=== PATIENT | female | born 1975 | race Caucasian/White ===

== ENCOUNTER → 2020-06-24 15:28 | Outpatient (CLI) | payer OTHER, MEDICAID, SELFPAY | PROVIDERS: PCP Pediatrics; Visit Provider Nurse Practitioner Family | DX: Z03.818 Encounter for observation for suspected exposure to other biological agents ruled out (principal) | CPT/HCPCS: U0003 ==

== ENCOUNTER → 2020-08-21 12:51 | Outpatient (CLI) | payer BC, MEDICAID, SELFPAY ==
[2020-08-22 09:21] LABS: Covid-19 Nasal PCR Sendout Lex NOT DETECTED
== END ==
PROVIDERS: PCP Family Medicine; Visit Provider Family Medicine
DX: Z03.818 Encounter for observation for suspected exposure to other biological agents ruled out (principal)
CPT/HCPCS: U0004

== ENCOUNTER → 2020-08-27 12:22 | Outpatient (CLI) | payer OTHER, SELFPAY ==
[2020-08-27 15:35] LABS: Coronavirus 19 IgG Antibody Negative (Negative); Coronavirus 19 IgM Antibody Negative (Negative)
[2020-08-28 16:04] LABS: Covid-19 Nasal PCR Sendout Lex Not Detected
== END ==
PROVIDERS: PCP Family Medicine; Visit Provider Family Medicine
DX: Z03.818 Encounter for observation for suspected exposure to other biological agents ruled out (principal); Z01.84 Encounter for antibody response examination
CPT/HCPCS: 86328; U0004

== ENCOUNTER 2020-09-04 10:34 | Outpatient (CLI) | payer OTHER, SELFPAY ==
[2020-09-04 11:00] VITALS: BP 96/56; PULSE 78; RESP 18; TEMP 35.9
== END 2020-09-04 11:00 | disposition home or self-care (01) ==
PROVIDERS: PCP Family Medicine; Visit Provider Family Medicine
DX: M62.830 Muscle spasm of back (principal)
CPT/HCPCS: 96372

== ENCOUNTER 2020-09-04 13:06 | Emergency (ER) | payer OTHER, MEDICAID, SELFPAY ==
[2020-09-04 13:11] VITALS: BP 115/62; PULSE 82; RESP 17; TEMP 36.8; O2SAT 100; BMI 31.4
--- NOTE | 2020-09-04 13:24 | HMH.EDGENADL ---
ED Disposition Clinical Impression: Back spasm Disposition: Home, Self-Care Condition on Discharge: Good Instructions: DI for Chronic Pain -- Adult Prescriptions: Ketorolac Tromethamine [Toradol 10mg tablet] 10 mg PO Q6H 5 Days #20 tab Transmission Status: Pending to [facility][id number] Referrals: Jerry Malcolm MD [Primary Care Provider] - - Critical Care Critical Care Time: No Attestation: On 09/04/20, the high probability of a clinically significant, sudden or life threatening deterioration of the following system(s) required my full and direct attention, intervention and personal management. The time I documented below is in addition to time spent performing reported procedures but includes the following listed in this critical care notation. Medical Decision Making - Medical Records Medical records reviewed: Yes: I reviewed the patient's medical records. - Tim Inquiry Pt receiving controlled substance: No Tim was queried for this patient: No Vital Signs: 09/04/20 13:11 09/04/20 13:37 09/04/20 14:14 Temperature 98.2 F Temperature Source Oral Pulse Rate [Right Radial] 82 60 61 Respiratory Rate 17 20 18 Blood Pressure [Right Arm] 115/62 100/62 L 98/62 L Blood Pressure Mean [Right Arm] 79 74 74 Blood Pressure Source [Right Arm] Automatic Cuff Automatic Cuff Blood Pressure Position [Right Arm] Sitting Sitting 02 Sat by Pulse Oximetry 100 97 95 Oxygen Delivery Method Room Air Room Air Room Air Orders (Tests/Meds): ED MEDICATIONS Discontinued Medications Generic Name Dose Route Start Last Admin Trade Name Freq PRN Reason Stop Dose Admin Hydromorphone HCl 1 mg 09/04/20 13:25 09/04/20 13:33 Hydromorphone 2mg/Ml Syringe IM 09/04/20 13:26 1 mg ONCE ONE Administration Ketorolac Tromethamine 60 mg 09/04/20 13:24 09/04/20 13:33 Ketorolac 60mg/2ml Vial IM 09/04/20 13:25 60 mg ONCE ONE Administration Medical Decision Narrative: Patient presented with back spasm as above. She was in no acute distress nontoxic-appearing however did have spasm, no red flags for emergent pathology infection cancer or trauma. Given IM dose of Toradol and Dilaudid with marked improvement and she is requesting be discharged home with Toradol as needed. Plan to give p.o. dose. And discharged home General Adult HPI - General Chief complaint: PAIN Stated complaint: Muscle spasm in back Time Seen by Provider: 09/04/20 13:25 Mode of Arrival: Ambulatory Limitations: No Limitations Description of Symptoms (Recalled from ER Triage Doc. by RN): pt presents to ed with c/o muscle spasms in her back. pt states she has had this problem for 26 years. pt states that she hasnt had spasms this bad in approx 1 year. - History of Present Illness HPI narrative: Patient presents with back spasms that she has had for over 20 years. She says that she normally receives intramuscular pain medicine for this. She is in distress on initial evaluation and sitting up in the room. No new trauma or injuries. No fever or chills. No nausea vomiting chest pain abdominal pain. She has been evaluated by a pain management physician however has not been able to get into see them. Location: back Radiation: back Severity: moderate Severity scale (1-10): 5 Consistency: intermittent Relieving factors: none - Related Data Home Medications Medication Instructions Recorded Confirmed Aspirin 81 mg PO DAILY 09/04/20 09/04/20 Atorvastatin Calcium [Lipitor 20mg 20 mg PO HS 09/04/20 09/04/20 Tab] Ibuprofen [Ibuprofen 800mg 800 mg PO TIDP PRN 09/04/20 09/04/20 Tablet] Quetiapine Fumarate [Seroquel 25mg 25 mg PO HS 09/04/20 09/04/20 tablet] Tizanidine HCl 4 mg PO Q8 PRN 09/04/20 09/04/20 hydrOXYzine HCL [Hydroxyzine HCl] 50 mg PO DAILY 09/04/20 09/04/20 lisinopriL [Lisinopril 20mg Tab] 20 mg PO DAILY 09/04/20 09/04/20 Previous Rx's Medication Instructions Recorded Keto
--- NOTE | 2020-09-04 13:33 | PC.NURSE ---
listed toradol allergy. pt states she is not allergic to toradol and states she has had it recently. toradol given per md order. see mar.
[2020-09-04 13:37] VITALS: BP 100/62; PULSE 60; RESP 20; O2SAT 97
[2020-09-04 14:14] VITALS: BP 98/62; PULSE 61; RESP 18; O2SAT 95
[2020-09-04 14:37] VITALS: BP 117/72; PULSE 62; RESP 20; O2SAT 99
[2020-09-04 14:53] VITALS: BP 117/72; PULSE 62; RESP 17; TEMP 36.8; O2SAT 98
== END 2020-09-04 14:58 | disposition home or self-care (01) ==
PROVIDERS: Emergency Provider Emergency Medicine; PCP Family Medicine
DX: M62.830 Muscle spasm of back (principal); M54.5 Low back pain; I10 Essential (primary) hypertension; E78.5 Hyperlipidemia, unspecified; Z88.5 Allergy status to narcotic agent; Z79.899 Other long term (current) drug therapy
CPT/HCPCS: 96372; 99282

== ENCOUNTER → 2020-10-21 10:23 | Outpatient (CLI) | payer OTHER, SELFPAY ==
[2020-10-22 09:02] LABS: Covid-19 Nasal PCR Sendout P&C POSITIVE
== END ==
PROVIDERS: PCP Nurse Practitioner Family; Visit Provider Nurse Practitioner Family
DX: U07.1 COVID-19 (principal)
CPT/HCPCS: U0004

== ENCOUNTER 2020-10-29 20:01 | Emergency (ER) | payer OTHER, SELFPAY ==
[2020-10-29] VITALS (8 sets, daily range): BP systolic 132–191; BP diastolic 84–114; PULSE 77–124; RESP 22–24; TEMP 37.2; O2SAT 95–99; BMI 32.3
--- NOTE | 2020-10-29 20:36 | CT_ITS ---
PROCEDURE: CT ANGIO CHEST CLINCIAL INDICATION: SOA Shortness of breath, cough, Covid19 positive COMPARISON: No exams were available for comparison TECHNIQUE: IV Contrast: 70ML Isovue 370 Axial images obtained with sagittal and coronal reformats. All CT scans at the facility use one or more dose reduction, viz: automated exposure control, ma/kV adjustment per patient size (including targeted exams where dose is matched to indication, i.e. head), or iterative reconstruction technique. FINDINGS: HEART AND MEDIASTINAL STRUCTURES: No evidence of pulmonary embolus, aortic aneurysm, or aortic dissection. LUNGS AND PLEURAL SPACES: Patchy ground-glass infiltrates are present in the right lower lobe nonspecific but may be seen with early Covid19 pneumonia. No effusions. No dense consolidation or pneumothorax. BONY STRUCTURES: No acute bony abnormalities apparent. UPPER ABDOMEN: Unremarkable. ADDITIONAL FINDINGS: No other significant abnormalities. IMPRESSION: 1. No evidence of pulmonary embolus, aortic aneurysm, or aortic dissection.. 2. Suspect early Covid19 pneumonia right lower lobe Dictated by: Bradley Benjamin MD 10/30/2020 06:37 Bradley Benjamin MD in [facility] 10/30/2020 06:37
--- NOTE | 2020-10-29 20:36 | XR_ITS ---
PROCEDURE: XR CHEST PORTABLE CLINICAL HISTORY: SOA COMPARISON: CT CT ANGIO CHEST from 10/29/2020 FINDINGS: The cardiomediastinal silhouette and pulmonary vascularity are within normal limits. Faint opacity right lung base overlying the 5th rib anteriorly the. The remaining are clear. No acute bony abnormalities. IMPRESSION: Faint opacity right lung base and may be due to developing nodule or infiltrate. Chest CT may provide further evaluation. Dictated by: Bradley Benjamin MD 10/30/2020 05:24 Bradley Benjamin MD in [facility] 10/30/2020 05:24
[2020-10-29 20:44] LABS: Basophils # 0.1 K/mm3 (0-0.2); Basophils % 1.1 % (0.1-2.0); Eosinophils # 0.2 K/mm3 (0.0-0.4); Eosinophils % 1.7 % (0.1-12.0); Hematocrit 40.9 % (37.0-47.0); Hemoglobin 12.9 g/dL (12.2-16.2); Lymphocytes # 3.4 K/mm3 (0.7-4.5); Lymphocytes % 36.1 % (10-50); Mean Corpuscular HGB Conc 31.6 g/dL (31.8-35.4); Mean Corpuscular Hemoglobin 24.2 pg (27.0-31.2); Mean Corpuscular Volume 76.3 fl (81-99); Mean Platelet Volume 6.4 fl (7.4-10.4); Monocytes # 0.4 K/mm3 (0.1-1.0); Monocytes % 4.4 % (1.7-9.3); Neutrophils # 5.4 K/mm3 (1.8-7.8); Neutrophils % 56.8 % (37.0-80.0); Platelet Count 495 K/mm3 (142-424); Red Blood Count 5.36 M/mm3 (4.20-5.40); Red Cell Distribution Width 13.9 % (11.5-17.5); White Blood Count 9.5 K/mm3 (4.8-10.8)
[2020-10-29 20:49] LABS: Alanine Aminotransferase 44 U/L (12-78); Alkaline Phosphatase 105 U/L (38-126); Anion Gap 18.7 mEq/L (5-15); Aspartate Amino Transferase 33 U/L (14-36); Bilirubin,Direct 0.3 mg/dl (0.0-0.4); Bilirubin,Indirect 0.1 mg/dL (0.0-0.9); Bilirubin,Total 0.4 mg/dl (0.2-1.3); Bilirubin,Unconjugated 0.1 mg/dL (0.0-1.1); Blood Urea Nitrogen 8 mg/dl (7-17); Calcium 10.2 mg/dl (8.4-10.2); Carbon Dioxide 22 mmol/L (22.0-30.0); Chloride 102 mmol/L (98-107); Creatinine Clearance Estimated 115 mL/min (50-200); Estimated Glomerular Filt Rate 68 ml/min (>60); GFR (African American) 83 ML/MIN (>60); Glucose 121 mg/dl (74-100); Potassium 3.7 mmoL/L (3.5-5.1); Sodium 139 mmol/L (136-145); Total Protein,Serum 8.8 g/dl (6.3-8.2)
[2020-10-29 20:54] LABS: C-Reactive Protein 1.4 mg/L (0-4)
--- NOTE | 2020-10-29 20:56 | HMH.EDSOB ---
ED Disposition Clinical Impression: Pneumonia due to COVID-19 virus Disposition: Home, Self-Care Condition on Discharge: Good Instructions: DI for COVID-19 (Suspected or Confirmed ) Additional Instructions: call pcp in am Referrals: Patrizia Rice APRN [Primary Care Provider] - - Critical Care Critical Care Time: No Attestation: On 10/29/20, the high probability of a clinically significant, sudden or life threatening deterioration of the following system(s) required my full and direct attention, intervention and personal management. The time I documented below is in addition to time spent performing reported procedures but includes the following listed in this critical care notation. Medical Decision Making - Medical Records Medical records reviewed: Yes: I reviewed the patient's medical records. - Tim Inquiry Pt receiving controlled substance: No Vital Signs: 10/29/20 20:05 10/29/20 20:32 10/29/20 21:02 Temperature 99.0 F Temperature Source Oral Pulse Rate [Right Radial] 124 H 85 80 Respiratory Rate 24 22 Blood Pressure [Right Arm] 191/114 H 135/98 H 184/99 H Blood Pressure Mean [Right Arm] 139 110 127 Blood Pressure Source [Right Arm] Automatic Cuff Automatic Cuff Blood Pressure Position [Right Arm] Supine Sitting 02 Sat by Pulse Oximetry 99 98 98 Oxygen Delivery Method Room Air Room Air Room Air 10/29/20 21:30 10/29/20 22:00 10/29/20 22:30 Temperature Temperature Source Pulse Rate [Right Radial] 79 84 78 Respiratory Rate 24 Blood Pressure [Right Arm] 155/92 H 132/92 H 148/99 H Blood Pressure Mean [Right Arm] 113 105 115 Blood Pressure Source [Right Arm] Automatic Cuff Automatic Cuff Automatic Cuff Blood Pressure Position [Right Arm] Supine Supine Supine 02 Sat by Pulse Oximetry 95 95 96 Oxygen Delivery Method Room Air Room Air Room Air 10/29/20 23:00 10/29/20 23:30 Temperature Temperature Source Pulse Rate [Right Radial] 80 77 Respiratory Rate 22 Blood Pressure [Right Arm] 142/88 H 146/84 H Blood Pressure Mean [Right Arm] 106 104 Blood Pressure Source [Right Arm] Automatic Cuff Automatic Cuff Blood Pressure Position [Right Arm] Supine Supine 02 Sat by Pulse Oximetry 95 95 Oxygen Delivery Method Room Air Room Air - Lab Data Lab results reviewed: Yes: I reviewed the patient's lab results. Lab Results 10/29/20 20:20: WBC 9.5, RBC 5.36, Hgb 12.9, Hct 40.9, MCV 76.3 L, MCH 24.2 L, MCHC 31.6 L, RDW 13.9, Plt Count 495 H, MPV 6.4 L, Neut % (Auto) 56.8, Lymph % (Auto) 36.1, [place] % (Auto) 4.4, Eos % (Auto) 1.7, Baso % (Auto) 1.1, Neut # (Auto) 5.4, Lymph # (Auto) 3.4, [place] # (Auto) 0.4, Eos # (Auto) 0.2, Baso # (Auto) 0.1 10/29/20 20:20: Sodium 139, Potassium 3.7, Chloride 102, Carbon Dioxide 22, Anion Gap 18.7 H, BUN 8, Creatinine 0.90, Estimated Creat Clear 115, Estimated GFR 68, Est GFR ( Amer) 83, Glucose 121 H, Calcium 10.2, Total Bilirubin 0.4, Direct Bilirubin 0.3, Conjugated Bilirubin 0.0, Indirect Bilirubin 0.1, Unconjugated Bilirubin 0.1, AST 33, ALT 44, Alkaline Phosphatase 105, Troponin I < 0.01, C-Reactive Protein 1.4, Total Protein 8.8 H, Albumin 5.0 10/29/20 20:20: ESR 19 10/29/20 20:20: Lactate 3.9 H 10/29/20 20:20: Procalcitonin < 0.030 10/29/20 21:30: Urine Color Yellow, Urine Appearance Clear, Urine pH 7.0, Ur Specific [place] 1.010, Urine Protein Negative, Urine Glucose (UA) Negative, Urine Ketones Negative, Urine Blood Trace-l, Urine Nitrate Negative, Urine Bilirubin Negative, Urine Urobilinogen 0.2, Ur Leukocyte Esterase Negative, Urine WBC 3-5, Ur Squamous Epith Cells Tntc, Urine Bacteria 1+ Result diagrams: 10/29/20 20:20 10/29/20 20:20 Orders (Tests/Meds): ED MEDICATIONS Generic Name Dose Route Start Last Admin Trade Name Freq PRN Reason Stop Dose Admin Benzonatate 100 mg 10/29/20 21:00 10/29/20 23:50 Benzonatate 100mg Capsule PO 11/28/20 20:59 100 mg ONCE DINAH Administration Sodium Chloride 1,000 mls @ 999 mls/hr
[2020-10-29 20:57] LABS: Lactic Acid 3.9 mmol/L (0.7-2.1)
[2020-10-29 21:06] LABS: Troponin I < 0.01 ng/ml (0.00-0.034)
--- NOTE | 2020-10-29 21:06 | PC.NURSE ---
Pt gone to CT scan at 2103 via stretcher.
[2020-10-29 21:12] LABS: Erythrocyte Sedimentation Rate 19 mm/hr (0-20)
[2020-10-29 21:17] LABS: Procalcitonin < 0.030 ng/mL (0.0-2.0)
--- NOTE | 2020-10-29 21:33 | PC.NURSE ---
Pt back from CT @ 886
[2020-10-29 21:36] LABS: Microscopic, Urine URINE MICROSCOPIC (MICROSCOPIC)
[2020-10-29 21:42] LABS: Appearance,Urine CLEAR (Clear); Bilirubin,Urine Negative (Negative); Blood, Urine TRACE-L (Negative); Color,Urine YELLOW (Yellow); Glucose,Urine (UA) Negative (Negative); Ketones,Urine Negative (Negative); Leukocyte Esterase,Urine Negative (Negative); Nitrate,Urine Negative (Negative); Protein,Urine Negative (Negative); Urobilinogen,Urine 0.2 EU/dl (0.2)
--- NOTE | 2020-10-29 21:52 | PC.NURSE ---
was notified of lactic. Pt is covid positive. Pt has already received Rocephin and Azithromycin currently infusing.
[2020-10-29 21:53] LABS: Bacteria,Urine 1+ /lpf; Squamous Epithelial Cell,Urine TNTC #/hpf (0-5)
[2020-10-29 23:53] LABS: Reflex Lactic Add Lactic Reflex
[2020-10-30 00:19] LABS: Troponin I < 0.01 ng/ml (0.00-0.034)
[2020-10-30 00:35] VITALS: BP 142/82; PULSE 75; RESP 22; TEMP 37.2; O2SAT 97
== END 2020-10-30 00:35 | disposition home or self-care (01) ==
PROVIDERS: Emergency Provider Emergency Medicine; PCP Nurse Practitioner Family
DX: U07.1 COVID-19 (principal); J12.82 Pneumonia due to coronavirus disease 2019; E78.5 Hyperlipidemia, unspecified; I10 Essential (primary) hypertension; Z79.899 Other long term (current) drug therapy
CPT/HCPCS: 71045; 71275; 80048; 80076; 81001; 83605; 84145; 84484; 85025; 85651; 86140; 87040; 96365; 96366; 96367; 96375; 99284; J0456; J2405; Q9967

== ENCOUNTER → 2021-01-28 16:14 | Outpatient (CLI) | payer OTHER, SELFPAY ==
--- NOTE | 2021-01-28 16:19 | XR_ITS ---
PROCEDURE INFORMATION: Exam: XR Entire Spine, 6 or More Views, Scoliosis Exam date and time: 01/28/2021 4:19 PM Age: 45 years old Clinical indication: Low back pain; Additional info: Muscle spasm, low back pain, other chronic pain TECHNIQUE: Imaging protocol: XR of the entire spine. 6 or more views. Evaluation for scoliosis. COMPARISON: No relevant prior studies available. FINDINGS: Vertebrae: Mild degenerative changes of the cervical, thoracic and lumbar spine. No evidence of scoliosis. The facet joints demonstrate mild degenerative hypertrophy and sclerosis. There is no evidence of acute fracture. Intraperitoneal space: There has been a cholecystectomy. Gastrointestinal tract: A large amount of stool is noted throughout the colon. Soft tissues: Normal. IMPRESSION: 1. Mild degenerative changes of the cervical, thoracic and lumbar spine. 2. No evidence of scoliosis. 3. No evidence of acute fracture. 4. A large amount of stool is noted throughout the colon.
== END ==
PROVIDERS: PCP Family Medicine; Visit Provider Family Medicine
DX: M54.5 Low back pain (principal); G89.29 Other chronic pain; M62.838 Other muscle spasm; M54.2 Cervicalgia; M54.6 Pain in thoracic spine
CPT/HCPCS: 72084

== ENCOUNTER → 2021-02-03 13:14 | Outpatient (POV) | payer OTHER, SELFPAY ==
[2021-02-03 13:37] VITALS: BP 153/67; PULSE 87; RESP 18; O2SAT 98; BMI 33.3
--- NOTE | 2021-02-03 14:51 | HMH.PMCON ---
Assessment and Plan (1) Sacroiliitis Status: Chronic Category: Medical Code(s): M46.1 - Sacroiliitis, not elsewhere classified - Assessment and plan all Dx Assessment and Plan for all problems:: We will schedule the patient for left SI joint injection given her symptomology I do believe this would benefit her. She is failed epidurals, medication management and other conservative therapies for over 6 weeks. I will follow-up with her after her injection reassess her symptoms at that time she has been instructed to call the office if she has any issues prior to her next appointment. Dr. Brownlee has reviewed this note and agrees with this plan of care. This note was dictated using voice recognition software and may contain errors or omissions HPI - Data of Consult Consult date: 02/03/21 Requesting Physician: Rocio Neves APRN Primary Care Provider: Billie De MD - Consult Narrative Reason for consult: Back pain History of present illness: Ms. Isaac is a 45 year old female who presents today for consultation regards to her low back pain. She is had low back pain for many years specifically more on the left side. She has radiation into her groin and down her leg but it does not past her knee. Patient has had multiple epidural injections and facet joint injections with Dr. Bender in the past with no long-term relief. Patient does have a positive Raffaele test SI joint compression test Jer's test and distraction test on the left side. Patient rates her pain today as 8 out of 10. Patient's tried and failed over 6 weeks of medication management and other conservative therapies including physical therapy. Patient and I discussed SI joint injection. She is agreeable CC: Rocio Neves APRN [facility] History I have reviewed the patient's past medical history: Yes Medical History: Reports:: Diabetes Mellitus Type 2, Hyperlipidemia, Hypertension, Myocardial Infarction Denies:: Cancer, Diabetes Mellitus Type 1, Internal Pacemaker, MRSA *Have you ever received a pneumonia vaccine?: Yes *Have you received a flu vaccine this season?: Yes Other Medical History: Reports: Arthritis Laterality Cases: Right: Arthroscopy Shoulder Other Surgeries: Yes: Cholecystectomy, Tubal Ligation. No: Pacemaker Amputation: No Fractures: No - *Social History Smoking Status: Never smoker Alcohol Intake: never Alcohol Intake Frequency:: a few times a month *Occupational Status:: other Housing: homeless Household Members: other *Travel in the last 8 weeks: None Family Hx:: Unable to obtain Review of Systems - Review of Systems ROS General: no recent weight change, no fever, no sleep disturbances Respiratory: no cough, no shortness of air, no recurring pulmonary infections Cardiovascular/Peripheral Vascular: No chest pain, No palpitations, no edema, no shortness of breath. Gastrointestinal: no new onset incontinence, normal bowel movements reported Genitourinary: no new onset incontinence Musculoskeletal: SI joint pain Psychiatric: normal mood/ affect Neurological: [denies new onset weakness in extremities], [denies new onset balance issues] Meds Home Medications Medication Instructions Recorded Confirmed Type Ibuprofen [Ibuprofen 800mg 800 mg PO TIDP PRN 09/04/20 10/29/20 History Tablet] Allergies Allergy/AdvReac Type Severity Reaction Status Date / Time fentanyl Allergy Severe Anxiety Verified 10/29/20 20:20 From [facility] Allergy Intermediate Muscle Pain Uncoded 10/29/20 20:20 MORPHINE Allergy Mild NERVOUSNESS Uncoded 10/29/20 20:20 Opioid Allergy Unknown nervousness Uncoded 10/29/20 20:20 Objective Vital signs: Pulse Resp BP Pulse Ox 87 18 153/67 H 98 02/03/21 13:37 02/03/21 13:37 02/03/21 13:37 02/03/21 13:37 Narrative: Physical Exam General: Alert and oriented x3, no acute distress, pleasant and cooperative, [on room air] Lungs: Resps E/U, Symmetrical chest ex
== END ==
PROVIDERS: PCP Family Medicine; Visit Provider Clinical Nurse Specialist Family Health
DX: M46.1 Sacroiliitis, not elsewhere classified (principal)
CPT/HCPCS: 99202; G0463

== ENCOUNTER 2021-02-14 10:12 | Day surgery (SDC) | payer OTHER, SELFPAY ==
[2021-02-14 10:37] VITALS: BP 148/88; PULSE 84; RESP 18; TEMP 36.6; O2SAT 84; BMI 34.3
--- NOTE | 2021-02-14 11:19 | HMH.PMPROC ---
- Procedure Date: 02/14/21 Time: 11:19 Anesthesiologist:: Ramo Brownlee MD Complications:: None Pre-procedure Diagnosis:: Sacroiliitis Post-procedure Diagnosis:: Same Indications for Procedure:: This patient is a pleasant 45-year-old white female who we are treating for left-sided hip pain. She is tender over her left SI joint. She does have a positive Jer's test on the left side. She is positive Raffaele is on left side. She has positive SI joint compression test on the left side. We will plan a left SI joint junction under fluoroscopy today to help with pain symptoms. Procedure Details:: Left SI joint injection under fluoroscopy Informed consent was obtained and the risks and benefits of the procedure was explained to the patient. Patient was taken to the procedure room. Patient was placed prone on the procedure table. The left hip was prepped using ChloraPrep. The skin and subcutaneous tissues were anesthetized using lidocaine. I placed a 22-gauge spinal needle into the inferior aspect of the left SI joint. Needle placement was confirmed with dye. After this we injected 5 mL bupivacaine 0.25% and Depo-Medrol 40 mg into the left SI joint. The patient tolerated the procedure well with no complication. Plan and Disposition:: We will follow-up with her in 2 weeks. Will reevaluate her symptoms at that time.
[2021-02-14 11:23] VITALS: BP 149/96; PULSE 69; RESP 20; O2SAT 97
[2021-02-14 11:26] VITALS: BP 125/85; PULSE 74
[2021-02-14 11:27] VITALS: BP 128/89; PULSE 79; RESP 18; O2SAT 99
== END 2021-02-14 11:24 | disposition home or self-care (01) ==
LOC: SC.PAINP 10:15
PROVIDERS: PCP Family Medicine; Visit Provider Anesthesiology
DX: M46.1 Sacroiliitis, not elsewhere classified (principal); I25.2 Old myocardial infarction; E78.5 Hyperlipidemia, unspecified; I10 Essential (primary) hypertension; E11.9 Type 2 diabetes mellitus without complications; M19.90 Unspecified osteoarthritis, unspecified site; Z88.6 Allergy status to analgesic agent; Z88.8 Allergy status to other drugs, medicaments and biological substances; Z88.1 Allergy status to other antibiotic agents
CPT/HCPCS: 27096; G0260; J1040; Q9966

== ENCOUNTER → 2021-02-27 16:51 | Outpatient (CLI) | payer OTHER, SELFPAY | PROVIDERS: PCP Nurse Practitioner Family; Visit Provider Nurse Practitioner Family | DX: Z20.822 Contact with and (suspected) exposure to COVID-19 (principal) | CPT/HCPCS: U0003 ==

== ENCOUNTER → 2021-03-24 14:48 | Outpatient (POV) | payer OTHER, SELFPAY ==
[2021-03-24 14:54] VITALS: BP 125/80; PULSE 94; RESP 18; O2SAT 99; BMI 31.3
--- NOTE | 2021-03-24 15:32 | HMH.PAINSOAP ---
[facility] Pain Management SOAP Note Subjective:: Patient is a 45-year-old white female who presents today for follow-up. She has been treated for chronic low back pain as well as chronic neck pain. She is recently undergone SI joint injections. Patient did not get any relief with the injections. She does say that she has tried lumbar and cervical epidural steroid injections as well as medial branch blocks with no significant relief in the past. Patient's pain starts in the neck radiating into the shoulders, mid back, and low back. She is also having pain in her left buttock and left leg. Patient feels that most of her pain is stemming from her neck. She has tried muscle relaxers along with large doses of anti-inflammatories with no significant relief. She says with all injections, her pain returns within 72 hours. She is not gotten any significant relief. Her last MRI of her cervical spine was approximately 3 to 4 years ago. Patient says her pain is unbearable and limiting her ability to work. She has tried and failed conservative therapies of physical therapy for greater than 6 weeks along with continued home stretching. She is continuing with anti-inflammatories. She rates her pain a 7 out of 10 today. Patient is very tearful and is having a great deal of pain today. Review of Systems General: No recent weight changes, no fever, no sleep disturbances Respiratory: No cough, no shortness of air, no recurring pulmonary infections Cardiovascular/peripheral vascular: No chest pain, no palpitations, no edema, no shortness of breath Gastrointestinal: No new onset incontinence, normal bowel movements reported Genitourinary: No new onset incontinence Musculoskeletal: Neck pain radiating into bilateral shoulders, mid back pain, low back pain radiating into left buttock and left leg Psychiatric: Normal mood/affect Neurological: [Denies weakness in extremities], [denies balance issues] Objective:: Physical exam General: Alert and oriented x3, no acute distress, pleasant and cooperative, [on room air] Lungs: Respirations even and unlabored, symmetrical chest expansion Eyes: PERRL Musculoskeletal: Flexion and extension of [] cervical, thoracic, lumbar spine somewhat guarded secondary to pain, deep tendon reflexes normal, strength in upper and lower extremities [5/5], slightly antalgic gait noted Neurological: Speech clear, data processing auditor equal, no gross sensory deficit Assessment:: Chronic neck pain with cervical radiculopathy, low back pain with lumbar radiculopathy, mid back pain Plan:: We will schedule the patient for a MRI of her cervical spine. She has not had any imaging of her cervical spine in 3 or 4 years. Her pain, she feels, is coming from her neck. Patient has tried and failed conservative therapies of physical therapy for more than 6 weeks along with continued home stretching and anti-inflammatories. She is still taking anti-inflammatories and home stretching. At this point she has failed all conservative measures. She has tried multiple injections with no relief more than 72 hours. She has tried muscle relaxers as well. We will order her tramadol 50 mg 1 tablet p.o. twice daily for 1 month only until we can get an MRI of her cervical spine and likely refer her to neurosurgery or explore intrathecal therapy option. Her pain starts at her neck and does radiate into her lumbar spine and legs. We will schedule her for psychological evaluation as well. We will see her back in the clinic afterwards to discuss her MRI and psychological evaluation. She has been instructed to contact clinic if she has any concerns before next appointment. Risks and benefits of the medication have been explained in detail to the patient. The patient has been advised to consult with his/her primary care provider and pharmacist regarding drug-drug interaction of medications currently prescribed. Patient has been instructed to contact the clinic with
== END ==
PROVIDERS: Visit Provider Clinical Nurse Specialist Family Health
DX: M54.2 Cervicalgia (principal); M54.12 Radiculopathy, cervical region; M54.16 Radiculopathy, lumbar region; M54.5 Low back pain; M54.6 Pain in thoracic spine
CPT/HCPCS: 99212; G0463

== ENCOUNTER → 2021-04-24 15:32 | Outpatient (POV) | payer OTHER, SELFPAY ==
[2021-04-24 15:41] VITALS: BP 139/90; PULSE 92; RESP 18; O2SAT 97; BMI 31.3
--- NOTE | 2021-04-24 15:57 | HMH.PAINSOAP ---
[facility] Pain Management SOAP Note Subjective:: Patient is a 45-year-old white female who presents today for follow-up. She has been treated for chronic low back pain as well as chronic neck pain. She recently changed insurances approximately 6 months ago. Patient has had conservative treatments which was covered by her previous insurance. She has had injections to her lumbar spine as well as her SI injections. She did undergo physical therapy for more than 6 weeks and has taken large doses of muscle relaxers and anti-inflammatories with no relief. With all injections she has received in our clinic, her pain returns within 72 hours. The patient has had medial branch block/facet joint injections which have only given her up to 72 hours of relief for less than 40%. She has tried tramadol as well as hydrocodone for greater than 6 months intermittently. She has tried physical therapy for greater than 6 weeks. She has tried anti-inflammatories for greater than 6 weeks. She has tried injective therapy and is currently on corticosteroids. The patient is having severe headaches which is now affecting her quality of life. She is having to call off from work due to dizziness, migraine-like headaches, and inability to perform daily functions. Unfortunately, she was denied by her insurance and MRI of her cervical spine to determine pathology. She is very tearful today because she is concerned this will prevent her from being able to do her job. Medication is not helping her, physical therapy made her worse, home stretching is not beneficial, nor ice or heat therapies. At this point, she is limited with options. We did discuss ordering a CT scan since the MRI was denied. She would like to try this. Her pain is worse in her neck at this time than her low back. The pain is in the neck area radiating into her head. Review of Systems General: No recent weight changes, no fever, no sleep disturbances Respiratory: No cough, no shortness of air, no recurring pulmonary infections Cardiovascular/peripheral vascular: No chest pain, no palpitations, no edema, no shortness of breath Gastrointestinal: No new onset incontinence, normal bowel movements reported Genitourinary: No new onset incontinence Musculoskeletal: Neck pain with radiation into head causing migraine-like headaches along with dizziness Psychiatric: Normal mood/affect Neurological: [Denies weakness in extremities], [denies balance issues] Objective:: Physical exam General: Alert and oriented x3, no acute distress, pleasant and cooperative, [on room air] Lungs: Respirations even and unlabored, symmetrical chest expansion Eyes: PERRL Musculoskeletal: Flexion and extension of cervical spine somewhat guarded secondary to pain, deep tendon reflexes normal, strength in upper and lower extremities [5/5], normal gait noted Neurological: Speech clear, 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 Unfortunately, the insurance has denied her MRI. Her pain is now limiting her ability to perform her job. She is having to miss days of work due to the significant pain. Her pain is progressively worsening. Her pain is a 10 out of 10 today. She is very tearful because she does want to continue to work, however, she is now limited. Her pain is primarily in her neck and radiating into the hand. She has tried physical therapy for more than 6 weeks, no relief. She has tried large doses of anti-inflammatories, muscle relaxers, hydrocodone, and tramadol, no relief. She has tried home stretching program, no relief. She has tried ice and heat therapies, no relief. She is currently taking corticosteroids, but continues to have pain. Patient has had more than 6 months of treatment in our clinic. She has changed insurances within the last 6 months. We will schedule her fo
== END ==
PROVIDERS: PCP Family Medicine; Visit Provider Clinical Nurse Specialist Family Health
DX: M54.2 Cervicalgia (principal); M54.12 Radiculopathy, cervical region; R51.9 Headache, unspecified
CPT/HCPCS: 99212; G0463

== ENCOUNTER → 2021-04-29 15:04 | Outpatient (CLI) | payer OTHER, SELFPAY ==
--- NOTE | 2021-04-29 15:34 | MR_ITS ---
PROCEDURE: MR HEAD/BRAIN WO/W CON CLINICAL INDICATION: DAILY PERSISTENT HEADACHE, VERTIGO, NAUSEA, VISUAL DISTURBAN COMPARISON: No exams were available for comparison TECHNIQUE: Routine multiplanar multi echo sequences are performed without and with gadolinium enhancement. FINDINGS: No restricted diffusion. No evidence of acute infarction.. No midline shift or mass effect. No acute intracranial hemorrhage or hydrocephalus. The cerebellopontine angles, cerebellum, and brainstem have an unremarkable appearance. Unremarkable white matter signal intensity. No enhancing lesions are evident. The pituitary, optic chiasm, corpus callosum, and craniocervical junction have an unremarkable appearance. The hippocampal gyri are unremarkable in the temporal horns are symmetric. No mastoid effusion or sinus air-fluid level. IMPRESSION: Negative MRI of the brain without and with contrast. Dictated by: Bradley Benjamin MD 04/29/2021 17:44 Bradley Benjamin MD in [facility] 04/29/2021 17:44
== END ==
PROVIDERS: PCP Family Medicine; Visit Provider Family Medicine
DX: G44.52 New daily persistent headache (NDPH) (principal); R42 Dizziness and giddiness; H53.9 Unspecified visual disturbance; R11.0 Nausea
CPT/HCPCS: 70553; A9576

== ENCOUNTER → 2021-06-02 13:11 | Outpatient (CLI) | payer OTHER, SELFPAY ==
--- NOTE | 2021-06-02 13:17 | XR_ITS ---
PROCEDURE: XR CERVICAL SPINE W FLEX/EXT CLINICAL INDICATION: neck pain, sudden onset headache COMPARISON: No exams were available for comparison FINDINGS: Normal alignment. No acute fracture or dislocation. There is degenerative disc disease at C6-C7 with endplate osteophytes. In the neutral position there is 2 mm retrolisthesis of C3 on C4. There is mild foraminal narrowing at C6-C7 on the right. The left foramina are not well demonstrated. Flexion and extension views are obtained showing no abnormal subluxation in flexion or extension. The retrolisthesis at C3-C4 increases to 3 mm in extension unremarkable in flexion. IMPRESSION: Degenerative changes as described above. Minimal retrolisthesis of C3 on C4 of 2 mm in neutral position which increases to 3 mm in extension. Dictated by: Bradley Benjamin MD 06/02/2021 14:29 Bradley Benjamin MD in [facility] 06/02/2021 14:29
--- NOTE | 2021-06-02 13:17 | CT_ITS ---
PROCEDURE: CT CERVICAL SPINE WO CON CLINICAL INDICATION: NECK PAIN COMPARISON: CR XR CERVICAL SPINE W FLEX/EXT from 06/02/2021 TECHNIQUE: Axial images obtained with sagittal and coronal reformats. All CT scans at the facility use one or more dose reduction, viz: automated exposure control, ma/kV adjustment per patient size (including targeted exams where dose is matched to indication, i.e. head), or iterative reconstruction technique. Axial spiral CT scanning performed of the cervical spine beginning at the base of the skull and continuing to the upper T-spine. 3-D multiplanar reconstruction with 3-D manipulation of volumetric data set in image rendering was completed by the radiologist and/or technologist with the supervision of the radiologist on independent workstation. FINDINGS: There is normal alignment. No acute fracture or dislocation is evident. No lytic or blastic change. C2-C3: Unremarkable. C3-C4: Unremarkable. C4-C5: Unremarkable. C5-C6: Mild degenerative disc disease. C6-C7: Degenerative disc disease with endplate hypertrophic change. There is a small central disc osteophyte complex with resultant canal stenosis of 9 mm. Minimal right foraminal narrowing C7-T1: Unremarkable. IMPRESSION: Degenerative disc disease at C6-C7 with endplate hypertrophy and a small central disc osteophyte complex with canal stenosis of 9 mm with minimal right-sided foraminal narrowing Dictated by: Bradley Benjamin MD 06/03/2021 10:55 Bradley Benjamin MD in [facility] 06/03/2021 10:55
[2021-06-02 14:32] LABS: Basophils # 0.1 K/mm3 (0-0.2); Eosinophils # 0.3 K/mm3 (0.0-0.4); Eosinophils % 3.4 % (0.1-12.0); Hematocrit 38.9 % (37.0-47.0); Hemoglobin 12.3 g/dL (12.2-16.2); Lymphocytes # 2.7 K/mm3 (0.7-4.5); Lymphocytes % 33.4 % (10-50); Mean Corpuscular HGB Conc 31.5 g/dL (31.8-35.4); Mean Corpuscular Volume 82.6 fl (81-99); Mean Platelet Volume 7.3 fl (7.4-10.4); Monocytes # 0.5 K/mm3 (0.1-1.0); Neutrophils # 4.5 K/mm3 (1.8-7.8); Neutrophils % 56.2 % (37.0-80.0); Platelet Count 374 K/mm3 (142-424); Red Blood Count 4.71 M/mm3 (4.20-5.40); Red Cell Distribution Width 14.7 % (11.5-17.5)
[2021-06-02 14:37] LABS: Alanine Aminotransferase 71 U/L (12-78); Albumin Level 4.4 g/dl (3.5-5.0); Albumin/Globulin Ratio 1.5 (1.1-1.8); Alkaline Phosphatase 82 U/L (38-126); Anion Gap 13.9 mEq/L (5-15); Aspartate Amino Transferase 46 U/L (14-36); Bilirubin,Total 0.3 mg/dl (0.2-1.3); Blood Urea Nitrogen 12 mg/dl (7-17); Calcium 9.3 mg/dl (8.4-10.2); Carbon Dioxide 26 mmol/L (22.0-30.0); Chloride 103 mmol/L (98-107); Estimated Glomerular Filt Rate 78 ml/min (>60); GFR (African American) 95 ML/MIN (>60); Glucose 111 mg/dl (74-100); Potassium 3.9 mmoL/L (3.5-5.1); Sodium 139 mmol/L (136-145); Total Protein,Serum 7.4 g/dl (6.3-8.2)
[2021-06-02 14:44] LABS: C-Reactive Protein 3.4 mg/L (0-4)
[2021-06-02 15:12] LABS: Erythrocyte Sedimentation Rate 18 mm/hr (0-20)
[2021-06-02 15:44] LABS: Vitamin B12 356 pg/mL (239-931)
[2021-06-02 22:07] LABS: Thyroid Stimulating Hormone 3.01 uIU/mL (0.465-4.68)
== END ==
PROVIDERS: Nurse Practitioner Family; PCP Family Medicine; Visit Provider Clinical Nurse Specialist Family Health
DX: R42 Dizziness and giddiness (principal); R51.9 Headache, unspecified; M54.2 Cervicalgia; M62.89 Other specified disorders of muscle
CPT/HCPCS: 36415; 72052; 72125; 80053; 82607; 82746; 84443; 85025; 85651; 86140; 86618

== ENCOUNTER → 2021-06-04 07:44 | Outpatient (CLI) | payer OTHER, SELFPAY ==
--- NOTE | 2021-06-04 07:45 | MR_ITS ---
PROCEDURE: MR ANGIO HEAD WO CON CLINICAL INDICATION: eval of posterior circulation Migraine headache with dizziness and blurred vision COMPARISON: MR MR HEAD/BRAIN WO/W CON from 04/29/2021 TECHNIQUE: Thin-section 3D [id number] images obtained with multi slab reformats. FINDINGS: The vertebral arteries and basilar artery has an unremarkable appearance. Posterior cerebral some have an unremarkable appearance. There does appear to be a small aneurysm projecting medially from the clinoid portion of the right internal carotid artery measuring approximately 3 mm this is best demonstrated on series 3, image 83 and series 8, image 5. CT angiography suggested for confirmation. The anterior communicating arteries and posterior communicating arteries have an unremarkable appearance. Carotid bifurcations and middle cerebral arteries are unremarkable. Single-shot MRV shows unremarkable appearing sagittal sinus. 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 angiography suggested for confirmation. Dictated by: Bradley Benjamin MD 06/04/2021 18:05 Bradley Benjamin MD in [facility] 06/04/2021 18:05
== END ==
PROVIDERS: PCP Family Medicine; Visit Provider Nurse Practitioner Family
DX: R42 Dizziness and giddiness (principal); R51.9 Headache, unspecified; M54.2 Cervicalgia; M62.89 Other specified disorders of muscle
CPT/HCPCS: 70544

== ENCOUNTER → 2021-06-05 11:15 | Outpatient (CLI) | payer OTHER, SELFPAY ==
--- NOTE | 2021-06-05 11:33 | CT_ITS ---
Procedure: CT ANGIO HEAD CLINICAL HISTORY: abn MRA Head, eval for R internal carotid aneurysm Headache and dizziness COMPARISON: MR MR ANGIO HEAD WO CON from 06/04/[address] ANGIO HEAD from 06/05/2021 TECHNIQUE: IV Contrast: 100ml Isovue 370 Axial images obtained with sagittal and coronal reformats. All CT scans at the facility use one or more dose reduction, viz: automated exposure control, ma/kV adjustment per patient size (including targeted exams where dose is matched to indication, i.e. head), or iterative reconstruction technique. FINDINGS: There is a small 2 x 2 mm aneurysm projecting off the medial aspect of the clinoid portion of the right internal carotid artery corresponding to the MRI abnormality. This points medially. No major intracranial occlusive process or AVM apparent. No evidence of venous thrombosis. No enhancing lesions. IMPRESSION: 2 mm aneurysm projecting off the medial aspect of the clinoid portion of the right ICA corresponding to the MRI abnormality. Dictated by: Bradley Benjamin MD 06/05/2021 14:45 Bradley Benjamin MD in [facility] 06/05/2021 14:45
== END ==
PROVIDERS: PCP Family Medicine; Visit Provider Nurse Practitioner Family
DX: I67.1 Cerebral aneurysm, nonruptured (principal); R42 Dizziness and giddiness; R51.9 Headache, unspecified; M54.2 Cervicalgia; R93.0 Abnormal findings on diagnostic imaging of skull and head, not elsewhere classified
CPT/HCPCS: 70496; Q9967

== ENCOUNTER → 2021-06-27 07:56 | Day surgery (SDC) | payer OTHER, SELFPAY ==
[2021-06-27 08:02] VITALS: BP 114/75; PULSE 85; RESP 18; TEMP 36.1; O2SAT 99; BMI 31.4
[2021-06-27 08:27] VITALS: BP 137/92; PULSE 74; RESP 18; O2SAT 97
[2021-06-27 08:28] VITALS: BP 130/92; PULSE 75; RESP 18; O2SAT 98
--- NOTE | 2021-06-27 08:58 | P.PCN_ITS ---
- Procedure Date: 06/27/21 Time: 08:58 Anesthesiologist:: Ramo Brownlee MD Complications:: None Pre-procedure Diagnosis:: Headaches Post-procedure Diagnosis:: Same Indications for Procedure:: Patient is a pleasant 46-year-old white female who was referred to us for diagnostic lumbar puncture. She is having headaches. She does have a aneurysm. We are getting opening and closing pressures and CSF to rule out pseudotumor cerebri. Procedure Details:: Lumbar puncture Informed consent was obtained the risk and benefits of the procedure were explained to the patient. Patient was taken the procedure and placed in left lateral cubitus position. She was prepped and draped in sterile fashion. The skin and subcutaneous tissues were anesthetized using lidocaine. I placed a 20- gauge spinal needle into the L4-L5 interspace and advanced until clear CSF obtained. After this opening pressures were found to be 14 cm of water. We placed approximately 18 mL of clear CSF into a total of 4 tubes. There is approximately 4 mL in each tube. Closing pressures were found to be 8 cm of water. The needle was removed Band-Aid was placed the patient was taken roseann very in stable condition. She tolerated the procedure well with no complications. Plan and Disposition:: We have sent these numbers over to Dr. Mcintosh. We will follow-up with her on a as needed basis. I did give her conservative treatment recommendations to prevent post dural puncture headache. If she does get a post dural puncture headache we will plan on lumbar epidural blood patch.
[2021-06-27 09:06] VITALS: BP 123/79; PULSE 76; RESP 20; O2SAT 98
[2021-06-27 09:22] LABS: Glucose,CSF 70 mg/dl (40-70)
[2021-06-27 09:42] LABS: Appearance,CSF Clear (Clear)
[2021-06-27 09:43] LABS: Red Blood Cell,CSF 63 cells/uL (0)
[2021-06-27 09:44] LABS: White Blood Cell,CSF 25 cells/uL (0-5)
[2021-06-27 09:46] LABS: Appearance,CSF Clear (Clear)
[2021-06-27 09:47] LABS: Red Blood Cell,CSF 202 cells/uL (0); Volume,CSF 13 mL; White Blood Cell,CSF 106 cells/uL (0-5)
[2021-06-27 10:44] LABS: Volume,CSF 17.5 mL
[2021-06-27 10:48] LABS: Mononuclear WBCs,CSF 100 %; Polynuclear WBCs,CSF 0 %
[2021-06-27 10:50] LABS: Mononuclear WBCs,CSF 100 %; Polynuclear WBCs,CSF 0 %
== END ==
PROVIDERS: Specialist; PCP Family Medicine; Visit Provider Anesthesiology
DX: R51.9 Headache, unspecified (principal); I10 Essential (primary) hypertension; K21.9 Gastro-esophageal reflux disease without esophagitis; F41.9 Anxiety disorder, unspecified; F32.9 Major depressive disorder, single episode, unspecified; Z88.6 Allergy status to analgesic agent; Z88.8 Allergy status to other drugs, medicaments and biological substances
CPT/HCPCS: 62272; 82945; 84155; 87205; 89051

== ENCOUNTER → 2021-07-07 14:22 | Outpatient (CLI) | payer OTHER, SELFPAY ==
[2021-07-07 15:22] LABS: C-Reactive Protein 4.5 mg/L (0-4)
[2021-07-07 15:51] LABS: Erythrocyte Sedimentation Rate 15 mm/hr (0-20)
[2021-07-09 07:13] LABS: HIV Screen 4th Generation wRfx Non Reactive (Non Reactive)
[2021-07-09 11:13] LABS: Homocyst(e)ine 11.6 umol/L (0.0-14.5); Rapid Plasma Reagin Ab Titer Non Reactive (NonRea<1:1)
[2021-07-12 00:08] LABS: QuantiFERON-TB Gold Plus Negative (Negative)
[2021-07-16 16:12] LABS: Methylmalonic Acid 79 nmol/L (0-378)
== END ==
PROVIDERS: Visit Provider Nurse Practitioner Family
DX: G03.0 Nonpyogenic meningitis (principal); E53.8 Deficiency of other specified B group vitamins; Z11.4 Encounter for screening for human immunodeficiency virus [HIV]; Z11.1 Encounter for screening for respiratory tuberculosis
CPT/HCPCS: 36415; 82131; 83090; 85651; 86140; 86480; 86592; 86703; G0432

== ENCOUNTER → 2021-08-15 09:51 | Outpatient (CLI) | payer OTHER, SELFPAY ==
--- NOTE | 2021-08-15 09:51 | MR_ITS ---
PROCEDURE INFORMATION: Exam: MR Head Without and With Contrast Exam date and time: 08/15/2021 9:51 AM Age: 46 years old Clinical indication: Pain; Headache; Additional info: Headaches. Chronic aseptic meningitis. HX aneursym. Headache [id number]. Dizziness and blurred vision. Prior mr04-29-21 TECHNIQUE: Imaging protocol: MR of the head without and with intravenous contrast. Contrast material: PROHANCE; Contrast volume: 17 ml; Contrast route: IV; COMPARISON: MR HEAD/BRAIN WO/W CON 04/29/2021 4:13 PM FINDINGS: Brain: No bleed, mass, or shift of structures. Basilar cisterns are normal. No diffusion restricted segments. Pre-pontine region, suprasellar region, and cerebellar angles are normal. Cerebral ventricles: Normal. No ventriculomegaly. Pituitary gland and sella: Sella normal. Bones/joints: Clivus normal. Calvarium is normal marrow signal. Paranasal sinuses: Normal as visualized. No acute sinusitis. Mastoid air cells: Normal as visualized. No mastoid effusion. Orbital cavity: Unremarkable. Soft tissues: Soft tissues are unremarkable Other findings: Diploe is normal. Tectum normal. No abnormal enhancement. IMPRESSION: Unremarkable MRI of the brain.
== END ==
PROVIDERS: PCP Family Medicine; Visit Provider Specialist
DX: R51.9 Headache, unspecified (principal)
CPT/HCPCS: 70553; A9576

== ENCOUNTER 2021-09-12 14:58 | Day surgery (SDC) | payer OTHER, SELFPAY ==
[2021-09-12 15:14] VITALS: BP 110/73; PULSE 68; RESP 20; TEMP 36.2; O2SAT 98; BMI 30.7
[2021-09-12 15:26] VITALS: BP 123/56; PULSE 62; RESP 18; O2SAT 97
[2021-09-12 15:42] VITALS: BP 134/76; PULSE 63; RESP 18; O2SAT 100
--- NOTE | 2021-09-12 15:51 | P.PCN_ITS ---
- Procedure Date: 09/12/21 Time: 15:51 Anesthesiologist:: Ramo Brownlee MD Complications:: None Pre-procedure Diagnosis:: Aseptic meningitis with headaches Post-procedure Diagnosis:: Same Indications for Procedure:: Patient is a pleasant 46-year-old white female who was referred to us by Dr. Reece with aseptic meningitis and headaches. We have previously done lumbar punctures on her with opening and closing pressures. We will do a repeat lumbar puncture today to obtain opening and closing pressures and fluid for indicated studies. Procedure Details:: Lumbar puncture Informed consent was obtained risk and benefits of the procedure were explained to the patient. Patient was taken the procedure room placed in left lateral cubitus position. She was prepped and draped in sterile fashion. C-arm fluoroscopy was used to view the lumbar spine. The skin and subtenons tissues were anesthetized using lidocaine. A 20-gauge spinal needle was inserted and advanced into the L4-5 interspace until clear CSF was obtained. Opening pressures were taken and found to be 11 cm of water. We then obtained 2 to 3 mL of clear CSF placed into each of 4 tubes. We withdrew approximately a total of 10 mL of clear CSF placed into a total of 4 tubes. Closing pressures were 8 cm of water. The needle was withdrawn a Band-Aid was placed. Patient tolerated pr ocedure well with no complications. Plan and Disposition:: We will follow-up with this patient as needed. If she has any problems or questions she is to call us back in the pain clinic.
[2021-09-12 15:54] VITALS: BP 118/69; PULSE 61; RESP 20; O2SAT 98
[2021-09-12 17:37] LABS: Appearance,CSF Clear (Clear); Volume,CSF 11.5 mL
[2021-09-12 17:52] LABS: Glucose,CSF 70 mg/dl (40-70)
[2021-09-12 20:38] LABS: Mononuclear WBCs,CSF 100 %; Polynuclear WBCs,CSF 0 %; Red Blood Cell,CSF 1 cells/uL (0); White Blood Cell,CSF 2 cells/uL (0-5)
[2021-09-16 14:50] LABS: Albumin 4.7 g/dL (3.8-4.8); Albumin, CSF 36 mg/dL (8-37); CSF IgG Index 0.5 (0.0-0.7); CSF/Serum Alb. Index 8 (0-8); IgG, Syn Rate, CSF -2.3 mg/day (-9.9 TO +3.3); IgG/Albumin Ratio, CSF 0.11 (0.00-0.25); Immunoglobulin G, Qn, Serum 1079 mg/dL (586-1602)
[2021-11-20 13:01] LABS: Oligoclonal Banding 0
== END 2021-09-12 15:55 | disposition home or self-care (01) ==
LOC: SC.PAINP 15:00
PROVIDERS: PCP Family Medicine; Visit Provider Anesthesiology
DX: G03.0 Nonpyogenic meningitis (principal); I25.2 Old myocardial infarction; E78.5 Hyperlipidemia, unspecified; I10 Essential (primary) hypertension; M79.18 Myalgia, other site; E11.9 Type 2 diabetes mellitus without complications; J45.909 Unspecified asthma, uncomplicated; G43.909 Migraine, unspecified, not intractable, without status migrainosus
CPT/HCPCS: 62329; 82040; 82042; 82784; 82945; 83916; 84155; 87070; 87205; 89051

== ENCOUNTER 2021-09-26 21:41 | Emergency (ER) | payer OTHER, SELFPAY ==
[2021-09-26 21:41] VITALS: BP 105/60; PULSE 69; RESP 18; TEMP 36.8; O2SAT 98; BMI 29.9
[2021-09-26 22:00] VITALS: BP 97/59; PULSE 62; O2SAT 97
--- NOTE | 2021-09-26 22:05 | XR_ITS ---
PROCEDURE INFORMATION: Exam: XR Chest Exam date and time: 09/26/2021 10:05 PM Age: 46 years old Clinical indication: Other: Upper back pain and spasm TECHNIQUE: Imaging protocol: XR of the chest. Views: 2 views. COMPARISON: CR XR CHEST PORTABLE 10/29/2020 9:10 PM FINDINGS: Tubes, catheters and devices: Surgical clips overlie the gallbladder fossa. Lungs: Unremarkable. No consolidation. Pleural spaces: Unremarkable. No pleural effusion. No pneumothorax. Heart/Mediastinum: Unremarkable. No cardiomegaly. Bones/joints: Unremarkable. IMPRESSION: No acute findings.
--- NOTE | 2021-09-26 22:14 | XR_ITS ---
PROCEDURE INFORMATION: Exam: XR Thoracic Spine Exam date and time: 09/26/2021 10:14 PM Age: 46 years old Clinical indication: Pain in thoracic spine; With radiculopathy; Left; Additional info: Pain and spasm upper back TECHNIQUE: Imaging protocol: XR of the thoracic spine. Views: 3 views. COMPARISON: CR XR MULTIPLE SPINE 6+V 01/28/2021 4:24 PM FINDINGS: Bones/joints: Normal. No acute fracture. Normal alignment. Soft tissues: Surgical clips overlie the gallbladder fossa. IMPRESSION: No acute findings.
--- NOTE | 2021-09-26 22:14 | XR_ITS ---
PROCEDURE INFORMATION: Exam: XR Lumbosacral Spine Exam date and time: 09/26/2021 10:14 PM Age: 46 years old Clinical indication: Other: Mid and lower back pain and spasm TECHNIQUE: Imaging protocol: XR of the lumbosacral spine. Views: 4 or 5 views. COMPARISON: CR XR MULTIPLE SPINE 6+V 01/28/2021 4:24 PM FINDINGS: Bones/joints: Mild loss of intervertebral disc space with degenerative changes at L5-S1. Vertebral bodies are normal in height and alignment. Soft tissues: Surgical clips overlie the gallbladder fossa. IMPRESSION: No acute findings.
[2021-09-26 22:26] LABS: Basophils # 0.1 K/mm3 (0-0.2); Basophils % 1.5 % (0.1-2.0); Eosinophils # 0.3 K/mm3 (0.0-0.4); Hematocrit 36.3 % (37.0-47.0); Hemoglobin 11.8 g/dL (12.2-16.2); Lymphocytes # 2.6 K/mm3 (0.7-4.5); Lymphocytes % 34.3 % (10-50); Mean Corpuscular HGB Conc 32.5 g/dL (31.8-35.4); Mean Platelet Volume 7.8 fl (7.4-10.4); Monocytes # 0.6 K/mm3 (0.1-1.0); Monocytes % 7.2 % (1.7-9.3); Neutrophils # 4.1 K/mm3 (1.8-7.8); Platelet Count 340 K/mm3 (142-424); Red Blood Count 4.54 M/mm3 (4.20-5.40); Red Cell Distribution Width 15.7 % (11.5-17.5); White Blood Count 7.7 K/mm3 (4.8-10.8)
[2021-09-26 22:39] LABS: Alanine Aminotransferase 47 U/L (12-78); Albumin Level 4.3 g/dl (3.5-5.0); Albumin/Globulin Ratio 1.7 (1.1-1.8); Alkaline Phosphatase 64 U/L (38-126); Anion Gap 9.8 mEq/L (5-15); Aspartate Amino Transferase 67 U/L (14-36); Bilirubin,Total 0.4 mg/dl (0.2-1.3); Blood Urea Nitrogen 11 mg/dl (7-17); Calcium 9.1 mg/dl (8.4-10.2); Carbon Dioxide 25 mmol/L (22.0-30.0); Chloride 105 mmol/L (98-107); Creatinine Clearance Estimated 120 mL/min (50-200); Estimated Glomerular Filt Rate 78 ml/min (>60); GFR (African American) 94 ML/MIN (>60); Globulin 2.5 g/dL (1.3-3.2); Glucose 95 mg/dl (74-100); Potassium 3.8 mmoL/L (3.5-5.1); Sodium 136 mmol/L (136-145); Total Protein,Serum 6.8 g/dl (6.3-8.2)
[2021-09-26 22:45] VITALS: BP 105/60; PULSE 53; O2SAT 95
[2021-09-26 22:54] LABS: Erythrocyte Sedimentation Rate 15 mm/hr (0-20)
[2021-09-26 22:56] LABS: Procalcitonin 0.081 ng/mL (0.0-2.0)
[2021-09-26 23:00] VITALS: BP 108/63; PULSE 52; O2SAT 98
--- NOTE | 2021-09-26 23:12 | HMH.EDBACK ---
ED Disposition Clinical Impression: Acute thoracic myofascial strain Qualifiers: Encounter type: initial encounter Qualified Code(s): S29.019A - Strain of muscle and tendon of unspecified wall of thorax, initial encounter Disposition: Home, Self-Care Condition on Discharge: Good Instructions: DI for Thoracic Back Pain Additional Instructions: use meds and see pcp for follow up Prescriptions: predniSONE [Prednisone 20mg Tab] 20 mg PO BID #10 tab Transmission Status: Pending to [facility] Ketorolac Tromethamine [Toradol 10mg tablet] 10 mg PO Q6HP PRN #7 tab MDD 40mg/day PRN Reason: Moderate To Severe Pain Transmission Status: Pending to [facility] Referrals: Jerry Malcolm MD [Primary Care Provider] - - Critical Care Critical Care Time: No Attestation: On 09/26/21, the high probability of a clinically significant, sudden or life threatening deterioration of the following system(s) required my full and direct attention, intervention and personal management. The time I documented below is in addition to time spent performing reported procedures but includes the following listed in this critical care notation. Medical Decision Making - Medical Records Medical records reviewed: Yes: I reviewed the patient's medical records. - Tim Inquiry Pt receiving controlled substance: No Vital Signs: 09/26/21 21:41 09/26/21 22:00 09/26/21 22:45 Temperature 98.2 F Temperature Source Oral Pulse Rate 62 53 L Pulse Rate [Left] 69 Respiratory Rate 18 Blood Pressure 97/59 L 105/60 L Blood Pressure [Right Arm] 105/60 L Blood Pressure Mean [Right Arm] 75 02 Sat by Pulse Oximetry 98 97 95 Oxygen Delivery Method Room Air Room Air 09/26/21 23:00 Temperature Temperature Source Pulse Rate 52 L Pulse Rate [Left] Respiratory Rate Blood Pressure 108/63 L Blood Pressure [Right Arm] Blood Pressure Mean [Right Arm] 02 Sat by Pulse Oximetry 98 Oxygen Delivery Method Room Air - Lab Data Lab results reviewed: Yes: I reviewed the patient's lab results. Lab Results 09/26/21 21:47: Urine Color Yellow, Urine Appearance Cloudy, Urine pH 5.5, Ur Specific [place] >= 1.030, Urine Protein Negative, Urine Glucose (UA) Negative, Urine Ketones Negative, Urine Blood Negative, Urine Nitrate Negative, Urine Bilirubin Negative, Urine Urobilinogen 0.2, Ur Leukocyte Esterase Negative, Amorphous Sediment 4+ 09/26/21 22:15: WBC 7.7, RBC 4.54, Hgb 11.8 L, Hct 36.3 L, MCV 80.0 L, MCH 26.0 L, MCHC 32.5, RDW 15.7, Plt Count 340, MPV 7.8, Neut % (Auto) 53.0, Lymph % (Auto) 34.3, Kay % (Auto) 7.2, Eos % (Auto) 4.0, Baso % (Auto) 1.5, Neut # (Auto) 4.1, Lymph # (Auto) 2.6, Kay # (Auto) 0.6, Eos # (Auto) 0.3, Baso # (Auto) 0.1, ESR 15 09/26/21 22:15: Sodium 136, Potassium 3.8, Chloride 105, Carbon Dioxide 25, Anion Gap 9.8, BUN 11, Creatinine 0.80, Estimated Creat Clear 120, Estimated GFR 78, Est GFR ( Amer) 94, Glucose 95, Calcium 9.1, Total Bilirubin 0.4, AST 67 H, ALT 47, Alkaline Phosphatase 64, Total Protein 6.8, Albumin 4.3, Globulin 2.5, Albumin/Globulin Ratio 1.7, Procalcitonin 0.081 Result diagrams: 09/26/21 22:15 09/26/21 22:15 Orders (Tests/Meds): ED MEDICATIONS Discontinued Medications Generic Name Dose Route Start Last Admin Trade Name Freq PRN Reason Stop Dose Admin Sodium Chloride 1,000 mls @ 999 mls/hr 09/26/21 22:15 09/26/21 22:19 Sod Chlor 0.9% 1000ml Bag IV 09/26/21 23:15 999 mls/hr .Q1H1M DINAH Administration Orphenadrine Citrate 60 mg 09/26/21 23:28 09/26/21 23:31 Orphenadrine Citrate 60mg/2ml Vial IV 09/26/21 23:29 60 mg ONCE ONE Administration Medical Decision Narrative: pt has hx of mm pain and has chronic issues - will treat as inflammatory and call pcp for follow up Back Pain HPI - General Chief Complaint: Back Pain/Injury Stated Complaint: back muscle spams Time Seen by Provider: 09/26/21 23:12 Mode of Arrival: Family Vehic
[2021-09-26 23:26] LABS: Microscopic, Urine URINE MICROSCOPIC (MICROSCOPIC)
[2021-09-26 23:29] LABS: Appearance,Urine CLOUDY (Clear); Bilirubin,Urine Negative (Negative); Blood, Urine Negative (Negative); Color,Urine YELLOW (Yellow); Glucose,Urine (UA) Negative (Negative); Ketones,Urine Negative (Negative); Leukocyte Esterase,Urine Negative (Negative); Nitrate,Urine Negative (Negative); PH,Urine 5.5 (5.0-8.5); Protein,Urine Negative (Negative); Specific Gravity, Urine >= 1.030 (1.005-1.030); Urobilinogen,Urine 0.2 EU/dl (0.2)
--- NOTE | 2021-09-26 23:29 | PC.NURSE ---
spoke with Gladys @ [facility] for norflex dosage
[2021-09-26 23:31] LABS: Amorphous Sediment,Urine 4+ /lpf
[2021-09-27 00:05] VITALS: BP 108/63; PULSE 52; RESP 16; TEMP 36.7; O2SAT 98
== END 2021-09-27 00:10 | disposition home or self-care (01) ==
PROVIDERS: Emergency Provider Emergency Medicine; PCP Family Medicine
DX: S29.019A Strain of muscle and tendon of unspecified wall of thorax, initial encounter (principal); I10 Essential (primary) hypertension; I25.2 Old myocardial infarction; E78.5 Hyperlipidemia, unspecified
CPT/HCPCS: 71046; 72072; 72110; 80053; 81001; 84145; 85025; 85651; 99283

== ENCOUNTER → 2021-12-01 17:36 | Outpatient (CLI) | payer OTHER, SELFPAY ==
[2021-12-01 17:54] VITALS: BMI 25.8
== END ==
PROVIDERS: Visit Provider Nurse Practitioner
DX: Z20.822 Contact with and (suspected) exposure to COVID-19 (principal)
CPT/HCPCS: C9803; U0003; U0005

== ENCOUNTER → 2022-05-01 14:42 | Outpatient (CLI) | payer OTHER, SELFPAY ==
--- NOTE | 2022-05-01 14:43 | CA_ITS ---
APPROVED REPORT EXAM: Comprehensive 2D, Doppler, and color-flow Echocardiogram Reference Investigator: Leatha Schwartz RVT Ht: 5 ft 6 in Wt: 190lbs BSA: 1.96 BP: 134/86 mmHg Indications: CP,HTN,HLD,SOA,HX NE,DIZZINESS 2D Dimensions LVOT 2.07 cm (M/F) 1.5-2.5 LA Volume 30.60 mL LA Volume Index 15.69 mL/m2 (M/F) 16-34 M-Mode Dimensions RVDd 2.53 cm (0.9-2.6) LA Diam 3.75 cm (1.9-4.0) LVDd 5.46 cm (3.5-5.7) Ao Diam 2.56 cm (2.0-3.7) LVDs 4.01 cm (3.5-5.7) IVSd 0.60 cm (0.6-1.1) PWd 0.76 cm (0.6-1.1) EF (Teich) 51.40% FS 26.60% EDV (Teich) 145.00 mL TAPSE 2.29 (<1.7) ESV (Teich) 70.40 mL LV Diastology E Decel Time 163.00 (160-240 msec) E/A Ratio 1.3 MED E' 11.30 (< 7 cm/sec) E'/MED E' Ratio 8.56 (>14) LAT E' 10.50 (<10 cm/sec) E/LAT E' Ratio 9.21 (>14) Aortic Valve AO Peak GR. 4.80 mmHg Mitral Valve MV E Max Ugo. 97.00 (40-130 cm/s) MV A Velocity 73.00 (40-130 cm/s) E/A Ratio 1.33 MV Decel. Time 163.00 (160-240 ms) MV PHT 48.00 ms Pulmonary Valve PV Peak Velocity 63.00 (50-150 cm/s) Tricuspid Valve TR P. Velocity 227.00 cm/s RAP Estimate 10.00 mmHg RVSP 30.70 mmHg Left Ventricle Left atrium is normal size, left ventricle is normal size, there is no concentric left ventricular hypertrophy, estimated ejection fraction 55% with no regional wall motion abnormality, diastolic parameters are within normal range. Right Ventricle Right atrium and right ventricle are normal size and contractility. Aortic Valve Aortic valve is grossly normal, there is no aortic stenosis aortic insufficiency. Mitral Valve Mitral valve grossly normal, there is trace mitral regurgitation. Tricuspid Valve Tricuspid grossly normal, there is trace tricuspid regurgitation, tricuspid regurgitation jet velocity is inadequate for calculation of the right ventricular systolic pressure. Pulmonic Valve Pulmonic valve is poorly visualized. Great Vessels Aortic root is normal size. Inferior vena cava is poorly visualized. Pericardium No significant pericardial effusion noted. Conclusion 1. Normal left ventricular size, preserved left ventricular systolic function, estimated ejection fraction 55% with no regional wall motion abnormality, diastolic parameters are within normal range. 2. Trace mitral and tricuspid regurgitation. 3. No significant pericardial effusion or thickening . 4. Inferior vena cava is poorly visualized. Electronically signed by : Broderick Owen MD 05/01/2022 15:37:55
== END ==
PROVIDERS: PCP Family Medicine; Visit Provider Physician Assistant
DX: R06.09 Other forms of dyspnea (principal); R07.89 Other chest pain; R42 Dizziness and giddiness; I21.9 Acute myocardial infarction, unspecified
CPT/HCPCS: 93306

== ENCOUNTER 2022-07-07 07:19 | Day surgery (SDC) | payer OTHER, SELFPAY ==
[2022-07-07 07:58] VITALS: BP 140/76; PULSE 74; RESP 20; TEMP 36.6; O2SAT 100; BMI 30.7
[2022-07-07 08:29] VITALS: BP 125/67; PULSE 62; RESP 18; O2SAT 98
[2022-07-07 08:33] VITALS: BP 125/57; PULSE 68; RESP 18; O2SAT 98
--- NOTE | 2022-07-07 08:54 | P.PCN_ITS ---
Procedure Date: 07/07/22 Time: 08:15 Anesthesiologist:: Melchor Martinez CRNA Complications:: None Pre-procedure Diagnosis:: Cerebral aneurysm repair. Chronic headaches. Post-procedure Diagnosis:: Same. Indications for Procedure:: Very pleasant 47-year-old female that comes our clinic today for repeat spinal tap for CSF analysis and pressure check. Patient had the procedure 2 times before. Patient continue to have chronic headaches post surgery. Blurred vision. Procedure Details:: Details of the procedure were explained to the patient. The patient taken to procedure room placed in the left lateral position. The area over the lumbar spine was cleaned using chlorhexidine as a cleansing solution. Using fluoroscopy guidance a marker was placed over the L3-4 intervertebral space. The skin and subcutaneous tissue was anesthetized using 1% lidocaine and 25- gauge needle. At this time under fluoroscopy guidance in the AP position a 22- gauge 3-1/2 inch spinal needle was used to access the intrathecal space. Initial CSF pressure was 18. A total of 12 cc of spinal fluid was drained in 4 separate vials. Closing pressure was 11. Patient tolerated the procedure without difficulty. Needle was removed. Band-Aid applied. Plan and Disposition:: Patient was instructed to be supine for the next 4 to 6 hours if possible. This would help prevention of posterior puncture headache. She was discharged from the clinic without incident.
[2022-07-07 08:59] VITALS: BP 122/69; PULSE 68; RESP 20
[2022-07-07 11:09] LABS: Appearance,CSF Clear (Clear); Red Blood Cell,CSF 3 cells/uL (0); Volume,CSF 7.5 mL; White Blood Cell,CSF 2 cells/uL (0-5)
[2022-07-07 11:10] LABS: Appearance,CSF Clear (Clear); Red Blood Cell,CSF 23 cells/uL (0); Volume,CSF 7.5 mL; White Blood Cell,CSF 2 cells/uL (0-5)
[2022-07-07 12:08] LABS: Glucose,CSF 72 mg/dl (40-70)
[2022-07-09 17:27] LABS: CAP Mandated Reflex to Culture Not Indicated (.); Cryptococcus Antigen, CSF Negative (Negative); VDRL, Cerebrospinal Fluid Non Reactive (Non Rea:<1:1)
[2022-07-10 15:09] LABS: Albumin 4.5 g/dL (3.8-4.8); Albumin, CSF 36 mg/dL (8-37); CSF IgG Index 0.6 (0.0-0.7); CSF/Serum Alb. Index 8 (0-8); IgG, Quant, CSF 4.8 mg/dL (0.0-6.7); IgG, Syn Rate, CSF 3.4 mg/day (-9.9 TO +3.3); IgG/Albumin Ratio, CSF 0.13 (0.00-0.25); Immunoglobulin G, Qn, Serum 962 mg/dL (586-1602)
[2022-07-11 13:13] LABS: CSF Lyme (B. burgdorferi) PCR Negative (Negative)
[2022-07-13 16:11] LABS: CEA, Fluid <0.3 ng/mL (Not Estab.)
== END 2022-07-07 09:00 | disposition home or self-care (01) ==
PROVIDERS: Specialist; PCP Family Medicine; Visit Provider Nurse Anesthetist, Certified Registered
DX: R51.9 Headache, unspecified (principal); Z86.79 Personal history of other diseases of the circulatory system
CPT/HCPCS: 36415; 62328; 82040; 82042; 82378; 82784; 82945; 83916; 84155; 86592; 87070; 87102; 87116; 87205; 87206; 87210; 87252; 87476; 87899; 89051

== ENCOUNTER → 2022-07-08 11:28 | Outpatient (POV) | payer OTHER, SELFPAY ==
[2022-07-08 12:20] VITALS: BP 142/95; PULSE 82; RESP 18; TEMP 36.6; O2SAT 99; BMI 31.1
--- NOTE | 2022-07-08 12:24 | EXP.PAIN.SOA ---
[facility] Pain Management SOAP Note Subjective:: Patient is a pleasant 47-year-old who presents today for follow-up of lumbar puncture on 07/07/2022. We are currently treating the patient for chronic headaches, cerebral aneurysm repair. Patient rates her pain a 10 out of 10. She states yesterday following the lumbar puncture she did go home and lay flat on her back for several hours. She stated last night she had a very small headache and did fine. Patient states around 10:00 this morning she started having excruciating headaches. Patient has tried multiple caffeinated drinks including elevate with no relief of symptoms. She has also tried Excedrin Migraine and ibuprofen 800 mg with no change in her symptoms. Patient states this is a debilitating pressure all over her head that is constant. Patient has tried to lay down with no relief whatsoever. Review of Systems: General: No recent weight changes, no fever, no sleep disturbances Respiratory: No cough, no shortness of air, no recurring pulmonary infections Cardiovascular/peripheral vascular: No chest pain, no palpitations, no edema, no shortness of breath Gastrointestinal: No new onset incontinence, normal bowel movements reported Genitourinary: No new onset incontinence Musculoskeletal: Headache Psychiatric: [Normal mood/affect] Neurological: [Denies weakness in extremities], [denies balance issues] Objective:: Physical Exam: General: Alert and oriented x3,acute distress, pleasant and cooperative Lungs: Respirations even and unlabored, symmetrical chest expansion Eyes: PERRL Musculoskeletal: Flexion and extension of [cervical] [spine] somewhat guarded secondary to pain, [antalgic gait noted] Neurological: Speech clear, no gross sensory deficit Assessment:: Chronic headache, cerebral aneurysm repair history Plan:: Patient is experiencing debilitating headaches following a lumbar puncture yesterday. I have discussed with the patient regarding a blood patch. We will consult anesthesia to see how quickly that they are not able to do this procedure. We will plan on following up with the patient following a blood patch for reevaluation of symptoms. Anesthesia was unable to get to the patient at this time due to being in an operating room procedure. Patient has been sent to the ER for immediate evaluation of her symptoms. We will continue to follow-up following this episode. Patient has been instructed to contact the clinic with any concerns before the next appointment. Dr. Brownlee has reviewed this note and agrees with this plan of care. This note was dictated using voice recognition software and make contain errors or omissions. [facility] Medical History (Updated 07/07/22 @ 08:10 by Bianca Christiansen RN) Chest pain Depression Dizziness Dyspnea HLD (hyperlipidemia) HTN (hypertension) Myocardial infarct Surgical History (Updated 07/07/22 @ 08:10 by Bianca Christiansen RN) H/O cerebral aneurysm repair H/O tubal ligation History of arthroscopy of right shoulder Hx of cholecystectomy Family History (Updated 07/07/22 @ 08:10 by Bianca Christiansen RN) Other No significant family history Social History (Updated 07/07/22 @ 08:10 by Bianca Christiansen RN) Smoking Status: Never smoker alcohol intake: never substance use type: denies use current occupational status: employed Travel in the last 8 weeks: None household members: significant other and children housing: house lives independently: Yes marital status: education level: other current occupational exposures/hazards: No caffeine: Yes do you feel safe at home: Yes victim of physical abuse: No victim of emotional abuse: No victim of sexual abuse: No
== END ==
PROVIDERS: Visit Provider Nurse Practitioner Family
DX: R51.9 Headache, unspecified (principal); Z86.79 Personal history of other diseases of the circulatory system
CPT/HCPCS: 99212; G0463

== ENCOUNTER 2022-07-08 12:14 | Emergency (ER) | payer OTHER, SELFPAY ==
[2022-07-08] VITALS (9 sets, daily range): BP systolic 124–188; BP diastolic 72–97; PULSE 56–82; RESP 16–20; TEMP 36.7–36.8; O2SAT 94–100; BMI 30.7
--- NOTE | 2022-07-08 12:25 | PC.NURSE ---
ANESTHESIA NOTIFIED THAT PT IS HERE IN ED, SUSANA SWENSON CRNA STATES HE IS IN A CASE AND HE WILL SEE HER SOON POSSIBLE
--- NOTE | 2022-07-08 12:32 | PC.NURSE ---
ED MD AT BEDSIDE FOR EVALUATION
--- NOTE | 2022-07-08 12:34 | HMH.EDHA ---
Discharge Plan Disposition Patient Disposition: Home, Self-Care Condition: Fair Chief Complaint: Headache Prescriptions Prescriptions: No Action aspirin 81 mg tablet,delayed release (DR/EC) 81 mg PO DAILY atorvastatin 40 mg tablet 40 mg PO DAILY metoprolol succinate 25 mg tablet extended release 24 hr 25 mg PO DAILY albuterol sulfate [ProAir HFA] 90 mcg/actuation HFA aerosol inhaler 2 puff INHALATION BIDP PRN (Reason: SOB) Nurtec ODT 75 mg tablet,disintegrating 75 mg PO .qod Qty: 16 11RF lisinopril 10 mg tablet 20 mg PO DAILY methocarbamol 500 mg tablet 500 mg PO TID montelukast [Singulair] 10 mg tablet 10 mg PO DAILY amlodipine [Norvasc] 2.5 mg tablet 2.5 mg PO DAILY Referrals Follow up/Referrals: Billie De MD [Primary Care Provider] - See instructions Activity Restrictions/Add. Instructions Additional Instructions/Restrictions: Follow-up with your primary care doctor in about 2 to 3 days if not better. Return to the emergency department immediately if you develop a fever or get worse in any way. Continue taking all medications as prescribed. Keep all follow-up appointments as scheduled. Clinical Impressions Clinical Impression: Headache Discharge ED Provider: Sheri Trinh Headache HPI General Chief Complaint: Headache Stated Complaint: Spinal BRITO, Pain MGT referral Time Seen by Provider: 07/08/22 12:37 Mode of Arrival: Ambulatory Limitations: No Limitations Description of Symptoms (Recalled from ER Triage Doc. by RN): PT REPORTS HEADACHE AFTER LUMBAR PUNCTURE YESTERDAY. HEADACHE STARTED ABOUT 1 HOUR AGO History of Present Illness HPI Narrative: The patient presents to the emergency department complaining of a headache that began approximately 1 to 2 hours ago. The patient had a lumbar puncture performed yesterday to rule out a recurrence of aseptic meningitis. She denies any fevers. She does complain of nausea and vomiting. The headache is exacerbated by upright position. Related Data Home Medications Medication Instructions Recorded Confirmed aspirin 81 mg tablet,delayed 81 mg PO DAILY heart health 09/23/21 07/08/22 release albuterol sulfate 90 mcg/actuation 2 puff inhalation BIDP PRN SOB 01/05/22 07/08/22 aerosol inhaler (ProAir HFA) atorvastatin 40 mg tablet 40 mg PO DAILY Cholesterol 01/05/22 07/08/22 metoprolol succinate 25 mg 25 mg PO DAILY Heartburn 01/05/22 07/08/22 tablet,extended release 24 hr lisinopril 10 mg tablet 20 mg PO DAILY blood pressure 04/20/22 07/08/22 methocarbamol 500 mg tablet 500 mg PO TID muscle spasms 04/20/22 07/08/22 montelukast 10 mg tablet 10 mg PO DAILY allergies 04/20/22 07/08/22 (Singulair) amlodipine 2.5 mg tablet (Norvasc) 2.5 mg PO DAILY blood pressure 07/07/22 07/08/22 Previous Rx's Medication Instructions Recorded Nurtec ODT 75 mg disintegrating 75 mg PO .qod chronic intractable 01/05/22 tablet (rimegepant) headache #16 tabs Allergies Allergy/AdvReac Type Severity Reaction Status Date / Time fentanyl Allergy Severe Anxiety Verified 06/23/22 15:49 From [facility] Allergy Intermediate Muscle Pain Uncoded 08/18/21 14:56 MORPHINE Allergy Mild NERVOUSNESS Uncoded 08/18/21 14:56 [facility] History Hepatitis A Screen Attestation statement:: This patient has been screened for Hepatitis A risk factors. Medical History: Reports: Aneurysm, Hyperlipidemia, Hypertension, Migraine and Myocardial Infarction; Denies: Cancer, Diabetes Mellitus Type 1, Diabetes Mellitus Type 2, Internal Pacemaker, MRSA or Seizures Other Medical History: Reports Arthritis, Blood Transfusion Reaction and Fibromyalgia Laterality Cases: Right: Arthroscopy Shoulder Other Surgeries: No Pacemaker Amputation: No Fractures: No Comment: COILING BRAIN Social History Smoking Status: Never smoker Alcohol Intake: never Alcohol Intake Frequency:: a few times a month Substance Use Type: denies use Occupational Status:
--- NOTE | 2022-07-08 13:33 | PC.NURSE ---
1320 PT ASSISTED TO BR, UPDATED ON POC. PT DENIES NEEDS AT THIS TIME. CALL LIGHT WITHIN REACH
--- NOTE | 2022-07-08 14:03 | PC.NURSE ---
pt ambulated to restroom and gave pt a blanket, no other needs at this time
--- NOTE | 2022-07-08 15:08 | PC.NURSE ---
anesthesia here for blood patch Yaya assisting
--- NOTE | 2022-07-08 15:13 | P.PN_ITS ---
[facility] Medical History Chest pain Depression Dizziness Dyspnea HLD (hyperlipidemia) HTN (hypertension) Myocardial infarct Surgical History H/O cerebral aneurysm repair H/O tubal ligation History of arthroscopy of right shoulder Hx of cholecystectomy Family History (Updated 07/07/22 @ 08:10 by Bianca Christiansen RN) Other No significant family history Social History Smoking Status: Never smoker alcohol intake: never substance use type: denies use current occupational status: employed Travel in the last 8 weeks: None household members: significant other and children housing: house lives independently: Yes marital status: education level: other current occupational exposures/hazards: No caffeine: Yes do you feel safe at home: Yes victim of physical abuse: No victim of emotional abuse: No victim of sexual abuse: No [facility] Anesthesia Checklist Patient Identification Patient Identification: Arm Band Structural Data Admitted From: Emergency Dept Planned Operative Procedure/s: Epidural Blood Patch Consent for Planned Operative Procedure(s) Verified: Yes Verified Documents: Surgical Consent and History and Physical Additional verifications Anesthesia Reactions: No Hx Blood Transfusions: No Blood Transfusion Reaction: Yes Airway Assessment C-Spine Mobility Assessed: Yes TMJ Mobility Assessed: Yes Dentition: Good Dentition Neurological Assessment Level of Consciousness: Awake and Alert Anesthesia Plan Anesthesia Risk discussed: Yes Anesthesia Plan: Verified ASA Class: II Anesthesia Type: Epidural
--- NOTE | 2022-07-08 15:14 | HMH.PROCNOTE ---
[facility] Procedure Note Date: 07/08/22 Time: 15:15 Procedure Note:: Consulted for epidural blood patch for symptoms consistent with post dural puncture headache. Pt states that she gets frequent lumbar punctures and had one yesterday. Today she presents to the ER with severe headache, photophobia, nausea. Risks/benefits of epidural blood patch explained and pt verbalized understanding. Consent obtained. Pt to sitting postion, sterile prep/drape with betadine, 1% Lidocaine skin wheel at L 4/5, 18 G Tuohy needle midline x1, BAYRON with saline at 7 cm. 20 cc of autologous blood drawn from Left AC IV and then slowly injected into epidural space. Pt complains of pressure in hips after 15 cc, so injection stopped, touhy needle withdrawn, and bandaid applied. Pt describes headache as a little better , but does c/o of hip pain now.
--- NOTE | 2022-07-08 15:21 | PC.NURSE ---
1456 SUSANA AT BEDSIDE FROM ANESTHESIA 1501 TIME OUT PERFORMED 1503 PROCEDURE STARTED 1507 BLOOD GIVEN PER ANESTHESIA 1508 PROCEDURE COMPLETE
--- NOTE | 2022-07-08 15:24 | PC.NURSE ---
ANESTHESIA AT BEDSIDE TO REEVALUATE PT
--- NOTE | 2022-07-08 15:29 | PC.NURSE ---
BELÉN FROM PAIN MANAGEMENT NOTIFIED THAT PT CONTINUES TO HAVE PAIN. INSTRUCTED TO CONTACT DR. CANAS
--- NOTE | 2022-07-08 15:32 | PC.NURSE ---
LEFT MESSAGE WITH DR. CANAS'S OFFICE
== END 2022-07-08 16:00 | disposition home or self-care (01) ==
PROVIDERS: Emergency Provider Emergency Medicine; PCP Family Medicine
DX: G43.909 Migraine, unspecified, not intractable, without status migrainosus (principal); H53.149 Visual discomfort, unspecified; R07.9 Chest pain, unspecified; R42 Dizziness and giddiness; R11.2 Nausea with vomiting, unspecified; I10 Essential (primary) hypertension; I25.2 Old myocardial infarction; E78.5 Hyperlipidemia, unspecified; F32.A Depression, unspecified; Z79.82 Long term (current) use of aspirin; Z79.51 Long term (current) use of inhaled steroids; Z79.899 Other long term (current) drug therapy; Z88.5 Allergy status to narcotic agent; Z88.8 Allergy status to other drugs, medicaments and biological substances; Z82.49 Family history of ischemic heart disease and other diseases of the circulatory system
CPT/HCPCS: 62270; 96361; 96374; 96375; 96376; 99285; J2405

== ENCOUNTER → 2022-07-14 07:16 | Outpatient (CLI) | payer OTHER, SELFPAY ==
--- NOTE | 2022-07-14 07:36 | MR_ITS ---
FINAL REPORT CLINICAL HISTORY: worsening headaches. HX CHRONIC ASEPTIC MENINGITIS. HEADACHE, DIZZINESS, AND BLURRED VISION. PATIENT HAS ANEURYSM COIL IMPLANTED. COMPARISON: 08/15/2021 FINDINGS: Multiplanar MR imaging of the brain was performed without contrast. There is no evidence of intracranial hemorrhage or mass. The ventricular size is normal. There is no evidence of shift of the midline structures. No abnormal extra-axial fluid collection is identified. The posterior fossa and brainstem have an unremarkable appearance. No area of abnormal restricted diffusion is identified. Normal major vessel vascular flow voids are seen. IMPRESSION: Unremarkable brain with no acute intracranial abnormality. Reviewed, Interpreted and Dictated by Ritchie Avila III, MD Transcribed by Shady Chapman Authenticated and [facility]
== END ==
PROVIDERS: PCP Family Medicine; Visit Provider Nurse Practitioner Family
DX: R51.9 Headache, unspecified (principal); I67.1 Cerebral aneurysm, nonruptured
CPT/HCPCS: 70551

== ENCOUNTER 2022-08-28 18:16 | Emergency (ER) | payer OTHER, SELFPAY ==
[2022-08-28 18:23] VITALS: BP 124/80; PULSE 85; RESP 20; TEMP 37.2; O2SAT 100; BMI 30.7
--- NOTE | 2022-08-28 18:34 | HMH.EDGENADL ---
Discharge Plan Disposition Chief Complaint: Back Pain/Injury Prescriptions Prescriptions: No Action aspirin 81 mg tablet,delayed release (DR/EC) 81 mg PO DAILY atorvastatin 40 mg tablet 40 mg PO DAILY metoprolol succinate 25 mg tablet extended release 24 hr 25 mg PO DAILY albuterol sulfate [ProAir HFA] 90 mcg/actuation HFA aerosol inhaler 2 puff INHALATION BIDP PRN (Reason: SOB) Nurtec ODT 75 mg tablet,disintegrating 75 mg PO .qod Qty: 16 11RF lisinopril 10 mg tablet 20 mg PO DAILY methocarbamol 500 mg tablet 500 mg PO TID montelukast [Singulair] 10 mg tablet 10 mg PO DAILY venlafaxine 75 mg capsule,extended release 24hr 75 mg PO DAILY quetiapine 25 mg tablet 25 mg PO HS Qulipta 60 mg tablet 60 mg PO DAILY Qty: 30 5RF amlodipine [Norvasc] 2.5 mg tablet 2.5 mg PO DAILY Qty: 90 3RF Referrals Follow up/Referrals: Billie De MD [Primary Care Provider] - See instructions Instructions Patient Instructions: DI for Low Back Pain Discharge ED Provider: Higinio Taveras General Adult HPI General Chief complaint: Back Pain/Injury Stated complaint: poss back spasms Time Seen by Provider: 08/28/22 18:25 Mode of Arrival: Ambulatory Source of Information: Patient Limitations: Physical Limitations Description of Symptoms (Recalled from ER Triage Doc. by RN): pt. states she is having right-sided, mid-back muscle spasams that started approx. an hour ago. She states this is an ongoing problem for her. She did take flexiril and she states it is not helping. History of Present Illness HPI narrative: Patient presents complaint of sudden onset of mid right back pain that began approxi-1 hour prior to ED presentation. She describes the pain as severe and worse with positional changes. She states has had this many times over the last 30 years and is caused by muscle spasms. She states she has done some lifting of late including lifting a child. She denies chest pain or shortness of air. Related Data Home Medications Medication Instructions Recorded Confirmed aspirin 81 mg tablet,delayed 81 mg PO DAILY heart health 09/23/21 07/23/22 release albuterol sulfate 90 mcg/actuation 2 puff inhalation BIDP PRN SOB 01/05/22 07/23/22 aerosol inhaler (ProAir HFA) atorvastatin 40 mg tablet 40 mg PO DAILY Cholesterol 01/05/22 07/23/22 metoprolol succinate 25 mg 25 mg PO DAILY Heartburn 01/05/22 07/23/22 tablet,extended release 24 hr lisinopril 10 mg tablet 20 mg PO DAILY blood pressure 04/20/22 07/23/22 methocarbamol 500 mg tablet 500 mg PO TID muscle spasms 04/20/22 07/23/22 montelukast 10 mg tablet 10 mg PO DAILY allergies 04/20/22 07/23/22 (Singulair) quetiapine 25 mg tablet 25 mg PO HS 07/23/22 07/23/22 venlafaxine 75 mg capsule,extended 75 mg PO DAILY 07/23/22 07/23/22 release 24 hr Previous Rx's Medication Instructions Recorded Nurtec ODT 75 mg disintegrating 75 mg PO .qod chronic intractable 01/05/22 tablet (rimegepant) headache #16 tabs Qulipta 60 mg tablet (atogepant) 60 mg PO DAILY episodic migraine 07/23/22 #30 tabs amlodipine 2.5 mg tablet (Norvasc) 2.5 mg PO DAILY blood pressure #90 08/10/22 tabs Allergies Allergy/AdvReac Type Severity Reaction Status Date / Time fentanyl Allergy Severe Anxiety Verified 07/23/22 08:57 ciprofloxacin [From Cipro] Allergy Mild Verified 07/23/22 08:57 morphine Allergy Verified 07/23/22 08:57 PFSH PFSH Medical History Brain aneurysm Chest pain Depression Dizziness Dyspnea History of meningitis HLD (hyperlipidemia) HTN (hypertension) Myocardial infarct Surgical History H/O cerebral aneurysm repair H/O tubal ligation History of arthroscopy of right shoulder Hx of cholecystectomy Family History Other No significant family history
[2022-08-28 20:12] VITALS: BP 119/78; PULSE 80; RESP 20; TEMP 37.1; O2SAT 100
--- NOTE | 2022-08-29 09:33 | PC.NURSE ---
Iesha pharmacist at [facility] pharmacy called, stated they don't have norflex in stock, asked if could change prescription to another muscle relaxer. Asked Dr. Velazquez about this, states Flexeril 10 mg po TID x5 days,repeated and verified, verbal order given to Iesha, pharmacist.
== END 2022-08-28 20:19 | disposition home or self-care (01) ==
PROVIDERS: Emergency Provider Emergency Medicine; PCP Family Medicine
DX: M62.830 Muscle spasm of back (principal); Z79.82 Long term (current) use of aspirin; Z79.899 Other long term (current) drug therapy; Z88.5 Allergy status to narcotic agent; Z88.8 Allergy status to other drugs, medicaments and biological substances; F32.A Depression, unspecified; E78.5 Hyperlipidemia, unspecified; I10 Essential (primary) hypertension; I25.2 Old myocardial infarction
CPT/HCPCS: 96374; 96375; 96376; 99284

== ENCOUNTER → 2022-09-14 16:52 | Outpatient (CLI) | payer OTHER, SELFPAY ==
[2022-09-14 17:38] LABS: Basophils # 0.1 K/mm3 (0-0.2); Basophils % 1.3 % (0.1-2.0); Eosinophils # 0.3 K/mm3 (0.0-0.4); Hematocrit 36.2 % (37.0-47.0); Hemoglobin 11.5 g/dL (12.2-16.2); Lymphocytes # 2.7 K/mm3 (0.7-4.5); Lymphocytes % 38.1 % (10-50); Mean Corpuscular HGB Conc 31.8 g/dL (31.8-35.4); Mean Corpuscular Hemoglobin 23.3 pg (27.0-31.2); Mean Corpuscular Volume 73.4 fl (81-99); Mean Platelet Volume 6.9 fl (7.4-10.4); Monocytes # 0.3 K/mm3 (0.1-1.0); Monocytes % 4.7 % (1.7-9.3); Neutrophils # 3.7 K/mm3 (1.8-7.8); Neutrophils % 51.9 % (37.0-80.0); Platelet Count 545 K/mm3 (142-424); Red Blood Count 4.94 M/mm3 (4.20-5.40); Red Cell Distribution Width 15.5 % (11.5-17.5); White Blood Count 7.1 K/mm3 (4.8-10.8)
== END ==
PROVIDERS: PCP Nurse Practitioner Family; Visit Provider Specialist
DX: R55 Syncope and collapse (principal); D64.9 Anemia, unspecified
CPT/HCPCS: 36415; 85025; 93225

== ENCOUNTER 2022-09-29 03:41 | Emergency (ER) | payer OTHER, SELFPAY ==
[2022-09-29 03:42] VITALS: BP 158/109; PULSE 115; RESP 22; TEMP 37.4; O2SAT 98; BMI 27.4
[2022-09-29 03:54] VITALS: BMI 30.7
--- NOTE | 2022-09-29 03:54 | XR_ITS ---
PROCEDURE INFORMATION: Exam: XR Chest Exam date and time: 09/29/2022 3:50 AM Age: 47 years old Clinical indication: Cough and fever and shortness of breath; Patient HX: C/O fever, cough, body aches; Additional info: SOA TECHNIQUE: Imaging protocol: Radiologic exam of the chest. Views: 2 views. COMPARISON: CR XR CHEST 2V 09/26/2021 10:22 PM FINDINGS: Lungs: Unremarkable. No consolidation. Pleural spaces: Unremarkable. No pleural effusion. No pneumothorax. Heart/Mediastinum: Unremarkable. No cardiomegaly. Bones/joints: Unremarkable. IMPRESSION: No acute findings.
--- NOTE | 2022-09-29 03:59 | HMH.EDURI ---
Discharge Plan Disposition Patient Disposition: Home, Self-Care Prescriptions Prescriptions: New benzonatate 100 mg Capsule 100 mg PO Q8H Qty: 30 0RF No Action aspirin 81 mg tablet,delayed release (DR/EC) 81 mg PO DAILY atorvastatin 40 mg tablet 40 mg PO DAILY metoprolol succinate 25 mg tablet extended release 24 hr 25 mg PO DAILY albuterol sulfate [ProAir HFA] 90 mcg/actuation HFA aerosol inhaler 2 puff INHALATION BIDP PRN (Reason: SOB) lisinopril 10 mg tablet 20 mg PO DAILY methocarbamol 500 mg tablet 500 mg PO TID montelukast [Singulair] 10 mg tablet 10 mg PO DAILY venlafaxine 75 mg capsule,extended release 24hr 75 mg PO DAILY quetiapine 25 mg tablet 25 mg PO HS Qulipta 60 mg tablet 60 mg PO DAILY Qty: 30 5RF Brilinta 90 mg tablet 90 mg PO ONCE Linzess 72 mcg capsule 72 mcg PO PRN Nurtec ODT 75 mg tablet,disintegrating 75 mg PO .COMPLEX PRN (Reason: chronic intractable headache) Rx Instructions: 75 mg orally PRN; amlodipine [Norvasc] 2.5 mg tablet 2.5 mg PO DAILY Qty: 90 3RF orphenadrine citrate 100 mg tablet extended release 100 mg PO Q12H Qty: 20 0RF hydrocodone-acetaminophen 5-325 mg tablet 1 tab PO Q6H PRN (Reason: pain) Qty: 10 0RF diclofenac potassium 50 mg tablet 50 mg PO Q8H PRN (Reason: pain) Qty: 20 0RF Referrals Follow up/Referrals: Patrizia Rice APRN [Primary Care Provider] - See instructions Clinical Impressions Clinical Impression: Viral infection Stand Alone Forms Stand Alone Forms: Work/School Release Instructions Patient Instructions: DI for Acute Bronchitis Discharge ED Provider: Dustin Royal URI/Sore Throat HPI General Chief Complaint: Upper Respiratory Infection Stated Complaint: Fever, SOA Time Seen by Provider: 09/29/22 04:00 Mode of Arrival: Ambulatory Source of Information: Patient and Medical Record Limitations: No Limitations Description of Symptoms (Recalled from ER Triage Doc. 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 Complaint: cough and sore throat Onset (ago): day(s) Duration: intermittent Severity: moderate Able to tolerate fluids by mouth: Yes Associated symptoms: denies other symptoms Treatments prior to arrival: none Related Data Home Medications Medication Instructions Recorded Confirmed aspirin 81 mg tablet,delayed 81 mg PO DAILY heart health 09/23/21 09/21/22 release albuterol sulfate 90 mcg/actuation 2 puff inhalation BIDP PRN SOB 01/05/22 09/21/22 aerosol inhaler (ProAir HFA) atorvastatin 40 mg tablet 40 mg PO DAILY Cholesterol 01/05/22 09/21/22 metoprolol succinate 25 mg 25 mg PO DAILY Heartburn 01/05/22 09/21/22 tablet,extended release 24 hr lisinopril 10 mg tablet 20 mg PO DAILY blood pressure 04/20/22 09/21/22 methocarbamol 500 mg tablet 500 mg PO TID muscle spasms 04/20/22 09/21/22 montelukast 10 mg tablet 10 mg PO DAILY allergies 04/20/22 09/21/22 (Singulair) quetiapine 25 mg tablet 25 mg PO HS 07/23/22 09/21/22 venlafaxine 75 mg capsule,extended 75 mg PO DAILY 07/23/22 09/21/22 release 24 hr linaclotide 72 mcg capsule 72 mcg PO PRN 09/14/22 09/21/22 (Linzess) rimegepant 75 mg disintegrating 75 mg PO .COMPLEX PRN chronic 09/14/22 09/21/22 tablet (Nurtec ODT) intractable headache ticagrelor 90 mg tablet (Brilinta) 90 mg PO ONCE 09/14/22 09/21/22 Previous Rx's Medication Instructions Recorded Qulipta 60 mg tablet (atogepant) 60 mg PO DAILY episodic migraine 07/23/22 #30 tabs amlodipine 2.5 mg tablet (Norvasc) 2.5 mg PO DAILY blood pressure #90 08/10/22 tabs diclofenac potassium 50 mg tablet 50 mg PO Q8H PRN pain #20 tabs 08/28/22 hydrocodone 5 mg-acetaminophen 325 1 tab PO Q6H PRN pain #10 tabs 08/28/22 mg tablet orphenadrine citrate 100 mg 100 mg PO Q12
[2022-09-29 04:03] LABS: Coronavirus 19, PCR Not Detected (NotDetected); Influenza A, PCR Not Detected (NotDetected); Influenza B, PCR Not Detected (NotDetected)
[2022-09-29 04:12] VITALS: PULSE 105; PULSE 109
[2022-09-29 04:13] LABS: Basophils # 0.1 K/mm3 (0-0.2); Basophils % 1.3 % (0.1-2.0); Eosinophils # 0.3 K/mm3 (0.0-0.4); Eosinophils % 4.2 % (0.1-12.0); Hematocrit 33.2 % (37.0-47.0); Hemoglobin 10.8 g/dL (12.2-16.2); Lymphocytes # 1.6 K/mm3 (0.7-4.5); Mean Corpuscular HGB Conc 32.5 g/dL (31.8-35.4); Mean Corpuscular Hemoglobin 23.2 pg (27.0-31.2); Mean Corpuscular Volume 71.3 fl (81-99); Mean Platelet Volume 7.2 fl (7.4-10.4); Monocytes # 0.6 K/mm3 (0.1-1.0); Monocytes % 7.9 % (1.7-9.3); Neutrophils # 5.3 K/mm3 (1.8-7.8); Neutrophils % 66.4 % (37.0-80.0); Platelet Count 419 K/mm3 (142-424); Red Blood Count 4.66 M/mm3 (4.20-5.40); Red Cell Distribution Width 15.7 % (11.5-17.5)
[2022-09-29 04:16] LABS: Alanine Aminotransferase 22 U/L (12-78); Albumin Level 4.6 g/dl (3.5-5.0); Albumin/Globulin Ratio 1.4 (1.1-1.8); Alkaline Phosphatase 79 U/L (38-126); Anion Gap 15.6 mEq/L (5-15); Aspartate Amino Transferase 27 U/L (14-36); Bilirubin,Total 0.3 mg/dl (0.2-1.3); Blood Urea Nitrogen 9 mg/dl (7-17); Calcium 9.4 mg/dl (8.4-10.2); Carbon Dioxide 23 mmol/L (22.0-30.0); Chloride 104 mmol/L (98-107); Creatinine Clearance Estimated 107 mL/min (50-200); Estimated Glomerular Filt Rate 68 ml/min (>60); GFR (African American) 82 ML/MIN (>60); Globulin 3.2 g/dL (1.3-3.2); Glucose 129 mg/dl (74-100); Potassium 3.6 mmoL/L (3.5-5.1); Sodium 139 mmol/L (136-145); Total Protein,Serum 7.8 g/dl (6.3-8.2)
[2022-09-29 04:17] LABS: Lactic Acid 1.8 mmol/L (0.7-2.1)
[2022-09-29 04:22] LABS: C-Reactive Protein 4.8 mg/L (0-4)
[2022-09-29 04:27] LABS: Strep Scrn Group A (Rapid) Negative (Negative)
[2022-09-29 04:35] LABS: Procalcitonin 0.048 ng/mL (0.0-2.0)
[2022-09-29 04:41] LABS: Adenovirus,PCR Not Detected (NotDetected); Bordetella Pertussis Not Detected (NotDetected); Chlamydophila Pneumoniae, PCR Not Detected (NotDetected); Coronavirus 19, PCR Not Detected (NotDetected); Coronavirus 229E Not Detected (NotDetected); Coronavirus NL63 Not Detected (NotDetected); Coronavirus OC43 Not Detected (NotDetected); Coronovirus HKU1,PCR Not Detected (NotDetected); Influenza A, PCR Not Detected (NotDetected); Influenza AH1, 2009 Not Detected (NotDetected); Influenza AH1, PCR Not Detected (NotDetected); Influenza AH3,PCR Not Detected (NotDetected); Influenza B, PCR Not Detected (NotDetected); Mycoplasma Pneumoniae, PCR Not Detected (NotDetected); Parainfluenza 1, PCR Not Detected (NotDetected); Parainfluenza 2, PCR Not Detected (NotDetected); Parainfluenza 3, PCR Not Detected (NotDetected); Parainfluenza 4, PCR Not Detected (NotDetected); Respiratory Syncytial Virus Not Detected (NotDetected); Rhinovirus/Enterovirus Not Detected (NotDetected)
[2022-09-29 05:12] LABS: Erythrocyte Sedimentation Rate 16 mm/hr (0-20)
[2022-09-29 06:37] VITALS: BP 160/87; PULSE 101; O2SAT 97
--- NOTE | 2022-09-29 06:54 | PC.NURSE ---
Pt ambulatory to bathroom and back to bed. Pt voiced no complaints at this time. Pt updated on POC.
[2022-09-29 07:30] LABS: Human Metapneumovirus Detected (NotDetected)
[2022-09-29 07:55] VITALS: BP 134/92; PULSE 89; RESP 18; TEMP 36.8; O2SAT 98
== END 2022-09-29 07:55 | disposition home or self-care (01) ==
PROVIDERS: Emergency Provider Emergency Medicine; PCP Nurse Practitioner Family
DX: R06.02 Shortness of breath (principal); R50.9 Fever, unspecified; J02.9 Acute pharyngitis, unspecified; R42 Dizziness and giddiness; M79.10 Myalgia, unspecified site; Z20.822 Contact with and (suspected) exposure to COVID-19; I10 Essential (primary) hypertension; E78.5 Hyperlipidemia, unspecified; F32.A Depression, unspecified; F41.9 Anxiety disorder, unspecified; Z79.52 Long term (current) use of systemic steroids; Z79.82 Long term (current) use of aspirin; Z79.899 Other long term (current) drug therapy; Z88.0 Allergy status to penicillin; Z88.1 Allergy status to other antibiotic agents; Z88.3 Allergy status to other anti-infective agents; Z88.5 Allergy status to narcotic agent; Z88.8 Allergy status to other drugs, medicaments and biological substances; Z86.61 Personal history of infections of the central nervous system; Z87.898 Personal history of other specified conditions
CPT/HCPCS: 71046; 80053; 83605; 84145; 85025; 85651; 86140; 87040; 87430; 87581; 87632; 87798; 96361; 96374; 96375; 96376; 99284; C9803; J2405; U0003; U0005

== ENCOUNTER → 2022-10-06 12:16 | Outpatient (CLI) | payer OTHER, SELFPAY ==
--- NOTE | 2022-10-06 12:24 | XR_ITS ---
FINAL REPORT CLINICAL HISTORY: SOB,PNEUMONIA COMPARISON: September 29, 2022 FINDINGS: TWO-VIEW CHEST Two views of the chest were obtained. The heart size and pulmonary vascularity are within normal limits. The mediastinum is normal. No acute pulmonary abnormality is identified. There is no pneumothorax. The bony thorax is intact. IMPRESSION: No active cardiopulmonary disease. Reviewed, Interpreted and Dictated by Lucinda Bishop MD Transcribed by Charlene Alexandre Authenticated and [facility]
== END ==
PROVIDERS: PCP Nurse Practitioner Family; Visit Provider Nurse Practitioner Family
DX: R06.02 Shortness of breath (principal); J12.3 Human metapneumovirus pneumonia
CPT/HCPCS: 71046

== ENCOUNTER 2022-10-22 11:05 | Outpatient (CLI) | payer OTHER, SELFPAY ==
[2022-10-22 11:30] VITALS: BP 103/78; PULSE 72; RESP 18
[2022-10-22 12:05] VITALS: BP 120/80; PULSE 72; RESP 16
== END 2022-10-22 12:15 | disposition home or self-care (01) ==
LOC: INF 11:05
PROVIDERS: PCP Nurse Practitioner Family; Visit Provider Nurse Practitioner Family
DX: D50.9 Iron deficiency anemia, unspecified (principal)
CPT/HCPCS: 96365; J1439

== ENCOUNTER → 2022-10-23 15:16 | Outpatient (CLI) | payer OTHER, SELFPAY ==
--- NOTE | 2022-10-23 15:17 | MM_ITS ---
PROCEDURE INFORMATION: Exam: MG Bilateral Screening 3D Mammography Exam date and time: 10/23/2022 3:48 PM Age: 47 years old Clinical indication: Screening. No family history of breast cancer. TECHNIQUE: Imaging protocol: Bilateral Screening tomosynthesis and 2D mammography including computer-aided detection (CAD) when performed. COMPARISON: MG MY Digital Dx BILAT 04/21/2016 9:01 AM FINDINGS: MAMMOGRAPHY: Breast composition: There are scattered areas of fibroglandular density. Mass: None. Architectural distortion: None. Calcifications: No suspicious calcifications. Asymmetric density: None. Skin thickening: None. Axillary adenopathy: None. IMPRESSION: No mammographic evidence of malignancy. Annual screening is recommended unless otherwise clinically indicated. ASSESSMENT: BI-RADS Category 1: Negative
--- NOTE | 2022-10-23 15:17 | US_ITS ---
FINAL REPORT TECHNIQUE: Sonographic images of the pelvis were obtained transvaginally. CLINICAL HISTORY: abnormal uterine bleeding FINDINGS: The uterus is anteverted and anteflexed. It measures 9.0 x 5.1 x 6.7 cm. The endometrial stripe measures 19 mm which is even thickened in a premenopausal patient. The myometrium is heterogeneous which could be related to small fibroids or adenomyosis. There are nabothian cysts in the cervix which is otherwise normal. The right ovary measures 4.1 x 1.8 x 2.0 cm. It is normal in appearance. The left ovary measures 2.9 x 2.4 x 2.6 cm. There is a 2.4 cm simple cyst. Color imaging to the ovaries is within normal limits. There is no free fluid. IMPRESSION: 1. Thickened endometrium even in a premenopausal patient. Recommend 6 or 10 week follow-up. 2. Left ovarian cyst which is likely functional in a patient of this age. Given size of less than 3 cm, no follow-up is needed. 3. Heterogeneous myometrium could be related to small fibroids or adenomyosis. Reviewed, Interpreted and Dictated by Ni Santa MD Transcribed by Jannette Olivo Authenticated and [facility]
== END ==
PROVIDERS: PCP Nurse Practitioner Family; Visit Provider Obstetrics & Gynecology
DX: Z12.31 Encounter for screening mammogram for malignant neoplasm of breast (principal); N93.9 Abnormal uterine and vaginal bleeding, unspecified
CPT/HCPCS: 76830; 77063; 77067

== ENCOUNTER 2022-10-29 09:35 | Outpatient (CLI) | payer OTHER, SELFPAY ==
[2022-10-29 10:10] VITALS: BP 103/70; PULSE 67; RESP 16; O2SAT 100
[2022-10-29 10:45] VITALS: BP 121/72; PULSE 66; RESP 16
== END 2022-10-29 10:55 | disposition home or self-care (01) ==
PROVIDERS: PCP Nurse Practitioner Family; Visit Provider Nurse Practitioner Family
DX: D50.9 Iron deficiency anemia, unspecified (principal)
CPT/HCPCS: 96365; J1439

== ENCOUNTER → 2022-11-09 15:35 | Outpatient (CLI) | payer OTHER, SELFPAY ==
[2022-11-09 16:31] LABS: Basophils # 0.2 K/mm3 (0-0.2); Basophils % 2.2 % (0.1-2.0); Eosinophils # 0.3 K/mm3 (0.0-0.4); Eosinophils % 4.2 % (0.1-12.0); Hematocrit 40.7 % (37.0-47.0); Hemoglobin 13.2 g/dL (12.2-16.2); Lymphocytes # 3.2 K/mm3 (0.7-4.5); Lymphocytes % 39.3 % (10-50); Mean Corpuscular HGB Conc 32.3 g/dL (31.8-35.4); Mean Corpuscular Hemoglobin 24.8 pg (27.0-31.2); Mean Corpuscular Volume 76.8 fl (81-99); Mean Platelet Volume 7.1 fl (7.4-10.4); Monocytes # 0.4 K/mm3 (0.1-1.0); Monocytes % 4.8 % (1.7-9.3); Neutrophils % 49.4 % (37.0-80.0); Platelet Count 479 K/mm3 (142-424); Red Cell Distribution Width 21.4 % (11.5-17.5); White Blood Count 8.1 K/mm3 (4.8-10.8)
[2022-11-09 16:40] LABS: Alanine Aminotransferase 30 U/L (12-78); Albumin Level 4.9 g/dl (3.5-5.0); Albumin/Globulin Ratio 1.5 (1.1-1.8); Alkaline Phosphatase 85 U/L (38-126); Anion Gap 11.1 mEq/L (5-15); Aspartate Amino Transferase 41 U/L (14-36); Bilirubin,Total 0.4 mg/dl (0.2-1.3); Blood Urea Nitrogen 9 mg/dl (7-17); Calcium 8.9 mg/dl (8.4-10.2); Carbon Dioxide 29 mmol/L (22.0-30.0); Chloride 104 mmol/L (98-107); Estimated Glomerular Filt Rate 68 ml/min (>60); GFR (African American) 82 ML/MIN (>60); Globulin 3.2 g/dL (1.3-3.2); Glucose 100 mg/dl (74-100); Potassium 4.1 mmoL/L (3.5-5.1); Sodium 140 mmol/L (136-145); Total Protein,Serum 8.1 g/dl (6.3-8.2)
[2022-11-09 17:04] LABS: HCG,Quantitative < 2 mIU/ml (0-5.42)
== END ==
PROVIDERS: PCP Nurse Practitioner Family; Visit Provider Obstetrics & Gynecology
DX: Z01.812 Encounter for preprocedural laboratory examination (principal); N92.0 Excessive and frequent menstruation with regular cycle
CPT/HCPCS: 36415; 80053; 84702; 85025

== ENCOUNTER 2022-11-11 07:18 | Day surgery (SDC) | payer OTHER, SELFPAY ==
[2022-11-06 11:10] VITALS: BMI 30.7
[2022-11-11] VITALS (13 sets, daily range): BP systolic 131–172; BP diastolic 78–107; PULSE 64–86; RESP 12–18; TEMP -17.7–36.9; O2SAT 94–98
--- NOTE | 2022-11-11 09:42 | P.PN_ITS ---
[facility] Disclaimer: The information contained in this section may have been updated after the patient was seen, as this information can be updated by other users. Medical History Anxiety Asthma Brain aneurysm Status post coiling, asymptomatic. Chest pain Depression Depression Dizziness Dyspnea Endometriosis History of anemia History of COVID-19 History of heart attack History of meningitis HLD (hyperlipidemia) HTN (hypertension) Irritable bowel syndrome (IBS) Kidney stone Menorrhagia Migraine Myocardial infarct Urinary tract infection Surgical History H/O cerebral aneurysm repair H/O tubal ligation History of arthroscopy of right shoulder History of cholecystectomy Hx of cholecystectomy Family History Mother Ovarian cancer Family history of stroke Grandmother Lung cancer Other Family history of diabetes mellitus type II Family history of myocardial infarction No significant family history Social History Smoking Status: Never smoker alcohol intake: current substance use type: denies use current occupational status: employed Travel in the last 8 weeks: None household members: significant other and children housing: house lives independently: Yes marital status: education level: other current occupational exposures/hazards: No caffeine: Yes do you feel safe at home: Yes victim of physical abuse: No victim of emotional abuse: No victim of sexual abuse: No [facility] Anesthesia Checklist Patient Identification Patient Identification: Verbal (Name & ) Structural Data Admitted From: Home Planned Operative Procedure/s: d/c natasha escalona Consent for Planned Operative Procedure(s) Verified: Yes NPO Status Verified Time NPO: 00:00 Additional verifications Anesthesia Reactions: No Hx Blood Transfusions: No Blood Transfusion Reaction: Yes Airway Assessment C-Spine Mobility Assessed: Yes TMJ Mobility Assessed: Yes Dentition: Good Dentition Neurological Assessment Level of Consciousness: Awake, Alert and Appropriate Anesthesia Plan Anesthesia Risk discussed: Yes Anesthesia Plan: Verified ASA Class: II Anesthesia Type: General
--- NOTE | 2022-11-11 10:08 | P.PNANES_ITS ---
[facility] Anesthesia Record Part I Anesthesia Record I Intake, IV Amount: 1,000 Estimated blood loss (mL): 5 Urine output (mL): 25 Blood Pressure: 151/85 SaO2: 95 Pulse Rate: 79 Respiratory Rate: 12 Temperature: 98.2 F Patient is:: Awake and Stable Stable to PACU at:: 10:05
--- NOTE | 2022-11-11 10:24 | EXP.OP.NOTE ---
Date of procedure: 11/11/22 Pre-op Diagnosis:: 1. Menorrhagia Post-op Diagnosis:: 1. Menorrhagia Procedure performed:: 1. Hysteroscopy, Dilation and Curettage with Myosure 2. Novasure endometrial ablation Surgeon:: Guerita Braden DO Party Planner(s):: N/a SCOREBOARD OPERATOR:: Adolfo Hazel Anesthesia: GETA Estimated blood loss (mL): 0 Clinical Note:: Ms Tatyana Isaac is a 47 yo P2002 who presents to [facility] for scheduled procedure. She complains of regular, monthly periods. Flow lasts 4 days but 2 days are extremely heavy. She reports fatigue during this heavy bleeding with bleeding through a super tampon and pad. She reports history of anemia. Pelvic ultrasound demonstrated thickened endometrium 19 mm, possible small fibroids in the myometrium or adenomyosis, Small left functional cyst, 2.4 cm. History of x 2 and tubal ligation. Operative findings:: 1. On bimanual exam, uterus normal size and shape, midposition. 2. On hysteroscopice exam, tubal ostia easily visualized. Large amount of fluffy tissue noted around cavity with greatest amount on anterior uterine wall Operative note:: Risks, benefits and alternatives were discussed with the patient. Risks include but are not limited to bleeding, infection, uterine perforation and VTE. Patient voiced understanding and agreed to proceed. She was wheeled back to the operating room and placed under general anesthesia without difficulty. She was placed in dorsal lithotomy position and prepped and draped in the normal sterile fashion. A bimanual exam was performed. A weighted Auvard was placed in the vaginal vault. Single tooth tenaculum was placed on anterior lip of the cervix. Uterus sounded to 8. Sequential Zaid dilators were used to dilate the cervical os. Hysteroscope was tested inserted through the cervix without difficulty. Endometrial cavity was evaluated. See findings above. Pictures were taken. Myosure was inserted through the hysteroscope and curettage was performed per protocol under direct visualization. Hysteroscope and Myosure was removed. In addition, a medium size sharp curette was inserted through the cervix into the uterine cavity. The endometrial cavity was curetted with a systemic [id number] movement of the curette in a 360 degree fashion. Endometrial curettings will be sent to pathology for review. Novasure sure sound was used to obtain uterine length. Uterus measured 5.0 cm in length and 3.7 cm in cavity width. Novasure deviced was inserted and ablation was performed per protocol at a power of 102 w for 88 seconds. Novasure device was removed. Hysteroscope was reinserted and cavity revealed adequate burn and no uterine perforation. Hysteroscope was removed. Instruments were removed from the vagina. Tenaculum site was noted to be hemostatic. Patient was awaken from anesthesia without difficulty. She was transported to recovery room in stable condition. Patient will be discharged home when awake and ambulating. She was given postop instructions as well as instructions to follow-up in the office in 2 weeks at which time pathology will be reviewed. Condition: stable Disposition: same day Specimens:: 1. Endometrial curettings Complications:: None
--- NOTE | 2022-11-11 12:45 | P.PN_ITS ---
[facility] Disclaimer: The information contained in this section may have been updated after the patient was seen, as this information can be updated by other users. Medical History Anxiety Asthma Brain aneurysm Status post coiling, asymptomatic. Chest pain Depression Depression Dizziness Dyspnea Endometriosis History of anemia History of COVID-19 History of heart attack History of meningitis HLD (hyperlipidemia) HTN (hypertension) Irritable bowel syndrome (IBS) Kidney stone Menorrhagia Migraine Myocardial infarct Urinary tract infection Surgical History H/O cerebral aneurysm repair H/O tubal ligation History of arthroscopy of right shoulder History of cholecystectomy Hx of cholecystectomy Family History Mother Ovarian cancer Family history of stroke Grandmother Lung cancer Other Family history of diabetes mellitus type II Family history of myocardial infarction No significant family history Social History Smoking Status: Never smoker alcohol intake: current substance use type: denies use current occupational status: employed Travel in the last 8 weeks: None household members: significant other and children housing: house lives independently: Yes marital status: education level: other current occupational exposures/hazards: No caffeine: Yes do you feel safe at home: Yes victim of physical abuse: No victim of emotional abuse: No victim of sexual abuse: No [facility] Anesthesia Checklist Patient Identification Patient Identification: Verbal (Name & ) Structural Data Admitted From: Inpatient Planned Operative Procedure/s: orif r hip Consent for Planned Operative Procedure(s) Verified: Yes NPO Status Verified Time NPO: 00:00 Additional verifications Anesthesia Reactions: No Hx Blood Transfusions: No Blood Transfusion Reaction: Yes Airway Assessment C-Spine Mobility Assessed: Yes TMJ Mobility Assessed: Yes Dentition: Poor Dentition Neurological Assessment Level of Consciousness: Awake, Alert and Appropriate Anesthesia Plan Anesthesia Risk discussed: Yes Anesthesia Plan: Verified ASA Class: IV Anesthesia Type: Spinal Preoperative Comments Pre-Operative Comments: pt is very high risk do to CHF and existing poor pulmonary perfusion sats 80s, risks discussed w pt and family.
[2022-11-16 09:11] VITALS: BP 162/87; PULSE 69; TEMP 36.6
--- NOTE | 2022-11-16 09:11 | EXP.ANES.II ---
[facility] Anesthesia Record Part II Anesthesia Record Part II Discharge Time: 10:35 Destination: Surgical Day Care (OP Surgery) PACU nurse assessment reviewed?: Yes Patient Condition:: Good Anesthesia Complications:: None Swallowing reflex intact?: Yes Cyanosis?: No Blood Pressure: 162/87 Pulse Rate: 69 Temperature: 97.9 F Mental Status: Alert & Oriented Pain level:: 0 Nausea and/or vomitting:: None Intake, IV Amount: 0
== END 2022-11-11 11:45 | disposition home or self-care (01) ==
PROVIDERS: PCP Nurse Practitioner Family; Visit Provider Obstetrics & Gynecology
PROC: (CPT 58563; principal; 2022-11-11 09:15)
DX: N92.0 Excessive and frequent menstruation with regular cycle (principal); N84.0 Polyp of corpus uteri; Z79.899 Other long term (current) drug therapy
CPT/HCPCS: 58563; J2405

== ENCOUNTER → 2023-01-22 07:25 | Outpatient (CLI) | payer OTHER, SELFPAY ==
[2023-01-22 08:52] LABS: Basophils # 0.1 K/mm3 (0-0.2); Eosinophils # 0.3 K/mm3 (0.0-0.4); Eosinophils % 4.3 % (0.1-12.0); Hematocrit 42.5 % (37.0-47.0); Hemoglobin 14.3 g/dL (12.2-16.2); Lymphocytes # 2.8 K/mm3 (0.7-4.5); Lymphocytes % 38.2 % (10-50); Mean Corpuscular HGB Conc 33.5 g/dL (31.8-35.4); Mean Corpuscular Hemoglobin 28.8 pg (27.0-31.2); Mean Corpuscular Volume 85.9 fl (81-99); Mean Platelet Volume 7.6 fl (7.4-10.4); Monocytes # 0.4 K/mm3 (0.1-1.0); Monocytes % 5.3 % (1.7-9.3); Neutrophils # 3.7 K/mm3 (1.8-7.8); Neutrophils % 51.2 % (37.0-80.0); Platelet Count 392 K/mm3 (142-424); Red Blood Count 4.95 M/mm3 (4.20-5.40); Red Cell Distribution Width 15.3 % (11.5-17.5); White Blood Count 7.2 K/mm3 (4.8-10.8)
[2023-01-22 09:14] LABS: Alanine Aminotransferase 26 U/L (12-78); Albumin Level 4.2 g/dl (3.5-5.0); Albumin/Globulin Ratio 1.6 (1.1-1.8); Alkaline Phosphatase 72 U/L (38-126); Aspartate Amino Transferase 27 U/L (14-36); Bilirubin,Total 0.3 mg/dl (0.2-1.3); Blood Urea Nitrogen 9 mg/dl (7-17); Calcium 8.7 mg/dl (8.4-10.2); Carbon Dioxide 28 mmol/L (22.0-30.0); Chloride 104 mmol/L (98-107); Estimated Glomerular Filt Rate 68 ml/min (>60); GFR (African American) 82 ML/MIN (>60); Globulin 2.6 g/dL (1.3-3.2); Glucose 90 mg/dl (74-100); Sodium 139 mmol/L (136-145); Total Protein,Serum 6.8 g/dl (6.3-8.2)
[2023-01-22 09:29] LABS: HCG,Quantitative < 2 mIU/ml (0-5.42)
== END ==
PROVIDERS: PCP Family Medicine; Visit Provider Obstetrics & Gynecology
DX: Z01.812 Encounter for preprocedural laboratory examination (principal); N93.9 Abnormal uterine and vaginal bleeding, unspecified
CPT/HCPCS: 36415; 80053; 84702; 85025

== ENCOUNTER 2023-01-25 06:22 | Observation (INO) | payer OTHER, SELFPAY ==
[2023-01-21 11:04] VITALS: BMI 30.7
[2023-01-25] VITALS (23 sets, daily range): BP systolic 101–141; BP diastolic 57–92; PULSE 64–106; RESP 15–20; TEMP 36.1–43; O2SAT 93–99
[2023-01-25 06:23] LABS: Coronavirus 19, PCR Not Detected (NotDetected); Influenza A, PCR Not Detected (NotDetected); Influenza B, PCR Not Detected (NotDetected)
--- NOTE | 2023-01-25 06:59 | EXP.HP ---
History of Present Illness *Admission Date: 01/25/23 *Reason for visit:: Scheduled surgery *History of present illness: Ms Tatyana Isaac is a 47 yo P2002 who presents to [facility] for scheduled procedure. She complains of lower pelvic pressure/pain and brown/escobedo discharge since hysteroscopy D&C, endometrial ablation 11/11/22. Prior to endometrial ablation she was having heavy, regular periods with associated fatigue and history of anemia. History of x 2 and tubal ligation. She requests definitive surgical intervention with hysterectomy. [facility] Disclaimer: The information contained in this section may have been updated after the patient was seen, as this information can be updated by other users. Medical History Abnormal uterine bleeding Anxiety Asthma Brain aneurysm Depression Dizziness Dyspnea Endometriosis H/O chronic meningitis History of anemia History of heart attack History of meningitis HLD (hyperlipidemia) HTN (hypertension) Irritable bowel syndrome (IBS) Menorrhagia Migraine Myocardial infarct Pelvic pain Surgical History H/O cerebral aneurysm repair H/O tubal ligation History of arthroscopy of right shoulder History of cholecystectomy History of endometrial ablation Hx of cholecystectomy Family History Mother Ovarian cancer Family history of stroke Grandmother Lung cancer Other Family history of diabetes mellitus type II Family history of myocardial infarction No significant family history Social History Smoking Status: Never smoker alcohol intake: never substance use type: denies use current occupational status: employed Travel in the last 8 weeks: None household members: significant other and children housing: house lives independently: Yes marital status: education level: other current occupational exposures/hazards: No caffeine: Yes do you feel safe at home: Yes victim of physical abuse: No victim of emotional abuse: No victim of sexual abuse: No Review of Systems Review of Systems Review of systems:: pertinent systems reviewed and negative unless documented below *Gastrointestinal Gastrointestinal: Reports abdominal pain *Genitourinary Genitourinary: Reports abnormal vaginal bleeding and Reports vaginal discharge Meds Home Medications and Allergies Home Medications Medication Instructions Recorded Confirmed Type albuterol sulfate 90 mcg/actuation 2 puff inhalation BIDP PRN SOB 01/05/22 01/20/23 History aerosol inhaler (ProAir HFA) linaclotide 72 mcg capsule 72 mcg PO NEEDED PRN BOWELS 09/14/22 01/20/23 History (Linzess) hydrocodone 5 mg-acetaminophen 325 1 tab PO Q6H PRN pain #10 tabs 11/11/22 01/20/23 Rx mg tablet ibuprofen 800 mg tablet 800 mg PO Q8H PRN pain #20 tabs 11/11/22 01/20/23 Rx Qulipta 60 mg tablet (atogepant) 60 mg PO DAILY episodic migraine 11/16/22 01/19/23 Rx #30 tabs rimegepant 75 mg disintegrating 75 mg PO Q OTHER DAY PRN Episodic 11/16/22 01/20/23 Rx tablet (Nurtec ODT) migraine #10 tabs New Prescriptions to Start Prescriptions: Allergies Allergy/AdvReac Type Severity Reaction Status Date / Time fentanyl Allergy Severe Anxiety Verified 01/20/23 16:06 ciprofloxacin [From Cipro] Allergy Mild Verified 01/20/23 16:06 morphine Allergy Verified 01/20/23 16:06 Exam Data for Last 24 hours Vital signs and Labs for Last 24 Hours: Temp Pulse Resp BP Pulse Ox 97.0 F L 72 18 131/92 H 97 01/25/23 06:19 01/25/23 06:19 01/25/23 06:19 01/25/23 06:19 01/25/23 06:19 Laboratory Results - last 24 hr 01/25/23 06:16: SARS-CoV-2 (PCR) Not detected, Influenza A Untype (PCR) Not detected, Influenza Type B (PCR) Not detected Constitutional Constitutional: no acute d
--- NOTE | 2023-01-25 07:12 | P.CONPHA_ITS ---
Pharmacy Intervention Comments: MEDICATION RECONCILIATION COMPLETED ON PATIENT USING EXTERNAL FILL HISTORY FROM PHARMACY AND LIST FROM GUEST HOUSE MANAGER OFFICE. -BERRY VIZCAINOD
--- NOTE | 2023-01-25 07:12 | HMH.PHAINT1 ---
Pharmacy Intervention Comments: MEDICATION RECONCILIATION COMPLETED ON PATIENT USING EXTERNAL FILL HISTORY FROM PHARMACY AND LIST FROM LINING MACHINE TENDER OFFICE. -BERRY VIZCAINOD
--- NOTE | 2023-01-25 10:27 | P.PNANES_ITS ---
[facility] Anesthesia Record Part I Anesthesia Record I Intake, IV Amount: 1,500 Estimated blood loss (mL): 200 Urine output (mL): 400 Blood Products used (#): none Blood Pressure: 132/72 SaO2: 94 Pulse Rate: 65 Respiratory Rate: 16 Temperature: 98.2 F Patient is:: Drowsy and Stable Stable to PACU at:: 10:20
--- NOTE | 2023-01-25 10:30 | EXP.OP.NOTE ---
Date of procedure: 01/25/23 Pre-op Diagnosis:: 1. Pelvic pain 2. Abnormal uterine bleeding 3. Failed endometrial ablation Post-op Diagnosis:: 1. Pelvic pain 2. Abnormal uterine bleeding 3. Failed endometrial ablation 4. Left hematosalpinx Procedure performed:: Total Laparoscopic hysterectomy, bilateral salpingo oophorectomy Surgeon:: Guerita Braden DO Civil Drafting Technician(s):: Prakash Aranda MD CAR RENTAL SERVICE ATTENDANT:: Rex Emery Anesthesia: GETA Estimated blood loss (mL): 200 Clinical Note:: Ms Tatyana Isaac is a 47 yo P2002 who presents to [facility] for scheduled procedure. She complains of lower pelvic pressure/pain and brown/escobedo discharge since hysteroscopy D&C, endometrial ablation 11/11/22. Prior to endometrial ablation she was having heavy, regular periods with associated fatigue and history of anemia. History of x 2 and tubal ligation. She requests definitive surgical intervention with hysterectomy. Pelvic ultrasound prior to endometrial ablation, 10/23/22, demonstrated thickened endometrium (19 mm) even in a premenopausal patient. Recommend 6 or 10 week follow-up.? 2.? Left ovarian cyst which is likely functional in a patient of this age.? Given size of less than 3 cm, no follow-up is needed.? 3.? Heterogeneous myometrium could be related to small fibroids or adenomyosis. Operative findings:: 1. Uterus slightly enlarged, midline and midposition. Normal shape. No adnexal masses palpated 2. Upon laparoscopic exam, grossly normal appearing liver, stomach and bowels. Left hematosalpinx noted. Grossly normal appearing uterus, right fallopian tube and bilateral ovaries. No evidence of endometriosis or adhesions. Operative note:: Discussed risks, benefits, alternatives, expectations and possible complications of surgery. All questions addressed and answered. Patient wished to proceed with surgery. Patient was wheeled back to the operating room and placed under general anesthesia without difficulty. She was placed in the dorsal lithotomy position. She was prepped and draped in normal sterile fashion. Beginning at the vagina, a botello catheter was inserted into the bladder and draining clear urine prior to the start of the procedure. Weighted Auvuard was placed in the vaginal vault. Anterior lip of the cervix was grasped with single tooth tenaculum. Uterus sounded to 8. Zaid dilators were used to dilate the cervix. Advincula uterine manipulator was inserted into the cervix with the colpotomy cup covering the cervix. Single tooth tenaculum was removed prior to complete placement of colpotomy cup over cervix. Uterine balloon was filled with 10cc of air. Vaginal balloon was filled with 60 cc of air. Weighted Auvard was removed. Attention was then turned to the abdomen. Skin just below the umbilicus was injected with 0.5% marcaine. A 2cm infraumbilical incision was made. Veress needle was tested and inserted intrabdominally. Opening pressure was 7 mm Hg. The peritoneal cavity was insulflated to 15 mm Hg. Laparoscope within 11 mm blunt trocar was inserted intrabdominally under direct visualization. Obturator and scope were removed. Laparoscope was inserted into the trocar sleeve. Abdomen and pelvis was viewed in its entirety. Examination of the peritoneal cavity revealed no signs of injury from entry and normal anatomic structures. See findings above. Pictures were taken. Bowel was swept cephalad with blunt probe. LLQ port site was transilluminated and injected with 0.5% marcaine. A 2 cm incision was made and 11m trocar was inserted intraabdominally under direct laparoscopic visualization. Obturator was removed and sleeve was left in place. RLQ port site was transilluminated and injected with 0.5% marcaine. A 5 mm incision was made and 5 mm trocar was inserted intraabdominally under direct laparoscopic visualization. Obturator was removed and sleeve was left in place. Right fallopian tube was grasped at fimbriated end. Ligasure Hook was used to transect the right IP ligament and suspensory
--- NOTE | 2023-01-25 11:35 | PC.NURSE ---
SPOKE WITH CANAN R/T PTS PAIN AND ABDOMINAL TENDERNESS. ORDERS FOR K PAD AND A PILLOW TO ABD AND TO MONITOR VITALS. R/V ALSO REPORTS TO GIVE OXY 5MG AROUND 1230-1 IF PATIENT TOLERATES FOOD WELL.
--- NOTE | 2023-01-25 12:10 | PC.NURSE ---
SPOKE WITH DR CAUSEY ABOUT PATIENTS ANXIETY/PANIC ATTACK. ORDERS FOR A ONE TIME DOSE OF ATIVAN 1MG PO NOW. R/V
--- NOTE | 2023-01-25 15:05 | PC.NURSE ---
PT GOT UP AT THIS TIME WIHT ASSISTANCE X2. ABLE TO VOID AGAIN- GOT PALE, AND FELT LIKE SHE WAS GOING TO PASS OUT PER PATIENT. PT ABLE TO BE SAT BACK DOWN IN BED. OXYGEN IN PLACE AT THIS TIME. VITALS WNL. LUNGS CTA, AND BOWEL ACTIVE X4 NOW. INCISION C/D/I WITH DERMABOND. PT HAS BEEN USING HEATING PAD. SCUDS IN PLACE. VOIDING APPROP. IV INFUSING. PAIN 03/13. ENCOURAGING MOVEMENT AND COUGHING/DEEP BREATHING.
--- NOTE | 2023-01-25 17:27 | PC.NURSE ---
TELEPHONE ORDERS FOR OXYCODONE 5-10MG EVERY 6 HOURS FOR PRN ALL ORDERS R/V
--- NOTE | 2023-01-25 19:07 | PC.NURSE ---
REPORT TO Lorena MCKEON RN
--- NOTE | 2023-01-25 19:10 | PC.NURSE ---
REPORT RECIEVED FROM CATRACHITARN
--- NOTE | 2023-01-25 21:21 | PC.NURSE ---
AT 2014 THE CALL LIGHT FROM THE BATHROOM WAS GOING OFF,HAD JUST BEEN IN ROOM AT 2000 AND PT WAS ASLEEP.PT REPORTED SHE TRIED TO CALL OUT AND THE CALL LIGHT WAS NOT WORKING AND SHE NEEDED TO GO BAD.PT HAD VOIDED 900ML OF YELLOW URINE.ASSISTED PT BACK TO BED ASSISTED WITH IV POLE ONLY,AMBULATION WAS STEADY.PT SHOWED STAFF THAT SHE WAS PUSHING THE CALL BUTTON ON THE BED,THE CORD ONE WAS UP NEXT TO HER PILLOW,IT WAS PUSHED TO SEE IF IT WORKED AND IT DID,CALL LIGHT PLACED ON PT ABD.PT REPORTED THAT NOW HER PAIN IS 6,SHE WAS MEDICATED WITH OXYCODONE 5MG PO AND NOW SHE IS ASLEEP
--- NOTE | 2023-01-25 22:19 | PC.NURSE ---
DINAH.TORADOL 30MG IVP GIVEN AT 2156,PT REPORTS SHE HAS TO GO TO BATHROOM AGAIN,ASSISTED PT WITH IV POLE ,SHE VOIDED 600ML OF CLEAR URINE,DECREASED LR TO 75ML.GRAMHAM CRACKERS AND PEANUT BUTTER PROVIDED,PT DRINKING PLENTY OF WATER,NO OTHER NEEDS OR CONCERNS VOICED
--- NOTE | 2023-01-25 23:25 | PC.NURSE ---
UPON ENTERING ROOM PT WAS ASLEEP,EASILY AROUSED,B/P WAS 101/57,P-84,R-19,98.2,SAT LEVEL ON 2 LITER OXYGEN-93%.DINAH.TYLENOL 1000MG PO AND ANCEF 1 GRAM HUNG ANOTHER BAG LR HUNG.WHEN ASKED IF SHE WAS HAVING PAIN SHE SAID YES RATED IT A 7,PT DENIES PASSING ANY GAS,ENCOURGED PT TO SIT IN ROCKING CHAIR AND ROCK TO HELP PASS GAS AND SHE SAID SHE WAS AFRAID SHE WOULD GO TO SLEEP,HAVING PT CHEW SOME GUM.PT REPORTS SHE HAS IBS AND SOME TIMES SHE CAN GO 14 DAYS WITHOUT HAVING A BOWEL MOVEMENT.TOLD HER LETS TRY THE CHEWING GUM FIRST TO SEE IF THIS WOULD HELP THE GAS AND PAIN ALONG WITH THE TYLENO,SINCE THE OXYCODONE CAN CAUSE CONSTIPATION,PT V/U
--- NOTE | 2023-01-26 00:40 | PC.NURSE ---
PT TRIED TURNING ON HER LEFT SIDE TO SEE IF THAT WOULD HELP HER TO PASS SOME GAS AND PT REPORTS THAT WAS NOT GOING TO WORK.AFTER GETTING UP TO SIT IN CHAIR,THE PRESSURE SHE FELT SHE NEEDED TO GO TO BATHROOM,PT VOIDED 800ML.PT WENT BACK TO [facility] CHAIR TO ROCK TO SEE IF THIS WOULD HELP BECAUSE SHE REFUSED TO WALK IN [place],SHE REPORTS BEING DIZZY,CALL LIGHT IN REACH WILL CHECK ON HER IN 30 MINS,PT V/U
[2023-01-26 04:06] VITALS: BP 111/63; PULSE 85; RESP 17; TEMP 36.7; O2SAT 94
--- NOTE | 2023-01-26 04:24 | PC.NURSE ---
PT LUNGS CLEAR ALL FRONT,NORMAL BOWEL SOUNDS X4 QUADS,PT REPORTS SHE DID PASS SOME GAS,3 LAP SITES C.D.I WITH DERMABOND.PT HAS VOIDED WITHOUT DIFF.TOTAL OF 2300ML OF YELLOW URINE,PT RATES HER PAIN THIS MORNING AT A 6 OUT OF 10,DINAH.TORADOL 30MG IVP GIVEN.PT REPORTS THE PAIN MEDICINE DOES NOT TAKE THE PAIN AWAY JUST MAKES HER SLEEPY,TOLD HER THAT GETTING UP AND MOVING WOULD GET HER TO PASSING MORE GAS AND MAKE HER FEEL BETTER,PT DECLINED AT THIS TIME.IV PATENT AND INFUSING AT 75ML SINCE PT HAS HAD GOOD OUTPUT AND DRINKING PLENTY OF FLUIDS.V/S STABLE
[2023-01-26 05:57] LABS: Basophils % 0.3 % (0.1-2.0); Eosinophils % 0.4 % (0.1-12.0); Hematocrit 31.4 % (37.0-47.0); Hemoglobin 10.8 g/dL (12.2-16.2); Lymphocytes # 1.8 K/mm3 (0.7-4.5); Lymphocytes % 18.6 % (10-50); Mean Corpuscular HGB Conc 34.4 g/dL (31.8-35.4); Mean Corpuscular Hemoglobin 29.9 pg (27.0-31.2); Mean Corpuscular Volume 86.9 fl (81-99); Mean Platelet Volume 7.2 fl (7.4-10.4); Monocytes # 0.5 K/mm3 (0.1-1.0); Monocytes % 5.2 % (1.7-9.3); Neutrophils # 7.5 K/mm3 (1.8-7.8); Neutrophils % 75.6 % (37.0-80.0); Platelet Count 290 K/mm3 (142-424); Red Blood Count 3.61 M/mm3 (4.20-5.40); Red Cell Distribution Width 15.1 % (11.5-17.5); White Blood Count 9.9 K/mm3 (4.8-10.8)
[2023-01-26 06:07] LABS: Chloride 107 mmol/L (98-107); Potassium 3.6 mmoL/L (3.5-5.1); Sodium 138 mmol/L (136-145)
[2023-01-26 06:10] LABS: Alanine Aminotransferase 119 U/L (12-78); Albumin/Globulin Ratio 1.2 (1.1-1.8); Alkaline Phosphatase 75 U/L (38-126); Anion Gap 7.6 mEq/L (5-15); Aspartate Amino Transferase 78 U/L (14-36); Bilirubin,Total 0.3 mg/dl (0.2-1.3); Blood Urea Nitrogen 6 mg/dl (7-17); Calcium 7.9 mg/dl (8.4-10.2); Carbon Dioxide 27 mmol/L (22.0-30.0); Creatinine Clearance Estimated 138 mL/min (50-200); Estimated Glomerular Filt Rate 90 ml/min (>60); GFR (African American) 109 ML/MIN (>60); Globulin 2.5 g/dL (1.3-3.2); Glucose 120 mg/dl (74-100); Total Protein,Serum 5.5 g/dl (6.3-8.2)
--- NOTE | 2023-01-26 06:25 | PC.NURSE ---
pt ambulated around unit 2 times.standby assist per staff.pt returned to room and sat in rocking chair.
--- NOTE | 2023-01-26 07:10 | PC.NURSE ---
report from jose rutherford RN
--- NOTE | 2023-01-26 07:15 | PC.NURSE ---
REPORT GIVEN TO CATRACHITARN
--- NOTE | 2023-01-26 07:33 | P.PNANES_ITS ---
[facility] Anesthesia Record Part II Anesthesia Record Part II Discharge Time: 10:50 Destination: Surgical Day Care (OP Surgery) PACU nurse assessment reviewed?: Yes Patient Condition:: Good Anesthesia Complications:: None Swallowing reflex intact?: Yes Cyanosis?: No Blood Pressure: 119/74 Pulse Rate: 65 Temperature: 97.4 F Mental Status: Alert & Oriented Pain level:: 0 Nausea and/or vomitting:: None Intake, IV Amount: 0
[2023-01-26 07:34] VITALS: BP 119/74; PULSE 65; TEMP 36.3
[2023-01-26 07:45] VITALS: BP 117/67; PULSE 89; RESP 18; TEMP 36.7; O2SAT 95
--- NOTE | 2023-01-26 07:51 | PC.NURSE ---
DR CAUSEY AT BEDSIDE. REPORT GIVEN.
--- NOTE | 2023-01-26 08:16 | EXP.DC.SUM ---
General Admission date:: 01/25/23 Discharge date: 01/26/23 HPI HPI HPI: POD # 1 s/p TLH, BSO Resting comfortably in bed. Pain is controlled. No vaginal bleeding. Voiding without difficulty and passing flatus. Tolerating regular diet. Denies fever/chills, chest pain and shortness of breath. No dizziness/lightheadedness or lower extremity swelling. Hospital Course Hospital Course Hospital Course: Ms Tatyana Isaac is a 47 yo P2002 who presented to [facility] for scheduled surgery.. She complains of lower pelvic pressure/pain and brown/escobedo discharge since hysteroscopy D&C, endometrial ablation 11/11/22. Prior to endometrial ablation she was having heavy, regular periods with associated fatigue and history of anemia. History of x 2 and tubal ligation. She requests definitive surgical intervention with hysterectomy. She underwent total laparoscopic hysterectomy, bilateral salpingo oophorectomy on 01/25/23. She did well postoperatively. She received Delestrogen 20 mg IM x 1 dose. Pain controlled with medication. Voiding without difficulty and passing flatus. Tolerating regular diet. Vital signs stable, afebrile. Heart regular rate and rhythm. Lungs clear to auscultation. Abdomen soft, normal BS, appropriate mild tenderness to palpation. Incisions clean/dry/intact. No lower extremity swelling or calf tenderness. Ambulating well ad maureen. Normal hospital course. She was discharged to home on POD # 1 with instructions to follow-up in the office in 2 weeks. Exam Data for Last 24 hours Vital signs and Labs for Last 24 Hours: Temp Pulse Resp BP Pulse Ox 98.1 F 89 18 117/67 95 01/26/23 07:45 01/26/23 07:45 01/26/23 07:45 01/26/23 07:45 01/26/23 07:45 Laboratory Results - last 24 hr 01/26/23 05:45: WBC 9.9, RBC 3.61 L, Hgb 10.8 L, Hct 31.4 L, MCV 86.9, MCH 29.9, MCHC 34.4, RDW 15.1, Plt Count 290 D, MPV 7.2 L, Neut % (Auto) 75.6, Lymph % (Auto) 18.6, Storey % (Auto) 5.2, Eos % (Auto) 0.4, Baso % (Auto) 0.3, Neut # (Auto) 7.5, Lymph # (Auto) 1.8, Storey # (Auto) 0.5, Eos # (Auto) 0.0, Baso # (Auto) 0.0 01/26/23 05:45: Sodium 138, Potassium 3.6, Chloride 107, Carbon Dioxide 27, Anion Gap 7.6, BUN 6 L, Creatinine 0.70, Estimated Creat Clear 138, Estimated GFR 90, Est GFR ( Amer) 109, Glucose 120 H, Calcium 7.9 L, Total Bilirubin 0.3, AST 78 H, ALT 119 H, Alkaline Phosphatase 75, Total Protein 5.5 L, Albumin 3.0 L, Globulin 2.5, Albumin/Globulin Ratio 1.2 I & O for Last 24 hours: Intake & Output 01/23/23 01/24/23 01/25/23 01/26/23 23:59 23:59 23:59 23:59 Intake Total 1500 / 1500 0 / 0 Output Total 2200 / 2200 800 / 800 Balance -700 / -700 -800 / -800 Constitutional Constitutional: no acute distress *Routine HEENT Exam Head: Present normocephalic and atraumatic Eye: Absent conjunctivae pink ENT: Present mucous membranes moist *Routine Neck Exam Neck: Present full ROM *Routine Respiratory Exam Respiratory: Present CTA bilaterally and normal respiratory effort *Routine Cardiovascular Exam Cardiovascular: Present RRR *Routine Abdominal Exam Abdominal: Present soft, normoactive bowel sounds and tenderness (mild appropriate tenderness to palpation postoperatively); Absent distended *Routine Rectal Exam Patient deferred: visual exam *Routine Exam Patient deferred: external exam *Routine Extremities Exam Extremities: Present full ROM; Absent edema or calf tenderness *Routine Neurological Exam Neurological: Present alert, oriented X3 and moving all extremities Routine Psychiatric Exam Psychiatric: Present normal affect and cooperative Results Data Completed and Pending Labs on day of discharge: Labs from last 24 hours 01/26/23 01/26/23 05:45 05:45 WBC 9.9 RBC 3.61 L Hgb 10.8 L Hct 31.4 L MCV 86.9 MCH 29.9 MCHC 34.4 RDW 15.1 Plt Count 290 D MPV 7.2 L Neut % (Auto) 75.6 Lymph % (Auto) 18.6 Storey % (Auto) 5.2 Eos % (Auto) 0.4 Baso % (Auto) 0.3 Neut # (Auto) 7.5 Lymp
== END 2023-01-26 09:55 | disposition home or self-care (01) ==
LOC: OB 11:52
PROVIDERS: Admitting Provider Obstetrics & Gynecology; PCP Family Medicine; Visit Provider Obstetrics & Gynecology
PROC: (CPT 58571; principal; 2023-01-25 07:30)
DX: R10.2 Pelvic and perineal pain (principal); N93.8 Other specified abnormal uterine and vaginal bleeding
CPT/HCPCS: 58571; 36415; 80053; 85025; 96374; C9803; G0378; J2405; U0003; U0005

== ENCOUNTER 2023-01-29 23:51 | Inpatient (IN) | payer OTHER, SELFPAY ==
--- NOTE | 2023-01-29 23:48 | ECG_ITS ---
APPROVED REPORT Exam: Resting ECG HR:108 bpm ECG Measurements Heart Rate 108 AXES WY 134 P 58 QRSd 81 QRS 66 QT 318 T 93 QTc 382 Conclusion SINUS TACHYCARDIA NONSPECIFIC ST & T-WAVE ABNORMALITY ABNORMAL RHYTHM ECG UNCONFIRMED REPORT Electronically signed by : Jerry Brand MD 01/30/2023 15:30:04
[2023-01-29 23:51] VITALS: BP 133/98; PULSE 110; RESP 23; TEMP 36.5; O2SAT 98; BMI 30.7
[2023-01-29 23:54] VITALS: PULSE 110
--- NOTE | 2023-01-29 23:57 | PC.NURSE ---
Dr. Millard at BS
[2023-01-30] VITALS (35 sets, daily range): BP systolic 95–142; BP diastolic 57–97; PULSE 77–120; RESP 14–25; TEMP 36.5–36.9; O2SAT 85–99; BMI 29.5
--- NOTE | 2023-01-30 | PC.NURSE ---
Addendum entered by Suly Yañez, EMT 01/30/23 00:02: CXR order changed to portable Original Note: Pt gone to RAD via wheelchair
--- NOTE | 2023-01-30 00:01 | XR_ITS ---
PROCEDURE INFORMATION: Exam: XR Chest Exam date and time: 01/30/2023 12:17 AM Age: 47 years old Clinical indication: Pain; Chest pressure; Additional info: Cp TECHNIQUE: Imaging protocol: Radiologic exam of the chest. Views: 1 view. COMPARISON: CR XR CHEST 2V 10/06/2022 12:35 PM FINDINGS: Lungs: Unremarkable. No consolidation. Pleural spaces: Unremarkable. No pleural effusion. No pneumothorax. Heart/Mediastinum: Unremarkable. No cardiomegaly. Bones/joints: Unremarkable. IMPRESSION: No acute findings.
--- NOTE | 2023-01-30 00:03 | PC.NURSE ---
RAD at for portable CXR
[2023-01-30 00:05] LABS: Chloride 99 mmol/L (98-107); Potassium 3.4 mmoL/L (3.5-5.1); Sodium 137 mmol/L (136-145)
--- NOTE | 2023-01-30 00:06 | HMH.EDGENADL ---
Discharge Plan Disposition Patient Disposition: Admitted As Inpatient Condition: Fair Chief Complaint: Chest Pain Prescriptions Prescriptions: No Action albuterol sulfate [ProAir HFA] 90 mcg/actuation HFA aerosol inhaler 2 puff INHALATION BIDP PRN (Reason: Shortness Of Breath) Qulipta 60 mg tablet 60 mg PO DAILY Qty: 30 5RF Linzess 72 mcg capsule 72 mcg PO DAILY Nurtec ODT 75 mg tablet,disintegrating 75 mg PO Q48H ibuprofen 400 mg Tablet 800 mg PO Q8H Qty: 40 0RF oxycodone 5 mg Tablet 5 - 10 mg PO Q6HP PRN (Reason: Moderate To Severe Pain) Qty: 20 0RF Referrals Follow up/Referrals: Billie De MD [Primary Care Provider] - See instructions Clinical Impressions Clinical Impression: Acute non-ST elevation myocardial infarction (NSTEMI) Discharge ED Provider: Vic Millard General Adult HPI General Chief complaint: Chest Pain Stated complaint: Chest Pain Time Seen by Provider: 01/29/23 23:54 Mode of Arrival: Wheelchair Source of Information: Patient Limitations: No Limitations Description of Symptoms (Recalled from ER Triage Doc. by RN): 47 F presents with severe chest pressure and pain that started at 1800 after a severe vomiting episode. Patient reports she had a hysterectomy at [facility] on Wednesday. Intermittent nausea and pain since; however this evening is when it became worse. Patient adds that she had an AL last year. History of Present Illness HPI narrative: 47yo F presents to the ER secondary to chest pain. Patient reports she underwent hysterectomy on Wednesday at this facility. She had severe pain with nausea and decreased activity since that time. Today at 6 PM she developed vomiting. Then at 7 PM she developed substernal and left-sided chest pain. No radiation. No shortness of breath. No diaphoresis. Reports she had an AL following brain aneurysm surgery last year. Underwent heart catheterization but no significant obstruction found, no stents placed. Reports she was on multiple medication but felt no better taking them and therefore took herself off all of them in November. Related Data Home Medications Medication Instructions Recorded Confirmed albuterol sulfate 90 mcg/actuation 2 puff inhalation BIDP PRN 01/05/22 01/25/23 aerosol inhaler (ProAir HFA) Shortness Of Breath linaclotide 72 mcg capsule 72 mcg PO DAILY CONSTIPATION 09/14/22 01/25/23 (Linzesjessica) rimegepant 75 mg disintegrating 75 mg PO Q48H MIGRAINE 01/25/23 01/25/23 tablet (Nurtec ODT) Previous Rx's Medication Instructions Recorded Qulipta 60 mg tablet (atogepant) 60 mg PO DAILY episodic migraine 11/16/22 #30 tabs ibuprofen 400 mg tablet 800 mg PO Q8H #40 tabs 01/26/23 oxycodone 5 mg tablet 5 - 10 mg PO Q6HP PRN Moderate To 01/26/23 Severe Pain #20 tabs Allergies Allergy/AdvReac Type Severity Reaction Status Date / Time fentanyl Allergy Severe Anxiety Verified 01/20/23 16:06 ciprofloxacin [From Cipro] Allergy Mild Verified 01/20/23 16:06 morphine Allergy Verified 01/20/23 16:06 PFSH PFSH Disclaimer: The information contained in this section may have been updated after the patient was seen, as this information can be updated by other users. Medical History Abnormal uterine bleeding Angina pectoris syndrome Anxiety Asthma Brain aneurysm Depression Dizziness Dyspnea Endometriosis H/O chronic meningitis Headache History of anemia History of heart attack History of meningitis HLD (hyperlipidemia) HTN (hypertension) Irritable bowel syndrome (IBS) Menorrhagia Migraine Myocardial infarct Pelvic pain Sacroiliitis Surgical History H/O cerebral aneurysm repair H/O tubal ligation History of arthroscopy of right shoulder History of cholecystectomy History of endometrial ablation Hx of cholecystectomy S/P laparoscopic hysterectomy Family History (Reviewed
[2023-01-30 00:08] LABS: Blood Urea Nitrogen 8 mg/dl (7-17); Calcium 9.3 mg/dl (8.4-10.2); Creatinine Clearance Estimated 121 mL/min (50-200); Estimated Glomerular Filt Rate 78 ml/min (>60); GFR (African American) 94 ML/MIN (>60); Glucose 170 mg/dl (74-100)
[2023-01-30 00:09] LABS: Basophils # 0.1 K/mm3 (0-0.2); Basophils % 0.8 % (0.1-2.0); Eosinophils # 0.4 K/mm3 (0.0-0.4); Eosinophils % 3.5 % (0.1-12.0); Hemoglobin 14.5 g/dL (12.2-16.2); Monocytes # 0.7 K/mm3 (0.1-1.0); Red Cell Distribution Width 14.5 % (11.5-17.5)
[2023-01-30 00:14] LABS: Hematocrit 43.4 % (37.0-47.0); Lymphocytes # 3.1 K/mm3 (0.7-4.5); Lymphocytes % 25.7 % (10-50); Mean Corpuscular HGB Conc 33.3 g/dL (31.8-35.4); Mean Corpuscular Volume 86.9 fl (81-99); Mean Platelet Volume 7.5 fl (7.4-10.4); Monocytes % 5.6 % (1.7-9.3); Neutrophils # 7.7 K/mm3 (1.8-7.8); Neutrophils % 64.5 % (37.0-80.0); Platelet Count 497 K/mm3 (142-424)
[2023-01-30 00:24] LABS: Troponin I 0.61 ng/ml (0.00-0.034)
[2023-01-30 00:26] LABS: Alanine Aminotransferase 74 U/L (12-78); Albumin Level 3.9 g/dl (3.5-5.0); Alkaline Phosphatase 220 U/L (38-126); Aspartate Amino Transferase 39 U/L (14-36); Bilirubin,Direct 0.2 mg/dl (0.0-0.4); Bilirubin,Indirect 0.6 mg/dL (0.0-0.9); Bilirubin,Total 0.8 mg/dl (0.2-1.3); Bilirubin,Unconjugated 0.5 mg/dL (0.0-1.1); Total Protein,Serum 7.1 g/dl (6.3-8.2)
--- NOTE | 2023-01-30 00:27 | PC.NURSE ---
notified Md of critical trop 0.61
--- NOTE | 2023-01-30 00:29 | PC.NURSE ---
Rounded on pt. She advised pain 05/13. RN notified.
[2023-01-30 00:39] LABS: Coronavirus 19, PCR Not Detected (NotDetected); Influenza A, PCR Not Detected (NotDetected); Influenza B, PCR Not Detected (NotDetected)
[2023-01-30 00:43] LABS: Anion Gap 18.4 mEq/L (5-15); Carbon Dioxide 23 mmol/L (22.0-30.0)
[2023-01-30 00:45] LABS: INR 0.95 (0.9-1.1); Prothrombin Time 10.3 seconds (10.1-12.5)
--- NOTE | 2023-01-30 00:48 | PC.NURSE ---
Paged on-call cardiology at this time
--- NOTE | 2023-01-30 00:49 | PC.NURSE ---
s/w Dr. Mauricio (on-call cardiology) for consult. He would like to use Nitro gtt
--- NOTE | 2023-01-30 00:53 | PC.NURSE ---
Dr. Millard at BS to update pt/visitor
--- NOTE | 2023-01-30 00:58 | PC.NURSE ---
Dr. Millard s/w Guerita Naylor, hospitalist for admission.
--- NOTE | 2023-01-30 01:03 | PC.NURSE ---
Hospitalist, Guerita at BS
--- NOTE | 2023-01-30 01:08 | PC.NURSE ---
Patient admitted to 219 stepdown, with admitting dx of chest pain with elevated trop, to service of Dr. Hernández.
--- NOTE | 2023-01-30 01:17 | PC.NURSE ---
nitro drip increased to 10mcg/min
--- NOTE | 2023-01-30 01:22 | EXP.HP ---
History of Present Illness *Admission Date: 01/30/23 *Reason for visit:: Chest pain *History of present illness: This is a 47-year-old female with a past medical history of prior brain aneurysm with surgical fixation, chronic pain who presents emergency department today with complaints of chest pain. She reports approximately 1 year ago during her brain surgery, experiencing a heart attack while in recovery. At that time they did an arteriogram but she did not require PCI. She reports hysterectomy this past Wednesday and developed chest pain this evening that was similar to the pain that she had during her prior surgery. She reports a squeezing type pain under her left armpit with pressure-like pain in her midsternal region. She denies any palpitations but states that her heart rate is elevated. She is tearful on my exam stating that she is in extreme pain. She denies any fever, cough, congestion. She denies any smoking history but does admit to THC liquid ingestion for stress management. Emergency department work-up significant for elevated troponin at 0.61. EKG without ischemia. Mild leukocytosis with a white count of 12. No obvious source of infection. Given patient's elevated troponin, cardiology was consulted and recommends heparin drip, nitro titrated for pain and admission to the hospital. She is admitted to the hospital service for further evaluation management. [facility] Disclaimer: The information contained in this section may have been updated after the patient was seen, as this information can be updated by other users. Medical History Abnormal uterine bleeding Angina pectoris syndrome Anxiety Asthma Brain aneurysm Depression Dizziness Dyspnea Endometriosis H/O chronic meningitis Headache History of anemia History of heart attack History of meningitis HLD (hyperlipidemia) HTN (hypertension) Irritable bowel syndrome (IBS) Menorrhagia Migraine Myocardial infarct Pelvic pain Sacroiliitis Surgical History H/O cerebral aneurysm repair H/O tubal ligation History of arthroscopy of right shoulder History of cholecystectomy History of endometrial ablation Hx of cholecystectomy S/P laparoscopic hysterectomy Family History Mother Ovarian cancer Family history of stroke Grandmother Lung cancer Other Family history of diabetes mellitus type II Family history of myocardial infarction No significant family history Social History Smoking Status: Current every day smoker alcohol intake: never substance use type: denies use current occupational status: employed Travel in the last 8 weeks: None household members: significant other and children housing: house lives independently: Yes marital status: education level: other current occupational exposures/hazards: No caffeine: Yes do you feel safe at home: Yes victim of physical abuse: No victim of emotional abuse: No victim of sexual abuse: No Review of Systems Review of Systems Review of systems:: pertinent systems reviewed and negative unless documented below *Cardiovascular Cardiovascular: Reports as per HPI *Respiratory Respiratory: Reports as per HPI Meds Home Medications and Allergies Home Medications Medication Instructions Recorded Confirmed Type albuterol sulfate 90 mcg/actuation 2 puff inhalation BIDP PRN 01/05/22 01/25/23 History aerosol inhaler (ProAir HFA) Shortness Of Breath linaclotide 72 mcg capsule 72 mcg PO DAILY CONSTIPATION 09/14/22 01/25/23 History (Micaelazess) Qulipta 60 mg tablet (atogepant) 60 mg PO DAILY episodic migraine 11/16/22 01/25/23 Rx #30 tabs rimegepant 75 mg disintegrating 75 mg PO Q48H MIGRAINE 01/25/23 01/25/23 History tablet (Nurtec ODT) ibuprofen 4
--- NOTE | 2023-01-30 01:57 | PC.NURSE ---
pt admitted to 219 from ER via stretcher, nitro drip going at 10mcg/min and heparin drip at 1000units/hr
[2023-01-30 02:06] LABS: D-Dimer 1.55 ug/mL (0.0-0.5)
[2023-01-30 03:30] LABS: Troponin I 1.49 ng/ml (0.00-0.034)
--- NOTE | 2023-01-30 04:18 | PC.NURSE ---
pt's oxygen saturations 85-86% on room air, placed pt on 2LNC and sats 89%, waited a few minutes and sats remained 89% on 2LNC so increased to 4LNC and pt's sats 93%
--- NOTE | 2023-01-30 05:16 | PC.NURSE ---
0330-notified soniya briggs of pt's critical troponin of 1.49, no new orders at this time
--- NOTE | 2023-01-30 06:46 | PC.NURSE ---
pt's heparin drip at 1000units/hr aPTT to be drawn at 0700, nitro drip at 5mcg/min due to lower bp's since arrival to 219
[2023-01-30 07:55] LABS: PTT Heparin (inpatient only) 29.9 Seconds (23.6-34.0)
--- NOTE | 2023-01-30 07:59 | PC.NURSE ---
SPOKE WITH [facility] REGARDING PTT RESULTS. HEPARIN 4000 UNIT BOLUS ORDERED AND GTT TO BE INCREASED TO 1300 UNIT/HR.
[2023-01-30 08:38] LABS: Basophils # 0.1 K/mm3 (0-0.2); Basophils % 0.6 % (0.1-2.0); Eosinophils # 0.3 K/mm3 (0.0-0.4); Eosinophils % 2.8 % (0.1-12.0); Lymphocytes % 26.8 % (10-50); Mean Corpuscular Hemoglobin 28.8 pg (27.0-31.2); Mean Corpuscular Volume 87.3 fl (81-99); Mean Platelet Volume 8.3 fl (7.4-10.4); Monocytes # 0.6 K/mm3 (0.1-1.0); Monocytes % 5.5 % (1.7-9.3); Neutrophils # 7.3 K/mm3 (1.8-7.8); Neutrophils % 64.4 % (37.0-80.0); Platelet Count 476 K/mm3 (142-424); Red Blood Count 4.24 M/mm3 (4.20-5.40); Red Cell Distribution Width 14.8 % (11.5-17.5); White Blood Count 11.4 K/mm3 (4.8-10.8)
[2023-01-30 08:39] LABS: Chloride 97 mmol/L (98-107); Potassium 3.7 mmoL/L (3.5-5.1); Sodium 135 mmol/L (136-145)
[2023-01-30 08:41] LABS: Blood Urea Nitrogen 6 mg/dl (7-17); Creatinine Clearance Estimated 156 mL/min (50-200); Estimated Glomerular Filt Rate 108 ml/min (>60); GFR (African American) 131 ML/MIN (>60)
[2023-01-30 08:42] LABS: Anion Gap 16.7 mEq/L (5-15); Calcium 7.8 mg/dl (8.4-10.2); Carbon Dioxide 25 mmol/L (22.0-30.0); Chol/HDL Ratio 5.7 (1-3.5); Cholesterol 171 mg/dl (140-200); Glucose 127 mg/dl (74-100); HDL Cholesterol 30 mg/dl (40-60); Triglycerides 309 mg/dl (30-150); VLDL Cholesterol 62 mg/dL (0-40)
[2023-01-30 08:47] LABS: Hemoglobin 12.2 g/dL (12.2-16.2)
[2023-01-30 08:53] LABS: Direct LDL Cholesterol 92.26 mg/dL (100-129)
--- NOTE | 2023-01-30 09:15 | PC.NURSE ---
0915-NITRO GTT INCREASED TO 7.5MCG PER VIVIANE
--- NOTE | 2023-01-30 09:24 | PC.NURSE ---
0915 Dr Germain called and requested the cath team for heart cath at 1030. 0917 Dayday Estevez returned call 09 Billie Viera returned call 09 A Fei returned call
[2023-01-30 09:38] LABS: Troponin I 1.27 ng/ml (0.00-0.034)
--- NOTE | 2023-01-30 09:38 | PC.NURSE ---
Lab called with critical lab value troponin 1.27. Dr Hernández notified.
--- NOTE | 2023-01-30 10:00 | IR_ITS ---
APPROVED REPORT Patient Location: Inpatient [facility] Operator: GIORGIO Krishnan RT (R) PROCEDURES Left heart catheterization with left ventriculogram Conscious sedation Right radial artery access INDICATION Admitted with chest pain, Abnormal EKG suggestive of lateral ischemia, Elevated troponin suggestive of acute coronary syndrome, Informed consent was obtained prior to the procedure. COMPLICATIONS None Estimated Blood Loss: Less than 10 ML TECHNIQUE One percent lidocaine used to anesthetize the right anterior aspect of the wrist. The right radial artery was accessed via the Seldinger technique. A 6 Khmer sheath was placed in the right radial artery. 300 mcg of nitroglycerin and 3000 U Heparin were given through the arterial sheath. The papa catheter was also used to perform left heart catheterization and selective coronary angiogram. Left ventriculogram was performed with pigtail catheter. At the end of the procedure the sheath was removed good hemostasis was achieved using Traclet band, patient was transferred to the postop holding area in stable condition. ANGIOGRAPHIC RESULTS The left main artery Patent The left anterior descending artery Patent The circumflex artery Patent The right coronary artery Patent The JARAMILLO ventriculogram reveals 35 to 40% EF. 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 Nunda is moving well but mid ventricular levin are hypokinetic. Normal coronary arteries Very high left ventricular end-diastolic pressure PLAN 1. Routine postop care 2. GDMT for CHF -Toprol-XL, Cozaar, Aldactone and Farxiga 3. IV diuretic for now Electronically signed by : Heather Sales, 01/30/2023 12:53:29
--- NOTE | 2023-01-30 11:11 | HMH.PHAHEP ---
[facility] Heparin Dosing Demographic Data Admission date:: 01/30/23 Date: 01/30/23 Time: 11:12 Allergies Allergy/AdvReac Type Severity Reaction Status Date / Time fentanyl Allergy Severe Anxiety Verified 01/20/23 16:06 ciprofloxacin [From Cipro] Allergy Mild Verified 01/20/23 16:06 morphine Allergy Verified 01/20/23 16:06 Height: 1.68 m Weight: 83.325 kg Indication Medication therapy:: Heparin Current Indications:: ACS (LOW DOSE PROTOCOL) Current Active Problems (Updated 01/30/23 @ 13:00 by Heather Sales MD) Chest pain (Acute) Tachycardia (Acute) Abnormal EKG (Acute) Elevated troponin (Acute) Acute non-ST elevation myocardial infarction (NSTEMI) (Acute) CAD (coronary artery disease) (Chronic) CVA?: No Bleeding problem?: No Kidney disease?: No LA?: Yes Additional History:: CAD Desired PTT range:: 50-75 seconds Labs Anticoagulation Lab Results:: 01/29/23 01/30/23 23:52 08:10 Hgb 14.5 12.2 D Hct 43.4 37.0 Plt Count 497 H D 476 H Monitoring Dose Monitor 1: Date: 01/30/23 Time: 01:00 PTT Result:: NO BASELINE PTT ORDERED, INCIDENT REPORT SUBMITTED. Infusion Rate:: START HEPARIN DRIP AT 1000 UNITS/HOUR = 20 ML/HOUR AND BOLUS HEPARIN 4000 UNITS IV ONCE. Dose Monitor 2: Date: 01/30/23 Time: 06:40 PTT Result:: 29.9 SECONDS Infusion Rate:: HEPARIN DRIP RATE INCREASED TO 1300 UNITS/HOUR = 26 ML/HOUR AND BOLUS HEPARIN 4000 UNITS IV ONCE. Core Measures Is INR > or = 2 at discharge?: No Most Recent Labs:: Laboratory Results - last 24 hr 01/29/23 23:52: Troponin I 0.61 H 01/29/23 23:52: WBC 12.0 H, RBC 5.00, Hgb 14.5, Hct 43.4, MCV 86.9, MCH 29.0, MCHC 33.3, RDW 14.5, Plt Count 497 H D, MPV 7.5, Neut % (Auto) 64.5, Lymph % (Auto) 25.7, Dolores % (Auto) 5.6, Eos % (Auto) 3.5, Baso % (Auto) 0.8, Neut # (Auto) 7.7, Lymph # (Auto) 3.1, Dolores # (Auto) 0.7, Eos # (Auto) 0.4, Baso # (Auto) 0.1 01/29/23 23:52: Sodium 137, Potassium 3.4 L, Chloride 99, Carbon Dioxide 23, Anion Gap 18.4 H, BUN 8, Creatinine 0.80, Estimated Creat Clear 121, Estimated GFR 78, Est GFR ( Amer) 94, Glucose 170 H, Calcium 9.3 01/29/23 23:52: PT 10.3, INR 0.95 01/29/23 23:52: D-Dimer 1.55 H 01/30/23 00:00: Total Bilirubin 0.8, Direct Bilirubin 0.2, Conjugated Bilirubin 0.0, Indirect Bilirubin 0.6, Unconjugated Bilirubin 0.5, AST 39 H, ALT 74, Alkaline Phosphatase 220 H, Total Protein 7.1 D, Albumin 3.9 01/30/23 00:29: SARS-CoV-2 (PCR) Not detected, Influenza A Untype (PCR) Not detected, Influenza Type B (PCR) Not detected 01/30/23 02:55: Troponin I 1.49 H 01/30/23 06:40: Troponin I 1.27 H 01/30/23 06:40: APTT 29.9 01/30/23 08:10: WBC 11.4 H, RBC 4.24, Hgb 12.2 D, Hct 37.0, MCV 87.3, MCH 28.8, MCHC 33.0, RDW 14.8, Plt Count 476 H, MPV 8.3, Neut % (Auto) 64.4, Lymph % (Auto) 26.8, Dolores % (Auto) 5.5, Eos % (Auto) 2.8, Baso % (Auto) 0.6, Neut # (Auto) 7.3, Lymph # (Auto) 3.0, Dolores # (Auto) 0.6, Eos # (Auto) 0.3, Baso # (Auto) 0.1 01/30/23 08:10: Sodium 135 L, Potassium 3.7, Chloride 97 L, Carbon Dioxide 25, Anion Gap 16.7 H, BUN 6 L, Creatinine 0.60 D, Estimated Creat Clear 156, Estimated GFR 108, Est GFR ( Amer) 131 D, Glucose 127 H D, Calcium 7.8 L, Triglycerides 309 H, Cholesterol 171, LDL Cholesterol Direct 92.26 L, VLDL Cholesterol 62 H, HDL Cholesterol 30 L, Cholesterol/HDL Ratio 5.7 H If INR was < than 2.0 why was therapy stopped?: CHANGED TO THERAPEUTIC LOVENOX PER DR PAN VERBAL ORDER. Were Heparin and Warfarin started on the same day?: No If not, why?: CHANGED TO THERAPEUTIC LOVENOX PER DR PAN VERBAL ORDER.
--- NOTE | 2023-01-30 12:55 | EXP.CARD.CON ---
History of Present Illness History of Present Illness Consult date: 01/30/23 Consult reason: chest pain Chief complaint: Chest pain History of present illness: 47-year-old female with a past medical history of brain aneurysm, status post coiling and chronic pain who presents emergency department chest pain. Patient had brain aneurysm coiling a year ago and had chest pain postoperatively. She was taken to [facility] and was found to have normal coronaries.? Stress-induced cardiomyopathy Patient had hysterectomy this past Wednesday and developed chest pain this evening that was similar to the pain that she had during her prior brain aneurysm coiling procedure. She reports a squeezing type pain under her left armpit with pressure-like pain in her midsternal region.? Troponin 0.61 in emergency room. EKG showed sinus tachycardia with nonspecific changes in lateral leads. Being treated heparin drip and nitro drip for non-STEMI. I was consulted for further management. [facility] Disclaimer: The information contained in this section may have been updated after the patient was seen, as this information can be updated by other users. Medical History (Updated 01/30/23 @ 13:00 by Heather Sales MD) Abnormal uterine bleeding Angina pectoris syndrome Anxiety Asthma Brain aneurysm Brain aneurysm Depression Dizziness Dyspnea Endometriosis H/O chronic meningitis Headache History of anemia History of heart attack History of meningitis HLD (hyperlipidemia) HTN (hypertension) Irritable bowel syndrome (IBS) Menorrhagia Migraine Myocardial infarct Pelvic pain Sacroiliitis Surgical History H/O cerebral aneurysm repair H/O tubal ligation History of arthroscopy of right shoulder History of cholecystectomy History of endometrial ablation Hx of cholecystectomy S/P laparoscopic hysterectomy Family History Mother Ovarian cancer Family history of stroke Grandmother Lung cancer Other Family history of diabetes mellitus type II Family history of myocardial infarction No significant family history Social History Smoking Status: Current every day smoker alcohol intake: never substance use type: denies use current occupational status: employed Travel in the last 8 weeks: None household members: significant other and children housing: house lives independently: Yes marital status: education level: other current occupational exposures/hazards: No caffeine: Yes do you feel safe at home: Yes victim of physical abuse: No victim of emotional abuse: No victim of sexual abuse: No Review of Systems Review of Systems Review of systems:: pertinent systems reviewed and negative unless documented below *Cardiovascular Cardiovascular: Reports as per HPI *Respiratory Respiratory: Reports as per HPI Exam Data for Last 24 hours Vital signs and Labs for Last 24 Hours: Temp Pulse Resp BP Pulse Ox 98.4 F 112 H 20 136/97 H 89 L 01/30/23 11:19 01/30/23 12:51 01/30/23 12:51 01/30/23 12:51 01/30/23 12:51 Laboratory Results - last 24 hr 01/29/23 23:52: Troponin I 0.61 H 01/29/23 23:52: WBC 12.0 H, RBC 5.00, Hgb 14.5, Hct 43.4, MCV 86.9, MCH 29.0, MCHC 33.3, RDW 14.5, Plt Count 497 H D, MPV 7.5, Neut % (Auto) 64.5, Lymph % (Auto) 25.7, Hubbard % (Auto) 5.6, Eos % (Auto) 3.5, Baso % (Auto) 0.8, Neut # (Auto) 7.7, Lymph # (Auto) 3.1, Hubbard # (Auto) 0.7, Eos # (Auto) 0.4, Baso # (Auto) 0.1 01/29/23 23:52: Sodium 137, Potassium 3.4 L, Chloride 99, Carbon Dioxide 23, Anion Gap 18.4 H, BUN 8, Creatinine 0.80, Estimated Creat Clear 121, Estimated GFR 78, Est GFR ( Amer) 94, Glucose 170 H, Calcium 9.3 01/29/23 23:52: PT 10.3, INR 0.95 01/29/23 23:52: D-Dimer 1.55 H 01/30/23 00:00: Total Bilirubin 0.8, Direct Bilirubin 0.2, Conjugated Biliru
--- NOTE | 2023-01-30 13:00 | PC.NURSE ---
Called ER to pass along message to Dr Hernández about pt. Informed him pt is currently 88-89% on 6L simple mask after heart cath and cath was negative. Reprts pain and increased shortness of breath. Spoke with Cami EMERY. Asked her to ask him if pt needs a CTA ordered. She stated she would ask and get back with me.
[2023-01-30 13:01] LABS: CATHL Activated Clotting Time 143 SEC (74-125)
--- NOTE | 2023-01-30 13:15 | PC.NURSE ---
Called ER to check and see about update on what Dr Hernández said regarding CTA. Per Elda Hernández doesn't want one at this time and he will be up to see her shortly.
--- NOTE | 2023-01-30 13:17 | HMH.PHAINT1 ---
Pharmacy Intervention Comments: MEDICATION RECONCILIATION COMPLETE USING LIST FROM [facility] DISCHARGE (01/26/23) AND EXTERNAL PHARMACY FILL HISTORY.
--- NOTE | 2023-01-30 13:31 | PC.NURSE ---
SPOKE WITH HOOD IN PHARMACY REGARDING MISSED PTT DRAW THIS MORNING. PT WAS DOWN IN PRODUCE WEIGHER FOR PROCEDURE. PTT WILL BE RESCHEDULED FOR 1600 THIS AFTERNOON AND INFUSION RATE WILL REMAIN AT 1600 UNITS/HR. LAB MADE AWARE OF CHANGES.
--- NOTE | 2023-01-30 15:55 | PC.NURSE ---
assisted pt to restroom with standby assistance. tolerated well. steady gait noted. pt voided. assisted back to bed. hooked back up to ekg monitor tech. vitals cycling. call light within reach.
--- NOTE | 2023-01-30 16:19 | PC.NURSE ---
pt currently on 4L NC tolerating well.
--- NOTE | 2023-01-30 16:27 | PC.NURSE ---
started removing air out of radial band at 14:45. radial band removed at this time. telfa and tegaderm in place. cdi at this time. will continue to monitor.
[2023-01-30 16:50] LABS: PTT Heparin (inpatient only) 27.1 Seconds (23.6-34.0)
--- NOTE | 2023-01-30 17:22 | PC.NURSE ---
courtesy tech venancio: pt is lying in bed with no requests voiced at this time. call light is within reach.
[2023-01-31] VITALS (9 sets, daily range): BP systolic 93–110; BP diastolic 61–69; PULSE 82–100; RESP 14–26; TEMP 36.2–37.2; O2SAT 92–100; BMI 29.9
--- NOTE | 2023-01-31 06:59 | PC.NURSE ---
Pt titrated down to 1 L nc this am, tolerating well with sats in mid 90s. Left lower lobe diminished. Pt has remained in NSR on tele. No c/o voiced to staff t/o night. Family at bedside. Call light within reach.
[2023-01-31 07:37] LABS: Basophils % 0.4 % (0.1-2.0); Eosinophils # 0.3 K/mm3 (0.0-0.4); Eosinophils % 3.5 % (0.1-12.0); Hematocrit 35.9 % (37.0-47.0); Hemoglobin 12.3 g/dL (12.2-16.2); Lymphocytes # 2.3 K/mm3 (0.7-4.5); Lymphocytes % 23.3 % (10-50); Mean Corpuscular HGB Conc 34.3 g/dL (31.8-35.4); Mean Corpuscular Hemoglobin 29.1 pg (27.0-31.2); Mean Corpuscular Volume 84.9 fl (81-99); Mean Platelet Volume 7.4 fl (7.4-10.4); Monocytes # 0.7 K/mm3 (0.1-1.0); Monocytes % 7.5 % (1.7-9.3); Neutrophils # 6.5 K/mm3 (1.8-7.8); Neutrophils % 65.4 % (37.0-80.0); Platelet Count 458 K/mm3 (142-424); Red Blood Count 4.23 M/mm3 (4.20-5.40); Red Cell Distribution Width 14.6 % (11.5-17.5); White Blood Count 9.9 K/mm3 (4.8-10.8)
[2023-01-31 07:42] LABS: Chloride 97 mmol/L (98-107); Sodium 132 mmol/L (136-145)
[2023-01-31 07:43] LABS: Potassium 3.2 mmoL/L (3.5-5.1)
[2023-01-31 07:45] LABS: Alanine Aminotransferase 43 U/L (12-78); Albumin Level 3.5 g/dl (3.5-5.0); Alkaline Phosphatase 180 U/L (38-126); Anion Gap 8.2 mEq/L (5-15); Aspartate Amino Transferase 36 U/L (14-36); Bilirubin,Total 0.7 mg/dl (0.2-1.3); Blood Urea Nitrogen 4 mg/dl (7-17); Carbon Dioxide 30 mmol/L (22.0-30.0); Creatinine Clearance Estimated 135 mL/min (50-200); Estimated Glomerular Filt Rate 90 ml/min (>60); GFR (African American) 109 ML/MIN (>60)
[2023-01-31 07:46] LABS: Calcium 8.3 mg/dl (8.4-10.2); Globulin 3.5 g/dL (1.3-3.2); Glucose 140 mg/dl (74-100); Magnesium 1.8 mg/dl (1.6-2.3)
--- NOTE | 2023-01-31 12:34 | EXP.ACUTE.PN ---
Subjective *Date: 01/31/23 *Time: 12:37 Interval history: No events overnight. Monitored on telemetry. Patient's blood pressure well controlled. Diuresed well with -1.5 L in the past 24 hours. Tolerating p.o. intake. Still is not had a bowel movement. Weaned to 1 L oxygen by morning rounds, saturations greater 90%. Patient states she is overall feeling better. Improvement in chest pain. No pain meds in over 12 hours. Denies nausea or vomiting. Medical Exam Vital signs and Labs for Last 24 Hours: Vital Signs Temp Pulse Pulse Resp BP Pulse Ox 01/31/23 12:00 100 H 01/31/23 12:00 98.6 F 91 H 17 101/69 L 96 01/31/23 08:00 93 H 01/31/23 08:00 92 L 01/31/23 08:00 99.0 F 01/31/23 04:00 97 01/31/23 06:00 86 22 108/68 L 97 01/31/23 04:00 98.1 F 91 H 18 97/65 L 98 01/31/23 04:00 90 01/31/23 00:00 90 01/31/23 02:00 92 H 14 93/61 L 97 01/31/23 00:00 98.6 F 94 H 26 H 97/65 L 96 01/30/23 20:00 100 H 01/30/23 22:00 98 H 22 104/78 L 97 01/30/23 20:00 92 L 01/30/23 20:00 95 H 17 98/70 L 92 L 01/30/23 19:50 98.3 F 95 H 18 100/68 L 91 L 01/30/23 18:54 109 H 16 109/87 L 94 L 01/30/23 17:50 91 H 16 113/69 93 L 01/30/23 16:50 77 18 115/57 L 95 01/30/23 17:00 95 01/30/23 16:26 102 H 01/30/23 15:50 105 H 18 104/76 L 94 L 01/30/23 15:20 99 H 18 95/72 L 93 L 01/30/23 15:34 98.1 F 01/30/23 14:50 100 H 19 98/71 L 93 L 01/30/23 14:20 104 H 19 104/76 L 97 01/30/23 13:50 109 H 19 106/79 L 97 01/30/23 13:35 116 H 18 110/85 95 01/30/23 13:20 115 H 18 122/86 90 L 01/30/23 13:05 120 H 16 117/84 85 L 01/30/23 12:51 112 H 20 136/97 H 89 L 01/30/23 12:45 112 H 20 135/95 H 88 L 01/30/23 12:37 115 H 110 H 20 142/90 H 90 L Intake and Output 01/30/23 01/31/23 01/31/23 23:59 07:59 15:59 Intake Total 240 / 240 Output Total 1300 / 1949 0 / 0 Balance -1300 / 1950 0 / 240 240 / 240 Intake: Intake, Oral Amount 240 / 240 Output: Output, Urine Amount 1299 / 1949 0 / 0 Other: Number of Unmeasured Voids 1 1 Weight 84.504 kg Patient Weight 01/31/23 23:59 Weight 84.504 kg Laboratory Results - last 24 hr 01/30/23 12:01: Activated Clotting Time 143 H 01/30/23 15:55: APTT 27.1 01/31/23 07:04: WBC 9.9, RBC 4.23, Hgb 12.3, Hct 35.9 L, MCV 84.9, MCH 29.1, MCHC 34.3, RDW 14.6, Plt Count 458 H, MPV 7.4, Neut % (Auto) 65.4, Lymph % (Auto) 23.3, [place] % (Auto) 7.5, Eos % (Auto) 3.5, Baso % (Auto) 0.4, Neut # (Auto) 6.5, Lymph # (Auto) 2.3, [place] # (Auto) 0.7, Eos # (Auto) 0.3, Baso # (Auto) 0.0 01/31/23 07:04: Sodium 132 L, Potassium 3.2 L, Chloride 97 L, Carbon Dioxide 30, Anion Gap 8.2, BUN 4 L D, Creatinine 0.70, Estimated Creat Clear 135, Estimated GFR 90, Est GFR ( Amer) 109, Glucose 140 H, Calcium 8.3 L, Magnesium 1.8, Total Bilirubin 0.7, AST 36, ALT 43 D, Alkaline Phosphatase 180 H, Total Protein 7.0, Albumin 3.5 D, Globulin 3.5 H, Albumin/Globulin Ratio 1.0 L I & O for Labs for Last 24 Hours: Intake & Output 01/28/23 01/29/23 01/30/23 01/31/23 23:59 23:59 23:59 23:59 Intake Total 240 / 240 Output Total 1949 / 1949 0 / 0 Balance -1949 / -1949 240 / 240 Weight 86.183 kg 83.325 kg 84.504 kg Constitutional: Present no acute distress Head: Present atraumatic and normocephalic Neck: Present normal inspection Respiratory: Present normal respiratory effort; Absent rhonchi, wheezes or crackles Cardiac: Present Reg Rate and Rhythm GI: Present soft, tenderness and diminished bowel sounds; Absent distention Extremities: Present normal inspection and full ROM Skin: Present intact; Absent erythema Neuro: Present Grossly Intact, alert, awake, oriented x 3 and moves all extremities Assessment and Plan *Assessment and plan (1) Stress-induced cardiomyopathy: Status: Acute
[2023-02-01] VITALS: BP 112/68; PULSE 86; PULSE 90; RESP 16; TEMP 36.6; O2SAT 98
--- NOTE | 2023-02-01 03:23 | PC.NURSE ---
Pt. has been in the 's on RA, up ad lip, asked me to remove her right AC iv that was hurting her arm some.
[2023-02-01 03:38] VITALS: BP 101/61; PULSE 94; RESP 16; TEMP 36.6; O2SAT 95; BMI 29.3
[2023-02-01 04:00] VITALS: PULSE 100
[2023-02-01 06:58] LABS: Basophils # 0.1 K/mm3 (0-0.2); Basophils % 0.6 % (0.1-2.0); Eosinophils # 0.5 K/mm3 (0.0-0.4); Hematocrit 36.1 % (37.0-47.0); Hemoglobin 12.2 g/dL (12.2-16.2); Lymphocytes # 2.8 K/mm3 (0.7-4.5); Lymphocytes % 27.6 % (10-50); Mean Corpuscular HGB Conc 33.8 g/dL (31.8-35.4); Mean Corpuscular Hemoglobin 28.8 pg (27.0-31.2); Mean Corpuscular Volume 85.2 fl (81-99); Mean Platelet Volume 7.1 fl (7.4-10.4); Monocytes # 0.7 K/mm3 (0.1-1.0); Monocytes % 7.2 % (1.7-9.3); Neutrophils # 6.2 K/mm3 (1.8-7.8); Neutrophils % 59.7 % (37.0-80.0); Platelet Count 469 K/mm3 (142-424); Red Blood Count 4.24 M/mm3 (4.20-5.40); Red Cell Distribution Width 14.4 % (11.5-17.5); White Blood Count 10.3 K/mm3 (4.8-10.8)
[2023-02-01 07:07] LABS: Alanine Aminotransferase 36 U/L (12-78); Albumin Level 3.6 g/dl (3.5-5.0); Albumin/Globulin Ratio 1.1 (1.1-1.8); Alkaline Phosphatase 164 U/L (38-126); Anion Gap 13.9 mEq/L (5-15); Aspartate Amino Transferase 31 U/L (14-36); Bilirubin,Total 0.5 mg/dl (0.2-1.3); Blood Urea Nitrogen 7 mg/dl (7-17); Calcium 8.5 mg/dl (8.4-10.2); Carbon Dioxide 29 mmol/L (22.0-30.0); Chloride 95 mmol/L (98-107); Creatinine Clearance Estimated 116 mL/min (50-200); Estimated Glomerular Filt Rate 78 ml/min (>60); GFR (African American) 94 ML/MIN (>60); Globulin 3.4 g/dL (1.3-3.2); Glucose 117 mg/dl (74-100); Sodium 135 mmol/L (136-145)
[2023-02-01 07:08] LABS: Magnesium 1.9 mg/dl (1.6-2.3)
[2023-02-01 07:10] LABS: Potassium 2.9 mmoL/L (3.5-5.1)
--- NOTE | 2023-02-01 07:16 | PC.NURSE ---
Dr. Nathan notified of critical K+ of 2.9.
[2023-02-01 08:00] VITALS: BP 116/67; PULSE 78; PULSE 81; RESP 16; RESP 18; TEMP 36.4; O2SAT 96; O2SAT 98
--- NOTE | 2023-02-01 08:41 | EXP.DC.SUM ---
General Admission date:: 01/30/23 Discharge date: 02/01/23 HPI HPI HPI: This is a 47-year-old female with a past medical history of prior brain aneurysm with surgical fixation, chronic pain who presents emergency department today with complaints of chest pain. She reports approximately 1 year ago during her brain surgery, experiencing a heart attack while in recovery. At that time they did an arteriogram but she did not require PCI. She reports hysterectomy this past Wednesday and developed chest pain this evening that was similar to the pain that she had during her prior surgery. She reports a squeezing type pain under her left armpit with pressure-like pain in her midsternal region. She denies any palpitations but states that her heart rate is elevated. She is tearful on my exam stating that she is in extreme pain. She denies any fever, cough, congestion. She denies any smoking history but does admit to THC liquid ingestion for stress management. Emergency department work-up significant for elevated troponin at 0.61. EKG without ischemia. Mild leukocytosis with a white count of 12. No obvious source of infection. Given patient's elevated troponin, cardiology was consulted and recommends heparin drip, nitro titrated for pain and admission to the hospital. She is admitted to the hospital service for further evaluation management. Hospital Course Hospital Course Hospital Course: The patient was admitted to the telemetry unit with cardiology consultation. She was maintained on IV heparin with nitroglycerin therapy. She underwent left heart catheterization on January 30 with no obstructing disease or intervention required. Her ejection fraction was noted to be 40%. She was started on ACC guided therapy for reduced ejection fraction heart failure. Her laboratory studies and inflammatory markers were trended and identified stability. Her potassium was replaced. Her creatinine remained normal. Her CBC remained stable. She tolerated her loop diuretic therapy with effective diuresing and improved symptomatology. She saturated appropriately on room air. She inquired about discharge home. We have recommended follow-up with her PCP and lift truck operator as scheduled. She will continue ongoing conversations concerning ARNI therapy with her lift truck operator. She has been started on ARB therapy to initiate the process. Her echocardiogram is pending on day of discharge. I spent 35 minutes in [id number] time with the patient and nursing staff concerning the discharge process. We discussed the admitting diagnoses and hospital course. We discussed identified improvement and the patient's desire to be discharged. We reviewed inpatient studies and imaging. The patient voiced understanding on the importance of follow-up with her primary care provider and lift truck operator. The patient plans to be compliant with the medication regimen prescribed and follow-up appointments. She understands that she can return to the emergency department with any sudden changes or concerns. Exam Data for Last 24 hours Vital signs and Labs for Last 24 Hours: Temp Pulse Resp BP Pulse Ox 97.6 F 81 18 116/67 96 02/01/23 08:00 02/01/23 08:00 02/01/23 08:00 02/01/23 08:00 02/01/23 08:00 Laboratory Results - last 24 hr 02/01/23 06:30: Sodium 135 L, Potassium 2.9 L*, Chloride 95 L, Carbon Dioxide 29, Anion Gap 13.9, BUN 7 D, Creatinine 0.80, Estimated Creat Clear 116, Estimated GFR 78, Est GFR ( Amer) 94, Glucose 117 H, Calcium 8.5, Total Bilirubin 0.5, AST 31, ALT 36, Alkaline Phosphatase 164 H, Total Protein 7.0, Albumin 3.6, Globulin 3.4 H, Albumin/Globulin Ratio 1.1 02/01/23 06:30: WBC 10.3, RBC 4.24, Hgb 12.2, Hct 36.1 L, MCV 85.2, MCH 28.8, MCHC 33.8, RDW 14.4, Plt Count 469 H, MPV 7.1 L, Neut % (Auto) 59.7, Lymph % (Auto) 27.6, [place] % (Auto) 7.2, Eos % (Auto) 5.0, Baso % (Auto) 0.6, Neut # (Auto) 6.2, Lymph # (Auto) 2.8, [place] # (Auto) 0.7, Eos # (Auto) 0.5 H, B
--- NOTE | 2023-02-01 09:12 | EXP.CARD.PN ---
Subjective Subjective Date: 02/01/23 Time: 08:00 Principal diagnosis: non-stemi Interval history: This is a 47-year-old female who presented to the emergency department with chest pain. She was found to have an elevated troponin consistent with a non-STEMI. The patient underwent left cardiac catheterization and was found to have normal coronary arteries and LV dysfunction with an ejection fraction of 35 to 40%. The patient was diagnosed with Takotsubo's cardiomyopathy. This morning she states that she is just feeling very fatigued and has no energy. She denies any chest pain or pressure. She denies any shortness of breath or edema. She denies any fever, chills, nausea, vomiting, diarrhea, PND or orthopnea. Exam Data for Last 24 hours Vital signs and Labs for Last 24 Hours: Temp Pulse Resp BP Pulse Ox 97.6 F 81 16 116/67 98 02/01/23 08:00 02/01/23 08:00 02/01/23 08:00 02/01/23 08:00 02/01/23 08:00 Laboratory Results - last 24 hr 02/01/23 06:30: Sodium 135 L, Potassium 2.9 L*, Chloride 95 L, Carbon Dioxide 29, Anion Gap 13.9, BUN 7 D, Creatinine 0.80, Estimated Creat Clear 116, Estimated GFR 78, Est GFR ( Amer) 94, Glucose 117 H, Calcium 8.5, Total Bilirubin 0.5, AST 31, ALT 36, Alkaline Phosphatase 164 H, Total Protein 7.0, Albumin 3.6, Globulin 3.4 H, Albumin/Globulin Ratio 1.1 02/01/23 06:30: WBC 10.3, RBC 4.24, Hgb 12.2, Hct 36.1 L, MCV 85.2, MCH 28.8, MCHC 33.8, RDW 14.4, Plt Count 469 H, MPV 7.1 L, Neut % (Auto) 59.7, Lymph % (Auto) 27.6, [place] % (Auto) 7.2, Eos % (Auto) 5.0, Baso % (Auto) 0.6, Neut # (Auto) 6.2, Lymph # (Auto) 2.8, [place] # (Auto) 0.7, Eos # (Auto) 0.5 H, Baso # (Auto) 0.1 02/01/23 06:30: Magnesium 1.9 I & O for Last 24 hours: Intake & Output 01/29/23 01/30/23 01/31/23 02/01/23 23:59 23:59 23:59 23:59 Intake Total 600 / 600 Output Total 1949 500 / 500 0 / 0 Balance -1949 100 / 100 0 / 0 Weight 190 lb 183 lb 11.203 oz 186 lb 4.8 oz 182 lb 12.8 oz Constitutional Constitutional: no acute distress and average body habitus *Routine HEENT Exam Head: Present normocephalic and atraumatic ENT: Present mucous membranes moist *Routine Neck Exam Neck: Present supple, full ROM and normal carotid upstroke; Absent JVD, carotid bruit or lymphadenopathy *Routine Respiratory Exam Respiratory: Present CTA bilaterally, normal respiratory effort, able to speak in complete sentences and symmetric chest movement *Routine Cardiovascular Exam Cardiovascular: Present RRR, Normal S1 and Normal S2; Absent murmur or gallop *Routine Abdominal Exam Abdominal: Present soft and normoactive bowel sounds; Absent tenderness, distended or organomegaly *Routine Extremities Exam Extremities: Present full ROM, pulses intact and normal capillary refill; Absent cyanosis, clubbing or edema *Routine Skin Exam Skin: Present intact and warm; Absent erythema *Routine Neurological Exam Neurological: Present alert, oriented X3 and CN II-XII intact; Absent sensory deficit or motor deficit Routine Psychiatric Exam Psychiatric: Present normal affect Progress Note: A&P Assessment and plan (1) Stress-induced cardiomyopathy: Status: Acute (2) Acute HFrEF (heart failure with reduced ejection fraction): Status: Acute (3) Acute non-ST elevation myocardial infarction (NSTEMI): Status: Acute (4) Elevated troponin: Status: Acute (5) Abnormal EKG: Status: Acute (6) Tachycardia: Status: Acute (7) Takotsubo cardiomyopathy: Status: Acute Assessment and Plan Assessment and Plan for All Diagnoses:: Plan: 1. Patient was admitted to the hospital and found to have an elevated troponin consistent with a non-STEMI. She underwent left cardiac catheterization was found to have normal coronary arteries. The patient did have LV dysfunction with an ejection fraction of 35 to 40% consistent with probable Takotsubo's cardiomyopathy. 2. The preliminary echocardiogram also shows an e
[2023-02-01 11:33] LABS: Potassium 3.6 mmoL/L (3.5-5.1)
--- NOTE | 2023-02-02 13:34 | CARE MANAGER ---
Spoke with patient for post-discharge phone interview, no issues noted.
== END 2023-02-01 12:18 | disposition home or self-care (01) | DRG 280 ==
LOC: ER 01-30 00:58 → 2ND 01-30 01:53
PROVIDERS: Family Medicine; Internal Medicine Interventional Cardiology; Nurse Practitioner Acute Care; Admitting Provider Internal Medicine Adolescent Medicine; Emergency Provider Family Medicine; PCP Family Medicine; Visit Provider Internal Medicine Adolescent Medicine
PROC: 4A023N7 Measurement of Cardiac Sampling and Pressure, Left Heart, Percutaneous Approach (ICD-10-PCS; principal; 2023-01-30 09:50)
DX: I21.4 Non-ST elevation (NSTEMI) myocardial infarction (principal); I50.21 Acute systolic (congestive) heart failure; I51.81 Takotsubo syndrome; K59.00 Constipation, unspecified; E78.5 Hyperlipidemia, unspecified; F41.9 Anxiety disorder, unspecified; F32.A Depression, unspecified; G89.29 Other chronic pain; I25.2 Old myocardial infarction; I11.0 Hypertensive heart disease with heart failure; R07.89 Other chest pain
CPT/HCPCS: 36415; 71045; 80048; 80053; 80061; 80076; 83735; 84132; 84484; 85025; 85347; 85378; 85610; 85730; 93005; 93306; 93458; 99152; 99153; 99291; C1725; C1769; C9803; J1644; J2405; Q9967; U0003; U0005

== ENCOUNTER → 2023-06-11 13:51 | Outpatient (CLI) | payer OTHER, SELFPAY ==
[2023-06-11 14:38] LABS: Troponin I < 0.01 ng/ml (0.00-0.034)
== END ==
PROVIDERS: PCP Family Medicine; Visit Provider Nurse Practitioner
DX: R07.9 Chest pain, unspecified (principal)
CPT/HCPCS: 36415; 84484

== ENCOUNTER → 2023-08-10 12:17 | Outpatient (CLI) | payer OTHER, SELFPAY | PROVIDERS: PCP Family Medicine; Visit Provider Specialist | DX: R55 Syncope and collapse (principal); I51.81 Takotsubo syndrome | CPT/HCPCS: 93270 ==

== ENCOUNTER → 2023-09-23 15:57 | Outpatient (CLI) | payer OTHER, SELFPAY ==
[2023-09-23 16:26] LABS: Basophils # 0.1 K/mm3 (0-0.2); Basophils % 1.7 % (0.1-2.0); Eosinophils # 0.4 K/mm3 (0.0-0.4); Eosinophils % 4.5 % (0.1-12.0); Hematocrit 40.6 % (37.0-47.0); Hemoglobin 14.3 g/dL (12.2-16.2); Lymphocytes # 3.3 K/mm3 (0.7-4.5); Lymphocytes % 42.4 % (10-50); Mean Corpuscular HGB Conc 35.3 g/dL (31.8-35.4); Mean Corpuscular Hemoglobin 30.1 pg (27.0-31.2); Mean Corpuscular Volume 85.4 fl (81-99); Mean Platelet Volume 7.3 fl (7.4-10.4); Monocytes # 0.5 K/mm3 (0.1-1.0); Monocytes % 5.9 % (1.7-9.3); Neutrophils # 3.5 K/mm3 (1.8-7.8); Neutrophils % 45.5 % (37.0-80.0); Platelet Count 379 K/mm3 (142-424); Red Blood Count 4.75 M/mm3 (4.20-5.40); Red Cell Distribution Width 13.5 % (11.5-17.5); White Blood Count 7.8 K/mm3 (4.8-10.8)
[2023-09-23 19:31] LABS: Alanine Aminotransferase 29 U/L (12-78); Alkaline Phosphatase 89 U/L (38-126); Aspartate Amino Transferase 31 U/L (14-36); Bilirubin,Direct 0.2 mg/dl (0.0-0.4); Bilirubin,Indirect 0.1 mg/dL (0.0-0.9); Bilirubin,Total 0.3 mg/dl (0.2-1.3); Bilirubin,Unconjugated 0.1 mg/dL (0.0-1.1); Blood Urea Nitrogen 17 mg/dl (7-17); Calcium 9.3 mg/dl (8.4-10.2); Carbon Dioxide 29 mmol/L (22.0-30.0); Chol/HDL Ratio 4.2 (1-3.5); Cholesterol 263 mg/dl (140-200); Estimated Glomerular Filt Rate 60 ml/min (>60); GFR (African American) 72 ML/MIN (>60); Glucose 102 mg/dl (74-100); HDL Cholesterol 63 mg/dl (40-60); Magnesium 1.7 mg/dl (1.6-2.3); Triglycerides 390 mg/dl (30-150); VLDL Cholesterol 78 mg/dL (0-40)
[2023-09-23 19:42] LABS: Direct LDL Cholesterol 132.26 mg/dL (100-129)
[2023-09-23 19:47] LABS: Free T4 (Free Thyroxine) 1.13 ng/dl (0.78-2.19)
[2023-09-23 20:01] LABS: Thyroid Stimulating Hormone 3.05 uIU/mL (0.465-4.68)
[2023-09-23 20:12] LABS: Albumin Level 4.7 g/dl (3.5-5.0); Chloride 104 mmol/L (98-107); Potassium 4.2 mmoL/L (3.5-5.1); Total Protein,Serum 7.7 g/dl (6.3-8.2)
[2023-09-23 20:20] LABS: Anion Gap 10.2 mEq/L (5-15); Sodium 139 mmol/L (136-145)
[2023-09-25 16:01] LABS: Lyme Ab CIA Negative (Negative)
[2023-09-29 08:17] LABS: Antinuclear Antibodies, IFA Negative (.)
[2023-09-29 16:16] LABS: Lyme B. burgdorferi PCR Blood Negative (Negative)
== END ==
PROVIDERS: PCP Nurse Practitioner; Visit Provider Internal Medicine
DX: R55 Syncope and collapse; I11.0 Hypertensive heart disease with heart failure; I50.21 Acute systolic (congestive) heart failure
CPT/HCPCS: 36415; 80048; 80061; 80076; 83735; 84439; 84443; 85025; 86038; 86618; 87476

== ENCOUNTER → 2023-10-01 10:54 | Outpatient (CLI) | payer OTHER, SELFPAY ==
--- NOTE | 2023-10-01 10:57 | MR_ITS ---
FINAL REPORT CLINICAL HISTORY: neck pain, arm numb/tingling. HEADACHE FINDINGS: Multi planar MR imaging was obtained of the cervical spine. There is abnormal decreased signal throughout the cervical discs. The vertebrae are of normal height. There is no malalignment. The cervical cord demonstrates normal signal and configuration. C2-C3: There is no evidence of significant disc bulge or protrusion. There is no significant facet hypertrophy. C3-C4: There is no evidence of significant disc bulge or protrusion. There is no significant facet hypertrophy. C4-C5: There is mild endplate hypertrophy, eccentric to the left with mild left neural foraminal narrowing. C5-C6: There is moderate midline and right paracentral disc protrusion with moderate to high-grade right neural foraminal narrowing. C6-C7: There is no evidence of significant disc bulge or protrusion. There is no significant facet hypertrophy. C7-T1: There is no evidence of significant disc bulge or protrusion. There is no significant facet hypertrophy. IMPRESSION: Right paracentral disc protrusion at C5-6 with moderate to high-grade right neural foraminal narrowing. Reviewed, Interpreted and Dictated by Chuck Crenshaw MD Transcribed by Mary Fang Authenticated and [facility]
== END ==
LOC: RAD 10:57
PROVIDERS: PCP Nurse Practitioner; Visit Provider Specialist
DX: M54.2 Cervicalgia (principal); R20.0 Anesthesia of skin; R20.2 Paresthesia of skin
CPT/HCPCS: 72141; 76376

== ENCOUNTER 2023-10-13 10:49 | Outpatient (CLI) | payer OTHER, SELFPAY ==
--- NOTE | 2023-10-13 10:50 | CA_ITS ---
APPROVED REPORT EXAM: Comprehensive 2D, Doppler, and color-flow Echocardiogram Sap Business Analyst: Leatha Schwartz RVT Ht: 5 ft 6 in Wt: 191lbs BSA: 1.96 BP: 144/92 mmHg Indications: ABN HOLTER,CHF,2ND DEGREE AV BLOCK,HTN,HLD,HX TAKOTSUBO-RESOLVED 2D Dimensions LA Volume 49.90 mL LA Volume Index 25.46 mL/m2 (M/F) 16-34 M-Mode Dimensions RVDd 2.16 cm (0.9-2.6) LA Diam 3.68 cm (1.9-4.0) LVDd 4.28 cm (3.5-5.7) LVDs 3.49 cm (3.5-5.7) IVSd 1.12 cm (0.6-1.1) PWd 0.55 cm (0.6-1.1) EF (Teich) 38.60% FS 18.50% EDV (Teich) 82.20 mL TAPSE 2.06 (<1.7) ESV (Teich) 50.50 mL LV Diastology E Decel Time 150 (160-240 msec) E/A Ratio 3.1 Aortic Valve SHIRLEY Index 0.88 cm2/m2 AoV Peak Ugo. 138.0 (50-130 cm/s) AO Peak GR. 7.70 mmHg AO Mean GR. 3.80 (<5 mmHg) AO VTI 32.5 (18-25 cm) SHIRLEY (VTI) 1.76 (2.5-4.5 cm2) Mitral Valve MV E Max Ugo. 88.0 (40-130 cm/s) MV A Velocity 28.0 (40-130 cm/s) E/A Ratio 3.13 MV PHT 44.0 ms Pulmonary Valve PV Peak Velocity 72.0 (50-150 cm/s) Tricuspid Valve TR P. Velocity 307.00 cm/s RAP Estimate 10.00 mmHg RVSP 47.70 mmHg Left Ventricle The left ventricle is normal size. The left ventricular systolic function is normal. The left ventricular ejection fraction is within the normal range. Proximal septal thickening is noted. There is normal LV segmental wall motion. The left ventricular diastolic function is normal. LVEF is 60%. Right Ventricle The right ventricle is mildly dilated. The right ventricular systolic function is normal. Atria The left atrium size is normal. The right atrium size is normal. There is no Doppler evidence of interatrial shunt. Aortic Valve The aortic valve opens well. There is no aortic valvular stenosis. Trace aortic regurgitation. Mitral Valve The mitral valve is normal in structure. No evidence of mitral valve stenosis. Normal LV systolic function Mild mitral regurgitation. Tricuspid Valve The tricuspid valve leaflets are thin and pliable. Mild tricuspid regurgitation. RVSP is 20-25 mmHg. Pulmonic Valve The pulmonary valve is normal in structure. Mild pulmonic regurgitation. Great Vessels The aortic root is normal in size. The ascending aorta is normal in size. IVC is normal in size and collapses >50% with inspiration. Pericardium There is no pericardial effusion. Other Information Study Quality: Fair Conclusion Normal biventricular systolic function. Mild RV dilation. Mild MR, mild TR. Electronically signed by : Kalyani Story MD 10/16/2023 00:48:46
== END 2023-10-13 23:59 ==
LOC: RT 10:50
PROVIDERS: PCP Nurse Practitioner; Visit Provider Internal Medicine
DX: I11.0 Hypertensive heart disease with heart failure (principal); I44.1 Atrioventricular block, second degree; I50.21 Acute systolic (congestive) heart failure; R55 Syncope and collapse
CPT/HCPCS: 93306

== ENCOUNTER 2023-10-27 12:52 | Outpatient (CLI) | payer OTHER, SELFPAY ==
--- NOTE | 2023-10-27 12:52 | MR_ITS ---
APPROVED REPORT Manager Crisis: CLINICAL INDICATION Stress cardiomyopathy evaluation TECHNIQUE Image Acquisition: Cardiac magnetic resonance (CMR) was performed on Siemens Espree MRI 1.5T scanner. Software platform sequences were performed using the Siemens AlertMe MR B19 platform. A set of three-plane, low-resolution, large [id number]-[id number] localizers were initially acquired. Then axial, coronal, sagittal TrueFISP, as well as axial HASTE images, were obtained. These were followed by gated TrueFISP breathold cinematic sequences obtained in the short axis with 8 mm slices and 2 mm gaps, 2-chamber (vertical long axis), 3-chamber, 4-chamber (horizontal long axis). A bolus of contrast was injected intravenously with first-pass sequences obtained in the short axis and four-chamber planes. After approximately 10 minutes, a TI college scouting coordinator sequence was performed to determine the optimal TI time. Using the optimized TI time, delayed contrast enhancement segmented inversion???recovery TurboFLASH sequences were obtained in the short axis, 2-chamber, 3-chamber, and 4-chamber projections. 2D-velocity phase mapping was performed. Functional parameters were calculated by offline analysis on an independent workstation ([employer], [employer] ([place] Contrast: ProHance??? (Gadoteridol) FINDINGS MORPHOLOGY AND FUNCTION Left ventricle: The left ventricle is normal in size. The indexed left ventricular end-diastolic volume (LVEDVi) is 59 ml/m2 (reference range 57-105 ml/m2 in males, 56-96 ml/m2 in females). Normal left ventricular systolic function is present. There is normal left ventricular wall thickness. There are no regional wall motion abnormalities noted. LVEF is calculated at 76.2% (reference range 57-77%). Right ventricle: The right ventricle is normal in size. The indexed right ventricular end-diastolic volume (RVEDVi) is 56 ml/m2 (reference range 61-121 ml/m2 in males, 48-112 ml/m2 in females). Normal right ventricular systolic function is present. RVEF is calculated at 69.7% (reference range 52-72% in males, 51-71% in females). Atria: The left atrium is normal in size. The maximum indexed left atrial volume is 29 ml/m2 (reference range 26-52 ml/m2 in males, 27-53 ml/m2 in females). The right atrium is normal in size. The maximum indexed right atrial volume is 20 ml/m2 (reference range 18-90 ml/m2). Aorta: The diameter of the aortic annulus is normal, measuring 24 mm (coronal view reference range 21-30 mm in males, 19-27 mm in females). The diameter of the aortic sinus is normal, measuring 28 mm (coronal view reference range 25-42 mm in males, 24-36 mm in females). The diameter of the sinotubular junction is normal, measuring 24 mm (coronal view reference range 18-32 mm in males, 18-28 mm in females). The diameters of the ascending and descending thoracic aorta are normal. Main pulmonary artery: The main pulmonary artery diameter is normal. Pericardium: The pericardial thickness is normal. The pericardial thickness measures 1.4 cm (normal < 4.0 cm). There is no pericardial effusion. VALVES The valvular morphologies in the visualized sequences appear normal. There is no significant valvular stenosis or regurgitation of the mitral, aortic, tricuspid, or pulmonic valve noted visually. Systolic anterior motion of the mitral valve is not visualized. Ratio of pulmonary to systemic flow, Qp:Qs ratio, cannot be calculated due to technical difficulty during phase contrast evaluation of pulmonary flow. TISSUE CHARACTERIZATION Resting Perfusion: Normal myocardial blood flow at rest. No evidence of resting hypoperfusion. Myocardial Fibrosis and/or edema: Normal gadolinium kinetics are present. No evidence of late gadolinium enhancement is noted, consistent with absence of myocardial scarring, infarction, or necrosis. T2-weighted imaging demonstrates no evidence of myocardial edema or inflammation. OTHER No other significant findings are noted. However, this exam is focused on the cardiac structure and function. IMPRESSION Normal LV size with normal LV systolic function. LVEDVi= 59 ml/m2 and LVEF= 76.2%. Normal RV size with normal RV systolic function. RVEDVi= 56 ml/m2 and RVEF= 69.7%. No atrial enlargement. No CMR evidence of myocardial scarring, infarction, or necrosis. No evidence of myocardial edema or inflammation. Perfusion analysis demonstrates normal blood flow at rest with no evidence of resting hypoperfusion. Ratio of pulmonary to systemic flow, Qp:Qs ratio, cannot be calculated due to technical difficulty during phase contrast evaluation of pulmonary flow. Overall, this CMR demonstrates normal biventricular systolic size and function with no evidence of scarring or tissue fibrosis. In the setting of short-term LVEF recovery and absence of myocardial fibrosis on LGE, findings are suggestive of stress cardiomyopathy with full recovery. COMPARISON None CRITICAL RESULT None COMMUNICATION Per this written report The findings of this cardiac MR were reviewed, reported, and signed by Flavio Story MD (Director Of It Operations). Conclusion Electronically signed by : Kalyani Story MD 11/05/2023 17:25:07
[2023-10-27 13:18] LABS: Blood Urea Nitrogen 15 mg/dl (7-17); Estimated Glomerular Filt Rate 67 ml/min (>60); GFR (African American) 82 ML/MIN (>60)
[2023-10-27] MEDS: 0.9 % SODIUM CHLORIDE 50 ML VIAL IV (14:50)
[2023-10-27] MEDS: GADOTERIDOL INJ 17ML SYRINGE 20 ML IV (14:51)
[2023-10-27] MEDS: SODIUM CHLORIDE 0.9% 10ML SYR (RAD ONLY) 10 ML IV (14:51)
== END 2023-10-27 23:59 ==
LOC: RAD 12:52
PROVIDERS: PCP Family Medicine; Visit Provider Internal Medicine
DX: I44.1 Atrioventricular block, second degree; I50.21 Acute systolic (congestive) heart failure; R55 Syncope and collapse; I11.0 Hypertensive heart disease with heart failure
CPT/HCPCS: 36415; 75561; 82565; 84520; A9576

== ENCOUNTER 2023-11-21 12:13 | Emergency (ER) | payer OTHER, SELFPAY ==
[2023-11-21 12:18] VITALS: BP 169/105; PULSE 90; O2SAT 100
[2023-11-21 12:30] VITALS: BP 154/108; PULSE 84; O2SAT 100
[2023-11-21 12:31] VITALS: BP 169/105; PULSE 88; RESP 20; TEMP 36.9; O2SAT 98; BMI 30.7
--- NOTE | 2023-11-21 12:35 | CT_ITS ---
PROCEDURE INFORMATION: Exam: CTA Neck With Contrast Exam date and time: 11/21/2023 12:51 PM Age: 48 years old Clinical indication: Pain; Other: Neck; Additional info: Severe R neck pain rad down rue TECHNIQUE: Imaging protocol: Computed tomographic angiography of the neck with contrast. Exam focused on the cervical segments of the vasculature. 3D rendering (Not supervised by radiologist): MIP and/or 3D reconstructed images were created by the technologist. Radiation optimization: All CT scans at this facility use at least one of these dose optimization techniques: automated exposure control; mA and/or kV adjustment per patient size (includes targeted exams where dose is matched to clinical indication); or iterative reconstruction. Contrast material: ISO 370; Contrast volume: 100 ml; Contrast route: INTRAVENOUS (IV); COMPARISON: MR CERVICAL SPINE WO CON 10/01/2023 11:07 AM FINDINGS: Right common carotid artery: No stenosis. No dissection or occlusion. Right internal carotid artery: The right internal carotid artery is patent. No stenosis by NASCET criteria. No evidence of dissection. There is a flow diverter in the right cavernous carotid. Right external carotid artery: No occlusion or stenosis of the origin. Left common carotid artery: No stenosis. No dissection or occlusion. Left internal carotid artery: Moderate atherosclerotic changes contribute to 50-69% stenosis per NASCET criteria at the origin of left internal carotid artery. Left external carotid artery: No occlusion or stenosis of the origin. Right vertebral artery: No stenosis. No dissection or occlusion. Left vertebral artery: No stenosis. No dissection or occlusion. Soft tissues: Normal. No significant soft tissue swelling. Bones/joints: No acute fracture. IMPRESSION: Moderate atherosclerotic changes contribute to 50-69% stenosis per NASCET criteria at the origin of left internal carotid artery. No acute osseous abnormality. REFERENCES: NASCET CRITERIA. The degree of stenosis in the cervical segment of the internal carotid artery is based on NASCET criteria. Normal is no stenosis. Mild is less than 50% stenosis. Moderate is 50-69% stenosis. Severe is 70% to 99% stenosis. Total occlusion is no detectable patent lumen.
--- NOTE | 2023-11-21 12:44 | [facility].EDGENADL ---
Discharge Plan Disposition Patient Disposition: Home, Self-Care Chief Complaint: PAIN Prescriptions Prescriptions: New lidocaine 5 % adhesive patch,medicated 1 patch topical DAILY Qty: 15 0RF Rx Instructions: leave on most painful area for up to 12 hrs methocarbamol 500 mg tablet 1,000 mg PO Q8H PRN (Reason: muscle spasm) Qty: 30 0RF No Action albuterol sulfate [ProAir HFA] 90 mcg/actuation HFA aerosol inhaler 2 puff INHALATION BIDP PRN (Reason: Shortness Of Breath) paroxetine HCl [Paxil] 10 mg tablet 10 mg PO DAILY Qty: 30 2RF levothyroxine 25 mcg tablet PO metoprolol succinate 25 mg tablet extended release 24 hr 25 mg PO DAILY Qty: 30 5RF ondansetron 8 mg tablet,disintegrating 8 mg PO PRN atorvastatin [Lipitor] 40 mg tablet 80 mg PO DAILY metformin 500 mg tablet 500 mg PO DAILY tizanidine 2 mg tablet 2 mg PO PRN Qulipta 60 mg tablet 60 mg PO DAILY lorazepam 1 mg tablet 1 mg feeding tube HS hydrocodone-acetaminophen 10-325 mg tablet 1 tab PO Q6H PRN promethazine 25 mg tablet 25 mg PO Q12H PRN topiramate 25 mg tablet 50 mg PO HS cyclobenzaprine 10 mg tablet 10 mg PO PRN amlodipine [Norvasc] 5 mg tablet 5 mg PO DAILY Qty: 30 5RF Nurtec ODT 75 mg tablet,disintegrating 75 mg PO ONCE PRN (Reason: MIGRAINE) aspirin 81 mg Tablet,Delayed Release (Dr/Ec) 81 mg PO DAILY Qty: 30 0RF Referrals Follow up/Referrals: Provider,Referral, MD [Primary Care Provider] - See instructions Activity Restrictions/Add. Instructions Additional Instructions/Restrictions: At this time it was felt you are safe to be discharged home. If new or worsening symptoms please do not hesitate to return the emergency department. If symptoms persist please follow-up with your family doctor as you are able. Please take medication as prescribed. Clinical Impressions Clinical Impression: Neck pain, Radiculopathy Discharge ED Provider: Shelton Wood General Adult HPI General Chief complaint: PAIN Stated complaint: back pain, can't move Rt arm Time Seen by Provider: 11/21/23 12:20 Mode of Arrival: Ambulatory Source of Information: Patient Limitations: No Limitations Description of Symptoms (Recalled from ER Triage Doc. by RN): pt presents crying an anxious. pt c/o R sided upper back/scapula pain that radiates down her R arm all the way to the tip of her index finger. pt states the pain is 10/10, sharp and tingling in nature. pt states she woke up with this pain and denies any injury. History of Present Illness HPI narrative: Patient is a 48-year-old female with past medical history of chronic right-sided shoulder and scapular pain who presents emergency department for neck pain, shoulder pain radiating down her right arm into her right index finger. Patient awoke with it this morning, she typically does not have neck pain and it is much more severe than her baseline causing her to become concerned and present here for continued evaluation. It does shoot down her arm into her index finger. She has a past medical history of previous CVA with no motor residual, bilateral numbness and tingling's of her arms and legs, hypertension, Takotsubo's cardiomyopathy, episodic migraines, cerebral aneurysm status post coiling. Specifically when asked if she cannot move her arm she can move her arm and neck she just wishes not to secondary to severe pain. Per chart review she has past medical history of cervical spine pain status post injections. Related Data Home Medications Medication Instructions Recorded Confirmed albuterol sulfate 90 mcg/actuation 2 puff inhalation BIDP PRN 01/05/22 11/03/23 aerosol inhaler (ProAir HFA) Shortness Of Breath atogepant 60 mg tablet (Qulipta) 60 mg PO DAILY 06/16/23 11/03/23 atorvastatin 40 mg tablet (Lipitor) 80 mg PO DAILY 06/16/23 11/03/23 metformin 500 mg tablet 500 mg PO DAILY 06/16/23 11/03/23 ondansetron 8 mg disintegrating 8 mg PO PRN 06/16/23 11/03/23 tablet tizanidine 2 mg tablet 2 mg PO PRN 06/16/23 11/03/23 cyclobenzaprine 10 mg tablet 10 mg PO PRN 08/09/23 11/03/23 hydrocodone 10 mg-acetaminophen 1 tab PO Q6H PRN 08/09/23 11/03/23 325 mg tablet lorazepam 1 mg tablet 1 mg feeding tube HS 08/09/23 11/03/23 promethazine 25 mg tablet 25 mg PO Q12H PRN 08/09/23 11/03/23 rimegepant 75 mg disintegrating 75 mg PO ONCE PRN MIGRAINE 08/09/23 11/03/23 tablet (Nurtec ODT) topiramate 25 mg tablet 50 mg PO HS 08/09/23 11/03/23 levothyroxine 25 mcg tablet mcg PO 09/23/23 11/03/23 Previous Rx's Medication Instructions Recorded aspirin 81 mg tablet,delayed 81 mg PO DAILY #30 tabs 02/01/23 release metoprolol succinate 25 mg 25 mg PO DAILY #30 tabs 02/09/23 tablet,extended release 24 hr paroxetine HCl 10 mg tablet (Paxil) 10 mg PO DAILY #30 tabs 09/22/23 amlodipine 5 mg tablet (Norvasc) 5 mg PO DAILY #30 tabs 11/03/23 lidocaine 5 % topical patch 1 patch topical DAILY muscle pain 11/21/23 #15 ea methocarbamol 500 mg tablet 1,000 mg PO Q8H PRN muscle spasm 11/21/23 #30 tabs Allergies Allergy/AdvReac Type Severity Reaction Status Date / Time fentanyl Allergy Severe Anxiety Verified 11/03/23 14:55 ciprofloxacin [From Cipro] Allergy Mild Verified 11/03/23 14:55 morphine Allergy Verified 11/03/23 14:55 PFSH PFSH Disclaimer: The information contained in this section may have been updated after the patient was seen, as this information can be updated by other users. Medical History 2nd degree AV block Abnormal uterine bleeding Angina pectoris syndrome Most recent chest pain episode 09/12/2022. Anxiety Asthma Brain aneurysm Status post coiling, asymptomatic. Brain aneurysm Depression Dizziness Dyspnea Endometriosis H/O chronic meningitis Headache History of anemia History of heart attack History of meningitis History of stroke HLD (hyperlipidemia) HTN (hypertension) Need to follow-up with PCP persistent elevation of BP. Irritable bowel syndrome (IBS) Menorrhagia Migraine Myocardial infarct Pelvic pain Sacroiliitis Takotsubo cardiomyopathy Active follow-up with cardiology team at [facility], (Dr. Eugene). Last seen following hospital discharge from [facility] on 07/09/2023 and scheduled for follow-up in a year. Ejection fraction apparently back to normal, EKG within normal range. Surgical History H/O cerebral aneurysm repair H/O tubal ligation History of arthroscopy of right shoulder History of cholecystectomy History of endometrial ablation 11/11/22 Hx of cholecystectomy S/P laparoscopic hysterectomy with bilateral oophorectomy 01/25/23 Family History Mother Ovarian cancer Family history of stroke Grandmother Lung cancer Other Family history of diabetes mellitus type II Family history of myocardial infarction No significant family history Social History Smoking Status: Never smoker alcohol intake: never substance use type: denies use current occupational status: employed Travel in the last 8 weeks: None household members: significant other and children housing: house lives independently: Yes marital status: education level: other current occupational exposures/hazards: No caffeine: Yes do you feel safe at home: Yes victim of physical abuse: No victim of emotional abuse: No victim of sexual abuse: No ROS Obtained: Yes Systems reviewed as appropriate & no additional complaints except as documented Physical Exam General General appearance: alert, anxious and in distress Head Head exam: atraumatic and normocephalic Eye Eye exam: Present PERRL ENT ENT exam: Present mucous membranes moist Neck Neck exam: Present normal inspection; Absent full ROM (Limited lateral range of motion secondary to severe right cervical paraspinal pain.) Chest Chest inspection: Present normal inspection and symmetric chest wall rise Respiratory Respiratory exam: Present other (Tachypnea) Cardiovascular Cardiovascular exam: Present regular rate and normal rhythm Abdominal Exam Abdominal exam: Present soft Extremities Exam Extremities exam: Present normal inspection and other (5 out of 5 strength bilateral upper extremities, 2+ dorsal pedal pulses bilaterally, pain in the neck reproduced with flexion of the elbow, abduction of the shoulder.) Neurological Exam Neurological exam: Present alert and motor sensory deficit (Sensation intact to light touch bilateral upper extremities, altered sensation over the index finger.) Psychiatric Psychiatric exam: Present anxious Skin Skin exam: Present warm and dry Medical Decision Making Tim Inquiry Pt receiving controlled substance: No Vital Signs: 11/21/23 12:31 11/21/23 12:18 11/21/23 12:30 Temperature 98.5 F Temperature Source Oral Pulse Rate 90 84 Pulse Rate [Left] 88 Respiratory Rate 20 Blood Pressure 169/105 H 154/108 H Blood Pressure [Right Arm] 169/105 H Blood Pressure Mean 124 130 Blood Pressure Mean [Right Arm] 126 Blood Pressure Source [Right Arm] Automatic Cuff Blood Pressure Position [Right Arm] Sitting 02 Sat by Pulse Oximetry 98 100 100 11/21/23 13:30 Temperature Temperature Source Pulse Rate Pulse Rate [Left] Respiratory Rate Blood Pressure 109/76 L Blood Pressure [Right Arm] Blood Pressure Mean 87 Blood Pressure Mean [Right Arm] Blood Pressure Source [Right Arm] Blood Pressure Position [Right Arm] 02 Sat by Pulse Oximetry Lab Data Lab Results 11/21/23 12:40: WBC 7.9, RBC 5.28, Hgb 15.5, Hct 44.1, MCV 83.4, MCH 29.3, MCHC 35.1, RDW 13.4, Plt Count 398, MPV 7.3 L, Neut % (Auto) 51.1, Lymph % (Auto) 36.2, Andrews % (Auto) 4.4, Eos % (Auto) 7.7, Baso % (Auto) 0.5, Neut # (Auto) 4.1, Lymph # (Auto) 2.9, Andrews # (Auto) 0.4, Eos # (Auto) 0.6 H, Baso # (Auto) 0.0, Sodium 138, Potassium 4.3, Chloride 103, Carbon Dioxide 31 H, Anion Gap 8.3, BUN 13, Creatinine 0.80, Estimated Creat Clear 120, Estimated GFR 77, Est GFR ( Amer) 93, Glucose 138 H, Calcium 9.8, Total Bilirubin 0.6, AST 37 H, ALT 36, Alkaline Phosphatase 99, Total Protein 8.0, Albumin 4.8, Globulin 3.2, Albumin/Globulin Ratio 1.5 11/21/23 12:40 11/21/23 12:40 Orders (Tests/Meds): ED MEDICATIONS Discontinued Medications Generic Name Dose Route Start Last Admin Trade Name Freq PRN Reason Stop Dose Admin Acetaminophen 1,000 mg 11/21/23 12:35 11/21/23 13:02 Acetaminophen 500mg Tab PO 11/21/23 12:36 1,000 mg ONCE ONE Administration Diazepam 5 mg 11/21/23 12:35 11/21/23 13:03 Diazepam 10mg/2ml Syringe IV 11/21/23 12:36 5 mg ONCE ONE Administration Iopamidol 100 ml 11/21/23 12:52 11/21/23 12:53 Iopamidol-370 (76%);100ml Bottle IV 11/21/23 12:53 100 ml ONCE ONE Administration Ketorolac Tromethamine 30 mg 11/21/23 12:35 11/21/23 13:03 Ketorolac 30mg/Ml Vial IV 11/21/23 12:36 30 mg ONCE ONE Administration Lidocaine 1 each 11/21/23 12:35 11/21/23 13:03 Lidocaine 5% Transdermal Patch TP 11/21/23 12:36 1 each ONCE ONE Administration Sodium Chloride 10 ml 11/21/23 12:52 11/21/23 12:53 Sodium Chloride 0.9% 10ml Syr (Rad Only) IV 11/21/23 12:53 10 ml ONCE ONE Administration Sodium Chloride 50 ml 11/21/23 12:52 11/21/23 12:53 0.9 % Sodium Chloride 50 Ml Vial IV 11/21/23 12:53 50 ml ONCE ONE Administration ORDERS Category Date Time Status CT angio neck Stat Cat Scan 11/21/23 12:35 Completed CBC w/Auto Diff [Complete Blood Count Auto Diff] Stat Lab 11/21/23 12:40 Completed CMP [Comprehensive Metabolic Panel] Stat Lab 11/21/23 12:40 Completed Medical Decision Narrative: In summary patient is a 48-year-old female with past medical history described above who presents to the emergency department for evaluation of severe neck pain, right scapular pain, radiating down her right upper extremity. Patient is hemodynamically stable nontoxic-appearing upon arrival, severely anxious, upset and hyperventilating at bedside. Differential diagnosis includes acute on chronic neck pain, vertebral dissection, dystonia, hypocalcemia, among others. Initial workup will be conducted with hematologic labs, CTA neck. Noncontrasted CT imaging of the cervical spine was considered however in the absence of trauma no midline tenderness will be deferred. Initial interventions include multimodal pain control with lidocaine patch, diazepam, Tylenol, Toradol. Workup reviewed by me, hematologic labs are nonactionable. CTA shows no acute pathology. Upon repeat evaluation patient had some improvement of symptoms however persistent pain for which single dose oxycodone will be given given that patient takes Lortab chronically at home. It was felt that all emergent pathology have been ruled out at this point and this is an exacerbation of her chronic pain versus muscle spasm or torticollis. History and physical I do not suspect CVA. Patient will be discharged with lidocaine patches and muscle relaxers. Critical Care Critical Care Time Critical Care Time: No
[2023-11-21 12:50] LABS: Basophils % 0.5 % (0.1-2.0); Eosinophils # 0.6 K/mm3 (0.0-0.4); Eosinophils % 7.7 % (0.1-12.0); Hematocrit 44.1 % (37.0-47.0); Hemoglobin 15.5 g/dL (12.2-16.2); Lymphocytes # 2.9 K/mm3 (0.7-4.5); Lymphocytes % 36.2 % (10-50); Mean Corpuscular HGB Conc 35.1 g/dL (31.8-35.4); Mean Corpuscular Hemoglobin 29.3 pg (27.0-31.2); Mean Corpuscular Volume 83.4 fl (81-99); Mean Platelet Volume 7.3 fl (7.4-10.4); Monocytes # 0.4 K/mm3 (0.1-1.0); Monocytes % 4.4 % (1.7-9.3); Neutrophils # 4.1 K/mm3 (1.8-7.8); Neutrophils % 51.1 % (37.0-80.0); Platelet Count 398 K/mm3 (142-424); Red Blood Count 5.28 M/mm3 (4.20-5.40); Red Cell Distribution Width 13.4 % (11.5-17.5); White Blood Count 7.9 K/mm3 (4.8-10.8)
[2023-11-21] MEDS: IOPAMIDOL-370 (76%);100ML BOTTLE 100 ML IV (12:53)
[2023-11-21] MEDS: 0.9 % SODIUM CHLORIDE 50 ML VIAL IV (12:53)
[2023-11-21] MEDS: SODIUM CHLORIDE 0.9% 10ML SYR (RAD ONLY) 10 ML IV (12:53)
[2023-11-21 12:54] LABS: Chloride 103 mmol/L (98-107); Potassium 4.3 mmoL/L (3.5-5.1); Sodium 138 mmol/L (136-145)
[2023-11-21 12:56] LABS: Blood Urea Nitrogen 13 mg/dl (7-17); Creatinine Clearance Estimated 120 mL/min (50-200); Estimated Glomerular Filt Rate 77 ml/min (>60); GFR (African American) 93 ML/MIN (>60)
[2023-11-21 12:57] LABS: Alanine Aminotransferase 36 U/L (12-78); Albumin Level 4.8 g/dl (3.5-5.0); Albumin/Globulin Ratio 1.5 (1.1-1.8); Alkaline Phosphatase 99 U/L (38-126); Anion Gap 8.3 mEq/L (5-15); Aspartate Amino Transferase 37 U/L (14-36); Bilirubin,Total 0.6 mg/dl (0.2-1.3); Calcium 9.8 mg/dl (8.4-10.2); Carbon Dioxide 31 mmol/L (22.0-30.0); Globulin 3.2 g/dL (1.3-3.2); Glucose 138 mg/dl (74-100)
[2023-11-21] MEDS: ACETAMINOPHEN 500MG TAB 1000 MG PO (13:02)
[2023-11-21] MEDS: KETOROLAC 30MG/ML VIAL 30 MG IV (13:03)
[2023-11-21] MEDS: LIDOCAINE 5% TRANSDERMAL PATCH 1 EACH TP (13:03)
[2023-11-21] MEDS: diazePAM 10MG/2ML SYRINGE 5 MG IV (13:03)
[2023-11-21 13:30] VITALS: BP 109/76
[2023-11-21] MEDS: OXYCODONE 5MG IMMEDIATE RELEASE TABLET 5 MG PO (13:51)
[2023-11-21 14:39] VITALS: BP 109/76; PULSE 80; RESP 16; TEMP 36.6
== END 2023-11-21 14:40 | disposition home or self-care (01) ==
PROVIDERS: Emergency Provider Emergency Medicine
DX: M54.2 Cervicalgia (principal); M54.12 Radiculopathy, cervical region; I10 Essential (primary) hypertension; E78.5 Hyperlipidemia, unspecified
CPT/HCPCS: 70498; 80053; 85025; 96374; 96375; 99285; Q9967

== ENCOUNTER 2024-01-26 16:39 | Outpatient (CLI) | payer OTHER, SELFPAY ==
--- NOTE | 2024-01-26 16:42 | MM_ITS ---
PROCEDURE INFORMATION: Exam: MG Bilateral Screening 3D Mammography Exam date and time: 01/26/2024 4:27 PM Age: 48 years old Clinical indication: Screening. Reports left breast pain last week for 3 days. No family history of breast cancer. TECHNIQUE: Imaging protocol: Bilateral Screening tomosynthesis and 2D mammography including computer-aided detection (CAD) when performed. COMPARISON: 1. MG MM DIG SCREENING MAMM BI W/CAD 10/23/2022 3:48 PM 2. MG MY Digital Dx BILAT 04/21/2016 9:01 AM FINDINGS: MAMMOGRAPHY: Breast composition: There are scattered areas of fibroglandular density. Mass: No suspicious mass. Architectural distortion: None. Calcifications: No suspicious calcifications. Asymmetric density: None. Skin thickening: None. Axillary adenopathy: None. IMPRESSION: See comment Note history of left breast pain, if focal or clinical concern, sonography can be added.Further evaluation of a painful abnormality should be based on clinical grounds regardless of radiographic findings or lack thereof. No mammographic evidence of malignancy. Annual screening is recommended unless otherwise clinically indicated. ASSESSMENT: BI-RADS Category 1: Negative
== END 2024-01-26 23:59 | disposition home or self-care (01) ==
LOC: RAD 16:40
PROVIDERS: PCP Nurse Practitioner; Visit Provider Nurse Practitioner
DX: Z12.31 Encounter for screening mammogram for malignant neoplasm of breast (principal); N64.4 Mastodynia
CPT/HCPCS: 77063; 77067

== ENCOUNTER 2024-04-01 00:21 | Emergency (ER) | payer OTHER, SELFPAY ==
[2024-04-01] VITALS (8 sets, daily range): BP systolic 118–154; BP diastolic 65–115; PULSE 62–93; RESP 13–20; TEMP 36.4–36.7; O2SAT 96–99; BMI 29.3
--- NOTE | 2024-04-01 00:24 | HMH.EDGENADL ---
Discharge Plan Disposition Patient Disposition: Home, Self-Care Condition: Good Prescriptions Prescriptions: No Action albuterol sulfate [ProAir HFA] 90 mcg/actuation HFA aerosol inhaler 2 puff INHALATION BIDP PRN (Reason: Shortness Of Breath) metoprolol succinate 25 mg tablet extended release 24 hr 25 mg PO DAILY Qty: 30 5RF ondansetron 8 mg tablet,disintegrating 8 mg PO PRN atorvastatin [Lipitor] 40 mg tablet 80 mg PO DAILY metformin 500 mg tablet 500 mg PO DAILY tizanidine 2 mg tablet 2 mg PO PRN Qulipta 60 mg tablet 60 mg PO DAILY lorazepam 1 mg tablet 1 mg feeding tube HS hydrocodone-acetaminophen 10-325 mg tablet 1 tab PO Q6H PRN promethazine 25 mg tablet 25 mg PO Q12H PRN cyclobenzaprine 10 mg tablet 10 mg PO PRN amlodipine [Norvasc] 5 mg tablet 5 mg PO DAILY Qty: 30 5RF Nurtec ODT 75 mg tablet,disintegrating 75 mg PO ONCE PRN (Reason: MIGRAINE) aspirin 81 mg Tablet,Delayed Release (Dr/Ec) 81 mg PO DAILY Qty: 30 0RF Referrals Follow up/Referrals: Cinda Ring APRN [Primary Care Provider] - See instructions Activity Restrictions/Add. Instructions Additional Instructions/Restrictions: Please follow-up with your primary care provider. Please continue taking medications as prescribed. Please return to the emergency department if you develop any new or worsening symptoms or become concerned for your health. Clinical Impressions Clinical Impression: Back muscle spasm Instructions Patient Instructions: DI for Low Back Pain Discharge ED Provider: Marquis Timmons General Adult HPI General Chief complaint: Back Pain/Injury Stated complaint: back spasms Time Seen by Provider: 04/01/24 00:24 History of Present Illness HPI narrative: 48-year-old female with history of hypertension hyperlipidemia IBS presents with back spasm. She reports that 27 years ago she was lifting her daughter and injured her back. Ever since then she has intermittent sporadic spasms of the mid thoracic back muscles below the scapula. She reports that her pain today is consistent with these prior episodes. It is worse in the right side tonight. She denies any chest pain abdominal pain nausea vomiting urinary symptoms numbness or weakness etc. She reports that she was previously given cocktails including Norflex and tramadol which sometimes helps. She was previously getting Botox to the region and is scheduled to receive her next injection in a month. She reports that injected lidocaine in the area has not been helpful in the past. She reports that her symptoms today are entirely consistent with her chronic muscle spasm and do not feel like anything else. Related Data Home Medications Medication Instructions Recorded Confirmed albuterol sulfate 90 mcg/actuation 2 puff inhalation BIDP PRN 01/05/22 03/13/24 aerosol inhaler (ProAir HFA) Shortness Of Breath atogepant 60 mg tablet (Qulipta) 60 mg PO DAILY 06/16/23 03/13/24 atorvastatin 40 mg tablet (Lipitor) 80 mg PO DAILY 06/16/23 03/13/24 metformin 500 mg tablet 500 mg PO DAILY 06/16/23 03/13/24 ondansetron 8 mg disintegrating 8 mg PO PRN 06/16/23 03/13/24 tablet tizanidine 2 mg tablet 2 mg PO PRN 06/16/23 03/13/24 cyclobenzaprine 10 mg tablet 10 mg PO PRN 08/09/23 03/13/24 hydrocodone 10 mg-acetaminophen 1 tab PO Q6H PRN 08/09/23 03/13/24 325 mg tablet lorazepam 1 mg tablet 1 mg feeding tube HS 08/09/23 03/13/24 promethazine 25 mg tablet 25 mg PO Q12H PRN 08/09/23 03/13/24 rimegepant 75 mg disintegrating 75 mg PO ONCE PRN MIGRAINE 08/09/23 03/13/24 tablet (Nurtec ODT) Previous Rx's Medication Instructions Recorded aspirin 81 mg tablet,delayed 81 mg PO DAILY #30 tabs 02/01/23 release metoprolol succinate 25 mg 25 mg PO DAILY #30 tabs 02/09/23 tablet,extended release 24 hr amlodipine 5 mg tablet (Norvasc) 5 mg PO DAILY #30 tabs 11/03/23 Allergies Allergy/AdvReac Type Severity Reaction Status Date / Time fentanyl Allergy Severe Anxiety Verified 03/13/24 10:10 ciprofloxacin [From Cipro] Allergy Mild Verified 03/13/24 10:10 morphine Allergy Verified 03/13/24 10:10 [facility] Disclaimer: The information contained in this section may have been updated after the patient was seen, as this information can be updated by other users. Medical History 2nd degree AV block History of stroke Takotsubo cardiomyopathy Active follow-up with cardiology team at [facility], (Dr. Eugene). Last seen following hospital discharge from [facility] on 07/09/2023 and scheduled for follow-up in a year. Ejection fraction apparently back to normal, EKG within normal range. Brain aneurysm H/O chronic meningitis Abnormal uterine bleeding Pelvic pain Asthma Endometriosis Migraine Anxiety Irritable bowel syndrome (IBS) History of heart attack History of anemia Menorrhagia Angina pectoris syndrome Most recent chest pain episode 09/12/2022. Headache Depression HLD (hyperlipidemia) HTN (hypertension) Need to follow-up with PCP persistent elevation of BP. History of meningitis Brain aneurysm Status post coiling, asymptomatic. Dizziness Dyspnea Myocardial infarct Sacroiliitis Surgical History S/P laparoscopic hysterectomy with bilateral oophorectomy 01/25/23 History of endometrial ablation 11/11/22 History of cholecystectomy H/O tubal ligation Hx of cholecystectomy History of arthroscopy of right shoulder H/O cerebral aneurysm repair Family History Mother Ovarian cancer Family history of stroke Grandmother Lung cancer Other Family history of diabetes mellitus type II Family history of myocardial infarction No significant family history Social History Smoking Status: Unknown if ever smoked alcohol intake: never substance use type: denies use current occupational status: employed Travel in the last 8 weeks: None household members: significant other and children housing: house lives independently: Yes marital status: education level: other current occupational exposures/hazards: No caffeine: Yes do you feel safe at home: Yes victim of physical abuse: No victim of emotional abuse: No victim of sexual abuse: No ROS Obtained: Yes All systems reviewed & no additional complaints except as documented Physical Exam General General appearance: alert and in distress (Grimacing, clenching, tensing up, crying secondary to pain) Head Head exam: atraumatic and normocephalic Eye Eye exam: Present normal appearance, PERRL and EOMI ENT ENT exam: Present normal oropharynx and normal external ear exam Neck Neck exam: Present normal inspection and full ROM Chest Chest inspection: Present normal inspection and symmetric chest wall rise; Absent tenderness Respiratory Respiratory exam: Present normal lung sounds bilaterally; Absent respiratory distress Cardiovascular Cardiovascular exam: Present regular rate and normal rhythm Abdominal Exam Abdominal exam: Present soft; Absent distention, tenderness or guarding Extremities Exam Extremities exam: Present normal inspection; Absent edema or joint swelling Back Exam Back exam: Present normal inspection and tenderness (Focal right paraspinal muscular tenderness in the mid thoracic region) Neurological Exam Neurological exam: Present alert and oriented X3; Absent motor sensory deficit Psychiatric Psychiatric exam: Present normal affect and normal mood Skin Skin exam: Present warm, dry and normal color Lymphatic Lymphatic Findings: no adenopathy Medical Decision Making Medical Records Medical records reviewed: Yes I reviewed the patient's medical records. Tim Inquiry Pt receiving controlled substance: No Tim was queried for this patient: No Vital Signs: 04/01/24 00:28 04/01/24 00:30 04/01/24 01:00 Temperature 97.6 F Temperature Source Oral Pulse Rate 85 74 Pulse Rate [Right Brachial] 92 H Respiratory Rate 19 18 20 Blood Pressure 141/92 H 153/103 H Blood Pressure [Right Arm] 154/115 H Blood Pressure Mean [Right Arm] 128 Blood Pressure Source [Right Arm] Automatic Cuff Blood Pressure Position [Right Arm] Sitting 02 Sat by Pulse Oximetry 99 99 97 Oxygen Delivery Method Room Air Room Air Room Air 04/01/24 01:30 04/01/24 01:40 04/01/24 02:00 Temperature Temperature Source Pulse Rate 76 85 81 Pulse Rate [Right Brachial] Respiratory Rate 16 16 13 Blood Pressure 146/85 H 153/97 H 147/94 H Blood Pressure [Right Arm] Blood Pressure Mean [Right Arm] Blood Pressure Source [Right Arm] Blood Pressure Position [Right Arm] 02 Sat by Pulse Oximetry 97 96 96 Oxygen Delivery Method Room Air Room Air Room Air 04/01/24 02:17 04/01/24 03:29 Temperature 98.1 F Temperature Source Oral Pulse Rate 93 H 62 Pulse Rate [Right Brachial] Respiratory Rate 20 15 Blood Pressure 145/85 H 118/65 Blood Pressure [Right Arm] Blood Pressure Mean [Right Arm] Blood Pressure Source [Right Arm] Blood Pressure Position [Right Arm] 02 Sat by Pulse Oximetry 96 Oxygen Delivery Method Nasal Cannula Room Air Lab Data Lab results reviewed: Yes I reviewed the patient's lab results. Orders (Tests/Meds): ED MEDICATIONS Discontinued Medications Generic Name Dose Route Start Last Admin Trade Name Gregory PRN Reason Stop Dose Admin Acetaminophen 1,000 mg 04/01/24 00:36 04/01/24 00:47 Acetaminophen 500mg Tab PO 04/01/24 00:37 1,000 mg ONCE ONE Administration Hydromorphone HCl 0.5 mg 04/01/24 00:34 04/01/24 00:47 Hydromorphone 2mg/Ml Syringe IM 04/01/24 00:35 0.5 mg ONCE ONE Administration Ketamine HCl 25 mg 04/01/24 01:23 04/01/24 01:33 Ketamine 500mg/10ml Vial IV 04/01/24 01:24 Not Given ONCE ONE Ketamine HCl 25 mg 04/01/24 01:32 04/01/24 01:33 Ketamine 50mg/1ml Syringe IV 04/01/24 01:33 25 mg ONCE ONE Administration Lidocaine 1 each 04/01/24 01:23 04/01/24 01:31 Lidocaine 5% Transdermal Patch TP 04/01/24 01:24 1 each ONCE ONE Administration Methocarbamol 1,000 mg 04/01/24 00:34 04/01/24 00:48 Methocarbamol 500mg Tablet PO 04/01/24 00:35 1,000 mg ONCE ONE Administration Midazolam HCl 3 mg 04/01/24 00:34 04/01/24 00:47 Midazolam 5mg/Ml 1ml Vial IM 04/01/24 00:35 3 mg ONCE ONE Administration Midazolam HCl 5 mg 04/01/24 02:14 04/01/24 02:15 Midazolam 5mg/Ml 1ml Vial IV 04/01/24 02:15 5 mg ONCE ONE Administration Medical Decision Narrative: 48-year-old female with history as documented above presents with exacerbation of her chronic focal muscle spasm in the back.. History was obtained interactive discussion with patient, family. On arrival, patient is an extremis secondary to pain, moving all extremities spontaneously. Full physical exam performed and significant for no focal neurologic deficits, focal tenderness in the spot of muscle spasm. Differential includes but is not limited to muscle spasm, rib fracture, aortic pathology, ureterolithiasis,. I asked the patient repeatedly if she had any concern that she could have some other more significant pathology going on. I asked if she wanted a laboratory or imaging evaluation and she reported that she felt like this was entirely consistent with her prior episodes and she did not think that workup would be helpful. Patient was given multiple rounds of medications including IM Dilaudid, IM Versed, p.o. Tylenol, p.o. Robaxin, IV pain dose ketamine 0.3 mg/kg, IV Versed. Patient was not having any significant improvement in pain until she was given the IV Versed and became drowsy. On re-evaluation, patient reports significant improvement in symptoms. interactive discussion was had with patient regarding symptom control at home. Patient was discharged in stable condition. return precautions given. Procedures Risk/Benefits of Procedure(s) Were Explained: Yes Critical Care Critical Care Time Critical Care Time: No
[2024-04-01] MEDS: MIDAZOLAM 5MG/ML 1ML VIAL 3 MG IM (00:47)
[2024-04-01] MEDS: HYDROMORPHONE 2MG/ML SYRINGE 0.5 MG IM (00:47)
[2024-04-01] MEDS: ACETAMINOPHEN 500MG TAB 1000 MG PO (00:47)
[2024-04-01] MEDS: METHOCARBAMOL 500MG TABLET 1000 MG PO (00:48)
--- NOTE | 2024-04-01 01:30 | PC.NURSE ---
IV started on patient while in the room patient stated she was still in excruciating pain.
[2024-04-01] MEDS: LIDOCAINE 5% TRANSDERMAL PATCH 1 EACH TP (01:31)
[2024-04-01] MEDS: KETAMINE 50MG/1ML SYRINGE 25 MG IV (01:33)
[2024-04-01] MEDS: MIDAZOLAM 5MG/ML 1ML VIAL 5 MG IV (02:15)
== END 2024-04-01 03:37 | disposition home or self-care (01) ==
PROVIDERS: Emergency Provider Emergency Medicine; PCP Nurse Practitioner
DX: M62.830 Muscle spasm of back (principal)
CPT/HCPCS: 96372; 96374; 96375; 99284; J1170; J2250

== ENCOUNTER 2024-05-03 03:42 | Emergency (ER) | payer OTHER, SELFPAY ==
[2024-05-03] VITALS (11 sets, daily range): BP systolic 122–185; BP diastolic 79–114; PULSE 63–78; RESP 18; TEMP 36.5–36.9; O2SAT 95–99; BMI 29.8
--- NOTE | 2024-05-03 03:49 | ED_ITS ---
Discharge Plan Disposition Patient Disposition: Home, Self-Care Prescriptions Prescriptions: New oxycodone 5 mg tablet 5 mg PO Q8H PRN (Reason: pain) Qty: 12 0RF No Action albuterol sulfate [ProAir HFA] 90 mcg/actuation HFA aerosol inhaler 2 puff INHALATION BIDP PRN (Reason: Shortness Of Breath) metoprolol succinate 25 mg tablet extended release 24 hr 25 mg PO DAILY Qty: 30 5RF ondansetron 8 mg tablet,disintegrating 8 mg PO PRN atorvastatin [Lipitor] 40 mg tablet 80 mg PO DAILY metformin 500 mg tablet 500 mg PO DAILY tizanidine 2 mg tablet 2 mg PO PRN Qulipta 60 mg tablet 60 mg PO DAILY lorazepam 1 mg tablet 1 mg feeding tube HS hydrocodone-acetaminophen 10-325 mg tablet 1 tab PO Q6H PRN promethazine 25 mg tablet 25 mg PO Q12H PRN cyclobenzaprine 10 mg tablet 10 mg PO PRN amlodipine [Norvasc] 5 mg tablet 5 mg PO DAILY Qty: 30 5RF Nurtec ODT 75 mg tablet,disintegrating 75 mg PO ONCE PRN (Reason: MIGRAINE) aspirin 81 mg Tablet,Delayed Release (Dr/Ec) 81 mg PO DAILY Qty: 30 0RF Referrals Follow up/Referrals: Cinda Ring APRN [Primary Care Provider] - See instructions Clinical Impressions Clinical Impression: Zoster sine herpete Instructions Patient Instructions: DI for Acute Abdominal Pain Print Language Print Language: Chinese Discharge ED Provider: Marquis Timmons General Adult HPI General Chief complaint: Abdominal Pain Stated complaint: pain in abd, internal shingles Time Seen by Provider: 05/03/24 03:49 History of Present Illness HPI narrative: 48-year-old female with coronary artery disease, prior stroke, reported chronic aseptic meningitis presents for pain. She reports that she is concerned she could have shingles though she does not have a rash. She reports that she has severe skin tenderness and pain starting in the right CVA radiating around approximately to the umbilicus. She reports prior cholecystectomy and denies internal pain. 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 Related Data Home Medications ?Medication ?Instructions ?Recorded ?Confirmed albuterol sulfate 90 mcg/actuation 2 puff inhalation BIDP PRN 01/05/22 03/13/24 aerosol inhaler (ProAir HFA) Shortness Of Breath atogepant 60 mg tablet (Qulipta) 60 mg PO DAILY 06/16/23 03/13/24 atorvastatin 40 mg tablet (Lipitor) 80 mg PO DAILY 06/16/23 03/13/24 metformin 500 mg tablet 500 mg PO DAILY 06/16/23 03/13/24 ondansetron 8 mg disintegrating 8 mg PO PRN 06/16/23 03/13/24 tablet tizanidine 2 mg tablet 2 mg PO PRN 06/16/23 03/13/24 cyclobenzaprine 10 mg tablet 10 mg PO PRN 08/09/23 03/13/24 hydrocodone 10 mg-acetaminophen 1 tab PO Q6H PRN 08/09/23 03/13/24 325 mg tablet lorazepam 1 mg tablet 1 mg feeding tube HS 08/09/23 03/13/24 promethazine 25 mg tablet 25 mg PO Q12H PRN 08/09/23 03/13/24 rimegepant 75 mg disintegrating 75 mg PO ONCE PRN MIGRAINE 08/09/23 03/13/24 tablet (Nurtec ODT) Previous Rx's ?Medication ?Instructions ?Recorded aspirin 81 mg tablet,delayed 81 mg PO DAILY #30 tabs 02/01/23 release metoprolol succinate 25 mg 25 mg PO DAILY #30 tabs 02/09/23 tablet,extended release 24 hr amlodipine 5 mg tablet (Norvasc) 5 mg PO DAILY #30 tabs 11/03/23 oxycodone 5 mg tablet 5 mg PO Q8H PRN pain #12 tabs 05/03/24 Allergies Allergy/AdvReac Type Severity Reaction Status Date / Time fentanyl Allergy Severe Anxiety Verified 03/13/24 10:10 ciprofloxacin [From Cipro] Allergy Mild Verified 03/13/24 10:10 morphine Allergy Verified 03/13/24 10:10 [facility] Disclaimer: The information contained in this section may have been updated after the patient was seen, as this information can be updated by other users. Medical History 2nd degree AV block History of stroke Takotsubo cardiomyopathy Active follow-up with cardiology team at [facility], (Dr. Eugene). Last seen following hospital discharge from [facility] on 07/09/2023 and scheduled for follow-up in a year. Ejection fraction apparently back to normal, EKG within normal range. Brain aneurysm H/O chronic meningitis Abnormal uterine bleeding Pelvic pain Asthma Endometriosis Migraine Anxiety Irritable bowel syndrome (IBS) History of heart attack History of anemia Menorrhagia Angina pectoris syndrome Most recent chest pain episode 09/12/2022. Headache Depression HLD (hyperlipidemia) HTN (hypertension) Need to follow-up with PCP persistent elevation of BP. History of meningitis Brain aneurysm Status post coiling, asymptomatic. Dizziness Dyspnea Myocardial infarct Sacroiliitis Surgical History S/P laparoscopic hysterectomy with bilateral oophorectomy 01/25/23 History of endometrial ablation 11/11/22 History of cholecystectomy H/O tubal ligation Hx of cholecystectomy History of arthroscopy of right shoulder H/O cerebral aneurysm repair Family History Mother Ovarian cancer Family history of stroke Grandmother Lung cancer Other Family history of diabetes mellitus type II Family history of myocardial infarction No significant family history Social History Smoking Status: Unknown if ever smoked alcohol intake: never substance use type: denies use current occupational status: employed Travel in the last 8 weeks: None household members: significant other and children housing: house lives independently: Yes marital status: education level: other current occupational exposures/hazards: No caffeine: Yes do you feel safe at home: Yes victim of physical abuse: No victim of emotional abuse: No victim of sexual abuse: No ROS Obtained: Yes All systems reviewed & no additional complaints except as documented Physical Exam General General appearance: alert and in no apparent distress Head Head exam: atraumatic and normocephalic Eye Eye exam: Present normal appearance, PERRL and EOMI ENT ENT exam: Present normal oropharynx and normal external ear exam Neck Neck exam: Present normal inspection and full ROM Chest Chest inspection: Present normal inspection and symmetric chest wall rise; Absent tenderness Respiratory Respiratory exam: Present normal lung sounds bilaterally; Absent respiratory distress Cardiovascular Cardiovascular exam: Present regular rate and normal rhythm Abdominal Exam Abdominal exam: Present soft; Absent distention, tenderness or guarding Extremities Exam Extremities exam: Present normal inspection; Absent edema or joint swelling Back Exam Back exam: Present normal inspection and tenderness (Significant skin tenderness in a bandlike distribution around the right CVA/upper abdomen, no rash or skin lesions) Neurological Exam Neurological exam: Present alert and oriented X3; Absent motor sensory deficit Psychiatric Psychiatric exam: Present normal affect and normal mood Skin Skin exam: Present warm, dry and normal color Lymphatic Lymphatic Findings: no adenopathy Medical Decision Making Medical Records Medical records reviewed: Yes I reviewed the patient's medical records. Tim Inquiry Pt receiving controlled substance: No Tim was queried for this patient: No Vital Signs: 05/03/24 03:45 05/03/24 04:00 05/03/24 04:15 Temperature 97.7 F Temperature Source Oral Pulse Rate 75 73 Pulse Rate [Left Radial] 72 Respiratory Rate 18 Blood Pressure 154/81 H 122/98 H Blood Pressure [Right Arm] 160/101 H Blood Pressure Mean 105 100 Blood Pressure Mean [Right Arm] 120 Blood Pressure Source [Right Arm] Automatic Cuff Blood Pressure Position [Right Arm] Sitting 02 Sat by Pulse Oximetry 99 96 97 Oxygen Delivery Method Room Air 05/03/24 04:20 05/03/24 04:30 Temperature Temperature Source Pulse Rate 69 72 Pulse Rate [Left Radial] Respiratory Rate Blood Pressure 172/95 H 152/79 H Blood Pressure [Right Arm] Blood Pressure Mean 120 108 Blood Pressure Mean [Right Arm] Blood Pressure Source [Right Arm] Blood Pressure Position [Right Arm] 02 Sat by Pulse Oximetry 98 98 Oxygen Delivery Method Lab Data Lab results reviewed: Yes I reviewed the patient's lab results. Lab Results 05/03/24 04:20: WBC 11.6 H, RBC 4.85, Hgb 13.9, Hct 41.1, MCV 84.7, MCH 28.6, MCHC 33.8, RDW 14.1, Plt Count 382, MPV 7.3 L, Neut % (Auto) 45.3, Lymph % (Auto) 47.6, [place] % (Auto) 5.3, Eos % (Auto) 0.6, Baso % (Auto) 1.3, Neut # (Auto) 5.3, Lymph # (Auto) 5.5 H, [place] # (Auto) 0.6, Eos # (Auto) 0.1, Baso # (Auto) 0.2, Sodium 142, Potassium 3.6, Chloride 106, Carbon Dioxide 30, Anion Gap 9.6, BUN 11, Creatinine 0.70, Estimated Creat Clear 133, Estimated GFR 90, Est GFR ( Amer) 109, Glucose 118 H, Calcium 9.5, Total Bilirubin 0.3, AST 35, ALT 37, Alkaline Phosphatase 88, Total Protein 7.3, Albumin 4.3, Globulin 3.0, Albumin/Globulin Ratio 1.4, Lipase 150, Urine Color Yellow, Urine Appearance Clear, Urine pH 7.5, Ur Specific [place] 1.020, Urine Protein Negative, Urine Glucose (UA) Negative, Urine Ketones Negative, Urine Blood Negative, Urine Nitrate Negative, Urine Bilirubin Negative, Urine Urobilinogen 0.2, Ur Leukocyte Esterase Negative, Urine RBC None, Urine WBC 3-5, Ur Squamous Epith Cells 5-10, Urine Bacteria Trace 05/03/24 04:20 05/03/24 04:20 Orders (Tests/Meds): ED MEDICATIONS Generic Name Dose Route Start Last Admin Trade Name Frejaziel PRN Reason Stop Dose Admin Sodium Chloride 10 ml 05/03/24 04:52 05/03/24 04:53 Sodium Chloride 0.9% 10ml Syr (Rad Only) IV 06/02/24 04:51 10 ml NEEDED PRN Administration Maintain IV Site Discontinued Medications Generic Name Dose Route Start Last Admin Trade Name Freq PRN Reason Stop Dose Admin Acetaminophen 1,000 mg 05/03/24 04:03 05/03/24 04:09 Acetaminophen 500mg Tab PO 05/03/24 04:04 1,000 mg ONCE ONE Administration Hydromorphone HCl 0.5 mg 05/03/24 05:35 05/03/24 05:36 Hydromorphone 2mg/Ml Syringe IV 05/03/24 05:36 0.5 mg ONCE ONE Administration Hydromorphone HCl 1 mg 05/03/24 05:50 05/03/24 05:54 Hydromorphone 2mg/Ml Syringe IV 05/03/24 05:51 1 mg ONCE ONE Administration Iopamidol 75 ml 05/03/24 04:52 05/03/24 04:53 Iopamidol-370 (76%);100ml Bottle IV 05/03/24 04:53 75 ml ONCE ONE Administration Ketorolac Tromethamine 30 mg 05/03/24 04:03 05/03/24 04:09 Ketorolac 30mg/Ml Vial IV 05/03/24 04:04 30 mg ONCE ONE Administration Lidocaine 1 each 05/03/24 04:03 05/03/24 04:09 Lidocaine 5% Transdermal Patch TP 05/03/24 04:04 1 each ONCE ONE Administration ORDERS Category Date Time Status CT abdomen pelvis w con Stat Cat Scan 05/03/24 04:03 Completed CBC w/Auto Diff [Complete Blood Count Auto Diff] Stat Lab 05/03/24 04:20 Completed CMP [Comprehensive Metabolic Panel] Stat Lab 05/03/24 04:20 Completed Lipase Stat Lab 05/03/24 04:20 Completed UA [Urinalysis and Microscopic] Stat Lab 05/03/24 04:20 Completed Varicella Zoster IgG Stat Lab 05/03/24 04:20 Received Medical Decision Narrative: 48-year-old female with extensive past medical history presents for pain wrapping around the right side of her abdomen, concerning for zoster neuralgia, the patient has no rash. History was obtained via interactive discussion with patient. On arrival, patient is [afebrile, hemodynamically stable, satting appropriately, alert, oriented x4, GCS 15], moving all extremities spontaneously. Full physical exam performed and significant for findings as documented above. Differential includes but is not limited to zoster sine herpete, varicella- zoster reactivation, liver pathology, renal pathology, neuralgia. Patient was given Tylenol, lidocaine patch, Toradol for symptomatic management and correction of underlying abnormalities. Workup initiated including CBC CMP varicella-zoster IgG, UA, CT abdomen pelvis with IV contrast. On re-evaluation, patient [remains afebrile, HD stable.] Pain is uncontrolled, she was given additional doses of Dilaudid with some improvement. Laboratory workup independently interpreted by me and significant for minimal leukocytosis, normal LFTs, normal renal function, urinalysis does not appear consistent with infection.. Imaging independently interpreted by me and significant for unremarkable CT without evidence of renal or liver lesions, no stranding or infection of the skin.. See radiology read for full review of final results. Given patient history, exam and workup, patient's presentation most likely represents zoster sine herpete. She does not appear to have a disseminated infection that would require admission or IV antiviral therapy. She had her PCP will follow-up on the IgG that was sent. Given the severity of her pain, she was discharged with prescription for oxycodone and instructed to continue taking acyclovir and prednisone and gabapentin as previously prescribed.. Procedures Risk/Benefits of Procedure(s) Were Explained: Yes Critical Care Critical Care Time Critical Care Time: No
--- NOTE | 2024-05-03 04:03 | CT_ITS ---
PROCEDURE INFORMATION: Exam: CT Abdomen And Pelvis With Contrast Exam date and time: 05/03/2024 4:49 AM Age: 48 years old Clinical indication: Abdominal pain; Additional info: Ruq/r CVA pain TECHNIQUE: Imaging protocol: Computed tomography of the abdomen and pelvis with contrast. Radiation optimization: All CT scans at this facility use at least one of these dose optimization techniques: automated exposure control; mA and/or kV adjustment per patient size (includes targeted exams where dose is matched to clinical indication); or iterative reconstruction. Contrast material: ISOVUE; Contrast volume: 75 ml; Contrast route: IV; COMPARISON: US TRANSVAGINAL 10/23/2022 3:38 PM FINDINGS: Liver: Normal. No mass. Gallbladder and biliary ducts: Cholecystectomy. Pancreas: Normal. No ductal dilation. Spleen: Normal. No splenomegaly. Adrenal glands: Normal. No mass. Kidneys and ureters: Normal. No hydronephrosis. Stomach and bowel: Moderate retained stool no ileus or obstruction. No obstruction. No mucosal thickening. Appendix: No evidence of appendicitis. Intraperitoneal space: Unremarkable. No free air. No significant fluid collection. Vasculature: Unremarkable. No abdominal aortic aneurysm. Lymph nodes: Unremarkable. No enlarged lymph nodes. Urinary bladder: Unremarkable as visualized. Reproductive: Hysterectomy. Bones/joints: Unremarkable. No acute fracture. Soft tissues: Unremarkable. IMPRESSION: 1. No acute process noted. 2. Cholecystectomy and hysterectomy. 3. Moderate retained stool, no ileus or obstruction.
[2024-05-03] MEDS: LIDOCAINE 5% TRANSDERMAL PATCH 1 EACH TP (04:09)
[2024-05-03] MEDS: ACETAMINOPHEN 500MG TAB 1000 MG PO (04:09)
[2024-05-03] MEDS: KETOROLAC 30MG/ML VIAL 30 MG IV (04:09)
[2024-05-03 04:29] LABS: Appearance,Urine CLEAR (Clear); Bilirubin,Urine Negative (Negative); Blood, Urine Negative (Negative); Color,Urine YELLOW (Yellow); Glucose,Urine (UA) Negative (Negative); Ketones,Urine Negative (Negative); Leukocyte Esterase,Urine Negative (Negative); Microscopic, Urine URINE MICROSCOPIC (MICROSCOPIC); Nitrate,Urine Negative (Negative); PH,Urine 7.5 (5.0-8.5); Protein,Urine Negative (Negative); Urobilinogen,Urine 0.2 EU/dl (0.2)
[2024-05-03 04:30] LABS: Basophils # 0.2 K/mm3 (0-0.2); Basophils % 1.3 % (0.1-2.0); Eosinophils # 0.1 K/mm3 (0.0-0.4); Eosinophils % 0.6 % (0.1-12.0); Hematocrit 41.1 % (37.0-47.0); Hemoglobin 13.9 g/dL (12.2-16.2); Lymphocytes # 5.5 K/mm3 (0.7-4.5); Lymphocytes % 47.6 % (10-50); Mean Corpuscular HGB Conc 33.8 g/dL (31.8-35.4); Mean Corpuscular Hemoglobin 28.6 pg (27.0-31.2); Mean Corpuscular Volume 84.7 fl (81-99); Mean Platelet Volume 7.3 fl (7.4-10.4); Monocytes # 0.6 K/mm3 (0.1-1.0); Monocytes % 5.3 % (1.7-9.3); Neutrophils # 5.3 K/mm3 (1.8-7.8); Neutrophils % 45.3 % (37.0-80.0); Platelet Count 382 K/mm3 (142-424); Red Blood Count 4.85 M/mm3 (4.20-5.40); Red Cell Distribution Width 14.1 % (11.5-17.5); White Blood Count 11.6 K/mm3 (4.8-10.8)
[2024-05-03 04:36] LABS: Albumin Level 4.3 g/dl (3.5-5.0); Chloride 106 mmol/L (98-107); Potassium 3.6 mmoL/L (3.5-5.1); Sodium 142 mmol/L (136-145)
[2024-05-03 04:37] LABS: Bacteria,Urine Trace /lpf
[2024-05-03 04:39] LABS: Alanine Aminotransferase 37 U/L (12-78); Alkaline Phosphatase 88 U/L (38-126); Aspartate Amino Transferase 35 U/L (14-36); Bilirubin,Total 0.3 mg/dl (0.2-1.3); Blood Urea Nitrogen 11 mg/dl (7-17); Carbon Dioxide 30 mmol/L (22.0-30.0); Creatinine Clearance Estimated 133 mL/min (50-200); Estimated Glomerular Filt Rate 90 ml/min (>60); GFR (African American) 109 ML/MIN (>60); Lipase 150 U/L (23-300); Total Protein,Serum 7.3 g/dl (6.3-8.2)
[2024-05-03 04:40] LABS: Calcium 9.5 mg/dl (8.4-10.2); Glucose 118 mg/dl (74-100)
[2024-05-03] MEDS: SODIUM CHLORIDE 0.9% 10ML SYR (RAD ONLY) 10 ML IV (04:53)
[2024-05-03] MEDS: IOPAMIDOL-370 (76%);100ML BOTTLE 75 ML IV (04:53)
[2024-05-03 05:11] LABS: Anion Gap 9.6 mEq/L (5-15)
[2024-05-03 05:13] LABS: Albumin/Globulin Ratio 1.4 (1.1-1.8)
[2024-05-03] MEDS: HYDROMORPHONE 2MG/ML SYRINGE 0.5 MG IV (05:36)
--- NOTE | 2024-05-03 05:51 | PC.NURSE ---
Rounded on pt at this time, pt reports dilaudid did not help with her pain at all. Dr Timmons notified.
[2024-05-03] MEDS: HYDROMORPHONE 2MG/ML SYRINGE 1 MG IV (05:54)
--- NOTE | 2024-05-03 06:29 | PC.NURSE ---
Pt states she has a ride but they cant be here until 0700
[2024-05-03] MEDS: OXYCODONE 5MG IMMEDIATE RELEASE TABLET 5 MG PO (06:48)
--- NOTE | 2024-05-03 06:54 | PC.NURSE ---
Pt called out stating her pain was back . MD Timmons notified. Orders carried out per MAR
--- NOTE | 2024-05-03 07:09 | PC.NURSE ---
Pts fiance to ED to pick pt up. pt walked to vehicle where pts david is driving her home
[2024-05-04 10:40] LABS: Varicella Zoster IgG 944 index (Immune >165)
== END 2024-05-03 07:10 | disposition home or self-care (01) ==
PROVIDERS: Emergency Provider Emergency Medicine; PCP Nurse Practitioner
DX: B02.9 Zoster without complications (principal); R10.9 Unspecified abdominal pain; I10 Essential (primary) hypertension; E78.5 Hyperlipidemia, unspecified
CPT/HCPCS: 74177; 80053; 81001; 83690; 85025; 86787; 96374; 96375; 99285; J1170; J1885; Q9967

== ENCOUNTER 2024-05-04 23:11 | Observation (INO) | payer OTHER, SELFPAY ==
[2024-05-04 23:12] VITALS: BP 154/98; PULSE 91; RESP 20; TEMP 36.9; O2SAT 98; BMI 29.8
--- NOTE | 2024-05-04 23:21 | ED_ITS ---
Discharge Plan Disposition Patient Disposition: Admitted Clinical Impressions Clinical Impression: Zoster sine herpete, Intractable pain Discharge ED Provider: Marquis Timmons General Adult HPI General Chief complaint: PAIN Stated complaint: internal shingles, severe pain R side Time Seen by Provider: 05/04/24 23:21 History of Present Illness HPI narrative: 48-year-old female presents for worsening right-sided pain. I saw her last night and diagnosed her with zoster sine herpete. Her symptoms began 1 week ago today. She has hyperesthesia and severe pain in the T8/T9 dermatome. Wraps from the back around towards the umbilicus. She has been on acyclovir, prednisone and gabapentin since shortly after the onset of symptoms. I gave her numerous medications last night in the ER to try to alleviate her pain with some success. She was unable to tolerate the pain at home with gabapentin and opiates. See prior note for full details of history and workup, but patient had CT of abdomen/pelvis and full labs that were unremarkable with exception of mild lymphocytosis. I sent off a zoster IgG which returned positive at 944. Patient reports headache that is chronic and unchanged for her. She reports that when she closes her eyes, she feels like she sees more light than normal. Other than that, she denies any vision changes, hearing changes, confusion, weakness, numbness or other neurologic symptoms to suggest central involvement. Related Data Home Medications ?Medication ?Instructions ?Recorded ?Confirmed albuterol sulfate 90 mcg/actuation 2 puff inhalation BIDP PRN 01/05/22 03/13/24 aerosol inhaler (ProAir HFA) Shortness Of Breath atogepant 60 mg tablet (Qulipta) 60 mg PO DAILY 06/16/23 03/13/24 atorvastatin 40 mg tablet (Lipitor) 80 mg PO DAILY 06/16/23 03/13/24 metformin 500 mg tablet 500 mg PO DAILY 06/16/23 03/13/24 ondansetron 8 mg disintegrating 8 mg PO PRN 06/16/23 03/13/24 tablet tizanidine 2 mg tablet 2 mg PO PRN 06/16/23 03/13/24 cyclobenzaprine 10 mg tablet 10 mg PO PRN 08/09/23 03/13/24 hydrocodone 10 mg-acetaminophen 1 tab PO Q6H PRN 08/09/23 03/13/24 325 mg tablet lorazepam 1 mg tablet 1 mg feeding tube HS 08/09/23 03/13/24 promethazine 25 mg tablet 25 mg PO Q12H PRN 08/09/23 03/13/24 rimegepant 75 mg disintegrating 75 mg PO ONCE PRN MIGRAINE 08/09/23 03/13/24 tablet (Nurtec ODT) Previous Rx's ?Medication ?Instructions ?Recorded aspirin 81 mg tablet,delayed 81 mg PO DAILY #30 tabs 02/01/23 release metoprolol succinate 25 mg 25 mg PO DAILY #30 tabs 02/09/23 tablet,extended release 24 hr amlodipine 5 mg tablet (Norvasc) 5 mg PO DAILY #30 tabs 11/03/23 oxycodone 5 mg tablet 5 mg PO Q8H PRN pain #12 tabs 05/03/24 Allergies Allergy/AdvReac Type Severity Reaction Status Date / Time fentanyl Allergy Severe Anxiety Verified 03/13/24 10:10 ciprofloxacin [From Cipro] Allergy Mild Verified 03/13/24 10:10 morphine Allergy Verified 03/13/24 10:10 [facility] Disclaimer: The information contained in this section may have been updated after the patient was seen, as this information can be updated by other users. Medical History 2nd degree AV block History of stroke Takotsubo cardiomyopathy Active follow-up with cardiology team at [facility], (Dr. Eugene). Last seen following hospital discharge from [facility] on 07/09/2023 and scheduled for follow-up in a year. Ejection fraction apparently back to normal, EKG within normal range. Brain aneurysm H/O chronic meningitis Abnormal uterine bleeding Pelvic pain Asthma Endometriosis Migraine Anxiety Irritable bowel syndrome (IBS) History of heart attack History of anemia Menorrhagia Angina pectoris syndrome Most recent chest pain episode 09/12/2022. Headache Depression HLD (hyperlipidemia) HTN (hypertension) Need to follow-up with PCP persistent elevation of BP. History of meningitis Brain aneurysm Status post coiling, asymptomatic. Dizziness Dyspnea Myocardial infarct Sacroiliitis Surgical History S/P laparoscopic hysterectomy with bilateral oophorectomy 04/24/23 History of endometrial ablation 11/11/22 History of cholecystectomy H/O tubal ligation Hx of cholecystectomy History of arthroscopy of right shoulder H/O cerebral aneurysm repair Family History Mother Ovarian cancer Family history of stroke Grandmother Lung cancer Other Family history of diabetes mellitus type II Family history of myocardial infarction No significant family history Social History Smoking Status: Never smoker alcohol intake: never substance use type: denies use current occupational status: employed Travel in the last 8 weeks: None household members: significant other and children housing: house lives independently: Yes marital status: education level: other current occupational exposures/hazards: No caffeine: Yes do you feel safe at home: Yes victim of physical abuse: No victim of emotional abuse: No victim of sexual abuse: No ROS Obtained: Yes All systems reviewed & no additional complaints except as documented Physical Exam General General appearance: alert and in distress Head Head exam: atraumatic and normocephalic Eye Eye exam: Present normal appearance, PERRL and EOMI ENT ENT exam: Present normal oropharynx and normal external ear exam Neck Neck exam: Present normal inspection and full ROM Chest Chest inspection: Present normal inspection and symmetric chest wall rise Respiratory Respiratory exam: Present normal lung sounds bilaterally; Absent respiratory distress Cardiovascular Cardiovascular exam: Present regular rate and normal rhythm Abdominal Exam Abdominal exam: Present soft and tenderness (Wraps around from the back towards the umbilicus and the T9 dermatome. No rash overlying); Absent distention or guarding Extremities Exam Extremities exam: Present normal inspection; Absent edema or joint swelling Back Exam Back exam: Present normal inspection; Absent tenderness Neurological Exam Neurological exam: Present alert, oriented X3, CN II-XII intact, reflexes normal and other (No cerebellar deficits); Absent motor sensory deficit Psychiatric Psychiatric exam: Present anxious Skin Skin exam: Present warm, dry and normal color Lymphatic Lymphatic Findings: no adenopathy Medical Decision Making Medical Records Medical records reviewed: Yes I reviewed the patient's medical records. Tim Inquiry Pt receiving controlled substance: No Tim was queried for this patient: No Vital Signs: 05/04/24 23:12 Temperature 98.4 F Temperature Source Oral Pulse Rate [Right Radial] 91 H Respiratory Rate 20 Blood Pressure [Right Arm] 154/98 H Blood Pressure Mean [Right Arm] 116 Blood Pressure Source [Right Arm] Automatic Cuff Blood Pressure Position [Right Arm] Sitting 02 Sat by Pulse Oximetry 98 Oxygen Delivery Method Room Air Lab Data Lab results reviewed: Yes I reviewed the patient's lab results. Orders (Tests/Meds): ED MEDICATIONS Generic Name Dose Route Start Last Admin Trade Name Freq PRN Reason Stop Dose Admin Acyclovir Sodium 700 mg/ 250 mls @ 250 mls/hr 05/04/24 23:45 Sodium Chloride IV 05/11/24 23:44 Q8H DINAH Ketamine HCl 25 mg 05/05/24 00:05 05/05/24 00:07 Ketamine 50mg/1ml Syringe IV 05/05/24 00:06 25 mg ONCE ONE Administration Discontinued Medications Generic Name Dose Route Start Last Admin Trade Name Freq PRN Reason Stop Dose Admin Acetaminophen 1,000 mg 05/04/24 23:45 05/05/24 00:00 Acetaminophen 500mg Tab PO 05/04/24 23:46 1,000 mg ONCE ONE Administration Hydromorphone HCl 1 mg 05/04/24 23:45 05/05/24 00:02 Hydromorphone 2mg/Ml Syringe IV 05/04/24 23:46 1 mg ONCE ONE Administration Ketamine HCl 25 mg 05/04/24 23:45 05/05/24 00:06 Ketamine 500mg/10ml Vial IV 05/04/24 23:46 Not Given ONCE ONE Ketorolac Tromethamine 30 mg 05/04/24 23:45 05/05/24 00:01 Ketorolac 30mg/Ml Vial IV 05/04/24 23:46 30 mg ONCE ONE Administration Lidocaine 1 each 05/04/24 23:56 05/05/24 00:00 Lidocaine 5% Transdermal Patch TP 05/04/24 23:57 1 each ONCE ONE Administration Medical Decision Narrative: 48-year-old female presents for worsening right-sided pain. I saw her last night and diagnosed her with zoster sine herpete. Her symptoms began 1 week ago today. She has hyperesthesia and severe pain in the T8/T9 dermatome. Wraps from the back around towards the umbilicus. She does not have a rash. She has been on acyclovir, prednisone and gabapentin since shortly after the onset of symptoms. I gave her numerous medications last night in the ER to try to alleviate her pain with some success. She was unable to tolerate the pain at home with gabapentin and opiates. See prior note for full details of history and workup, but last night patient had CT of abdomen/pelvis and full labs that were unremarkable with exception of mild lymphocytosis. I sent off a zoster IgG which returned positive at 944. This may be a marker of strong immunity or reactivation. Patient reports headache that is chronic and unchanged for her. She reports that when she closes her eyes, she feels like she sees more light than normal. Other than that, she denies any vision changes, hearing changes, confusion, weakness, numbness or other neurologic symptoms to suggest central involvement. Physical exam shows no neurologic deficits. Differential includes but is not limited to zoster sine herpete, liver pathology, visceral zoster, ENV[employer]MENT[employer]OTE[employer]IST zoster. Workup last night and exam today show no evidence of disseminated infection. Patient has no history of immunocompromise that would put her at risk for disseminated infection. All of her symptoms remain localized to the 1 dermatomal area. Given she was not able to control pain at home and her symptoms are worsening despite oral acyclovir, I believe admission for pain control and IV acyclovir is reasonable. I considered performing repeat labs and LP, but given she has no signs or symptoms of central infection and her labs were normal less than 24 hours ago, I did not feel that the risk-benefit supported performing an LP at this time. Patient was given IV Dilaudid, IV Toradol, p.o. Tylenol, pain dose ketamine and topical lidocaine in the ER for pain control. She was initiated on IV acyclovir and admitted to the hospitalist for further management. Procedures Risk/Benefits of Procedure(s) Were Explained: Yes Critical Care Critical Care Time Critical Care Time: No
[2024-05-05] MEDS: LIDOCAINE 5% TRANSDERMAL PATCH 1 EACH TP
[2024-05-05] MEDS: ACETAMINOPHEN 500MG TAB 1000 MG PO
[2024-05-05] MEDS: KETOROLAC 30MG/ML VIAL 30 MG IV ×3 (00:01→20:37)
[2024-05-05] MEDS: HYDROMORPHONE 2MG/ML SYRINGE 1 MG IV ×3 (00:02→06:16)
[2024-05-05] MEDS: KETAMINE 50MG/1ML SYRINGE 25 MG IV (00:07)
--- NOTE | 2024-05-05 00:07 | PC.NURSE ---
Dr. Timmons placed order for pain dose ketamine, however the order was under the concentration for 500mg/10ml vial. I asked Dr. Timmons if we could adjust to order to allow the 100mg/1ml syringe, he stated that is ok. Dose, drug, and pt verified with Dr. Timmons and order placed in DEC. Wasted medications on [facility] with Rachel Cazares RN
[2024-05-05] MEDS: ACYCLOVIR SODIUM 700 MG in 0.9 % SODIUM CHLORIDE 250 ML 250 MG IV ×2 (00:30→08:25)
--- NOTE | 2024-05-05 00:35 | PC.NURSE ---
Gave report to Hesham EMERY on Med Surg
[2024-05-05 00:42] VITALS: BP 156/81; PULSE 86; RESP 16; TEMP 36.8
--- NOTE | 2024-05-05 00:45 | PC.NURSE ---
Patient arrived to floor via wheelchair from ED at 00:44.
--- NOTE | 2024-05-05 00:47 | EXP.HP ---
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 About a week ago she began to have discomfort in her right flank starting in her back that then started to run around to the front.. She denies ever having a rash but the pain has increased to where it is on tolerable. She was seen in the emergency room approximately 24 hours ago for this treated and sent home. She talked with her provider they could do nothing for her and said she just needed to come back to the ER. ER physician was consulted on this and he felt that this probably could be an eruption of shingles with no outward lesions. The lady's pain is significant she has been given opioid pain medicines and ketamine with some relief. Due to the uncontrolled pain do agree with the emergency room physician will admit for pain control [facility] Disclaimer: The information contained in this section may have been updated after the patient was seen, as this information can be updated by other users. Medical History 2nd degree AV block History of stroke Takotsubo cardiomyopathy Brain aneurysm H/O chronic meningitis Abnormal uterine bleeding Pelvic pain Asthma Endometriosis Migraine Anxiety Irritable bowel syndrome (IBS) History of heart attack History of anemia Menorrhagia Angina pectoris syndrome Headache Depression HLD (hyperlipidemia) HTN (hypertension) History of meningitis Brain aneurysm Dizziness Dyspnea Myocardial infarct Sacroiliitis Surgical History S/P laparoscopic hysterectomy History of endometrial ablation History of cholecystectomy H/O tubal ligation Hx of cholecystectomy History of arthroscopy of right shoulder H/O cerebral aneurysm repair Family History Mother Ovarian cancer Family history of stroke Grandmother Lung cancer Other Family history of diabetes mellitus type II Family history of myocardial infarction No significant family history Social History Smoking Status: Never smoker alcohol intake: never substance use type: denies use current occupational status: employed Travel in the last 8 weeks: None household members: significant other and children housing: house lives independently: Yes marital status: education level: other current occupational exposures/hazards: No caffeine: Yes do you feel safe at home: Yes victim of physical abuse: No victim of emotional abuse: No victim of sexual abuse: No Review of Systems Review of Systems Review of systems:: other (Patient was in significant pain but did try to cooperate for the exam, emergency room nurse did bring medication in the room stop the exam and let her give the medication. Patient said she never felt like this before felt it was the ketamine but also given Dilaudid and appears to have provided some) and pertinent systems reviewed and negative unless documented below Constitutional Constitutional: Reports body ache(s) Eyes Eyes: Reports system reviewed and no additional complaints, except as documented ENT Ears, Nose, Mouth, and Throat: Reports system reviewed and no additional complaints, except as documented *Cardiovascular Cardiovascular: Reports system reviewed and no additional complaints, except as documented *Respiratory Respiratory: Reports system reviewed and no additional complaints, except as documented *Gastrointestinal Gastrointestinal: Reports system reviewed and no additional complaints, except as documented Comments: Noting the right flank pain does extend around to the front of the abdomen but is only at the skin level and is sensitive to even light touch *Genitourinary Genitourinary: Reports system reviewed and no additional complaints, except as documented *Musculoskeletal Musculoskeletal: Reports system reviewed and no additional complaints, except as documented Integumentary/Breasts Skin/Breast: Reports system reviewed and no additional complaints, except as documented *Neurologic Neurologic: Reports system reviewed and no additional complaints, except as documented Psychiatric Psychiatric: Reports anxiety Comments: History and her behavior appears to be in significant pain, but noted that she tried to be as cooperative is possible Endocrine Endocrine: Reports system reviewed and no additional complaints, except as documented Hematologic/Lymphatic Hematologic/Lymphatic: Reports system reviewed and no additional complaints, except as documented Allergic/Immunologic Allergic/Immunologic: Reports system reviewed and no additional complaints, except as documented Meds Home Medications and Allergies Home Medications ?Medication ?Instructions ?Recorded ?Confirmed ?Type albuterol sulfate 90 mcg/actuation 2 puff inhalation BIDP PRN 01/05/22 05/05/24 History aerosol inhaler (ProAir HFA) Shortness Of Breath aspirin 81 mg tablet,delayed 81 mg PO DAILY #30 tabs 02/01/23 05/05/24 Rx release metoprolol succinate 25 mg 25 mg PO DAILY #30 tabs 02/09/23 05/05/24 Rx tablet,extended release 24 hr atorvastatin 40 mg tablet (Lipitor) 80 mg PO DAILY 06/16/23 05/05/24 History ondansetron 8 mg disintegrating 8 mg PO TIDP PRN Nausea And 06/16/23 05/05/24 History tablet Vomiting tizanidine 2 mg tablet 2 mg PO DAILY 06/16/23 05/05/24 History cyclobenzaprine 10 mg tablet 10 mg PO BID 08/09/23 05/05/24 History hydrocodone 10 mg-acetaminophen 1 tab PO Q6HP PRN Severe Pain 08/09/23 05/05/24 History 325 mg tablet (Scale Score 7-10) lorazepam 1 mg tablet 1 mg PO HS 08/09/23 05/05/24 History promethazine 25 mg tablet 25 mg PO BIDP PRN Nausea 08/09/23 05/05/24 History rimegepant 75 mg disintegrating 75 mg PO NEEDED PRN Migraine 08/09/23 05/05/24 History tablet (Nurtec ODT) Headache amlodipine 5 mg tablet (Norvasc) 5 mg PO DAILY #30 tabs 11/03/23 05/05/24 Rx fezolinetant 45 mg tablet (Veozah) 45 mg PO DAILY 05/05/24 05/05/24 History gabapentin 400 mg capsule 400 mg PO BID 05/05/24 05/05/24 History semaglutide 0.25 mg or 0.5 mg (2 0.25 mg SQ WEEKLY 05/05/24 05/05/24 History mg/3 mL) subcutaneous pen injector (Ozempic) New Prescriptions to Start Prescriptions: Allergies Allergy/AdvReac Type Severity Reaction Status Date / Time fentanyl Allergy Severe Anxiety Verified 03/13/24 10:10 ciprofloxacin [From Cipro] Allergy Mild Verified 03/13/24 10:10 morphine Allergy Verified 03/13/24 10:10 Exam Data for Last 24 hours Vital signs and Labs for Last 24 Hours: Temp Pulse Resp BP Pulse Ox O2 Del Method 98.2 F 86 16 156/81 H 98 Room Air 05/05/24 00:42 05/05/24 00:42 05/05/24 00:42 05/05/24 00:42 05/04/24 23:12 05/05/24 00:42 I & O for Last 24 hours: Intake & Output 05/02/24 05/03/24 05/04/24 05/05/24 23:59 23:59 23:59 23:59 Weight 83.915 kg Radiology Reports for the Last 24 Hours: CT of the abdomen nothing remarkable found, Narrative: Labs do show that she has antibodies to the varicella. Constitutional Constitutional: severe distress and obese Comments: In significant pain to the skin along the right side following a dermatome *Routine HEENT Exam Head: Present normocephalic and atraumatic Eye: Present EOMI, PERRL and normal accommodation ENT: Present mucous membranes moist *Routine Neck Exam Neck: Present supple and full ROM Routine Chest/Breast/Axilla Exam Comments: No sign of injury or pain to chest wall *Routine Respiratory Exam Respiratory: Present normal respiratory effort *Routine Cardiovascular Exam Cardiovascular: Present RRR, Normal S1 and Normal S2 *Routine Abdominal Exam Abdominal: Present soft, normoactive bowel sounds and tenderness Comments: Tenderness is noted in the abdominal wall only, no signs of an acute event, pains appears to be superficial and in the dermis only *Routine Rectal Exam Rectal:: deferred *Routine Genitalia Exam Genitalia:: deferred *Routine Extremities Exam Extremities: Present pulses intact Routine Back/Spine/Pelvis Exam Back/Spine: Present full ROM Back image: 1. 2. Pain to the skin starting in the right side of the back radiating along the dermatome to the front of the abdomen *Routine Skin Exam Skin: Present intact and dry Comments: The skin appears to be normal without any signs of viral lesions. But the area of pain even to very light touch of the dermis starting in the lower right side of the back and radiating around to the front of the abdomen *Routine Neurological Exam Neurological: Present alert, oriented X3, CN II-XII intact, normal tone and normal speech Routine Psychiatric Exam Psychiatric: Present normal thought process Comments: This part of the exam the patient appears to be normal and trying to cooperate the best she can but appears to be in a 10 out of 10 pain scale H&P: Result Impressions Right-sided back flank and abdominal pain, of unknown origin. No history or indication of injury.. Question whether this is shingles without viral lesion presentation. Imaging and Cardiology CT scan - abdomen: Status: image reviewed by me and final report (No acute findings) Assessment and Plan *Assessment and plan (1) Intractable pain: Start date: 04/30/24 Problem Comment: Uncontrolled flank pain Status: Acute Category: Medical Code(s): R52 - Pain, unspecified (2) Zoster sine herpete: Start date: 04/30/24 Problem Comment: Was exposed to a patient in her office setting that had shingles Status: Acute Category: Medical Code(s): B02.8 - Zoster with other complications (3) Anxiety and depression: Problem Comment: On Effexor Status: Chronic Category: Medical Code(s): F41.9 - Anxiety disorder, unspecified; F32.A - Depression, unspecified (4) HTN (hypertension): Status: Chronic Qualifiers: Hypertension type: primary hypertension Qualified Code(s): I10 - Essential (primary) hypertension Category: Medical Code(s): I10 - Essential (primary) hypertension Plan 48-year-old female with significant anxiety, presented with intractable pain on her right side. Follows dermatomal pattern. Inability to control pain in the ER, admitted for further management. Discussed case with ER physician, request admission for pain control. Medicine agreed to admit for further management. Initiating gabapentin. Showing response. Problems addressed as follows: Neuropathy concerning for shingles - Right-sided back pain radiating into the dermis to the abdomen, patient has been given several things for pain which has relieved her from 10 of 10 to about 7 of 10. Will continue to adjust meds to try to bring pain to a tolerable level. -Initiate gabapentin 400 mg 3 times a day -Hydrocodone 10 mg as needed every 6 hours. -Toradol IV 30 mg as needed for pain every 6 hours. Monitor for toxicity on pain combination. -Acyclovir IV, transition oral morning rounds. Plan to complete 7 days of therapy -No lesions however symptoms clinic lacing to get with distribution in a dermatomal pattern for varicella-zoster. -Continue lidocaine patch topically as needed daily -Morning labs showed normal white count at 8.5, kidney function normal BUN 14, creatinine 0.7. Electrolytes acceptable with magnesium 1.9, potassium 3.5. -Repeat CBC, CMP, magnesium ordered for the morning. Anxiety/ depression: Responded well to Ativan. Will discontinue however due to high risk for adverse effects with opiates above. Will initiate Paxil 10 mg daily. Full code Regular diet Rounded on patient after nurse practitioner. Personally examined and interviewed patient. Agree with exam findings and care plan as documented.
[2024-05-05] MEDS: HYDROCODONE/APAP 5/325 MG TABLET 2 TAB PO ×5 (00:59→21:55)
[2024-05-05 01:02] VITALS: BP 156/81; PULSE 75; RESP 18; O2SAT 98
[2024-05-05] MEDS: LORazepam 1MG TABLET 2 MG PO (01:36)
[2024-05-05] MEDS: CYCLOBENZAPRINE 10MG TABLET 10 MG PO ×3 (01:42→20:36)
[2024-05-05 04:00] VITALS: BP 131/81; PULSE 75; RESP 18; TEMP 36.4; O2SAT 91; BMI 29.7
--- NOTE | 2024-05-05 06:45 | PC.NURSE ---
Pt is A&OX4 and has tolerated room air. Lung sounds clear throughout and bowel sounds in all quadrants. She has complained of back pain that radiated to the front and was treated per Mar. Pt verbalized relief of pain after treatment. Family member has remained at beside throughout shift. Pt has no complaints at this time, call light within reach.
[2024-05-05 07:00] LABS: Albumin Level 3.5 g/dl (3.5-5.0); Chloride 107 mmol/L (98-107); Potassium 3.5 mmoL/L (3.5-5.1); Sodium 139 mmol/L (136-145)
[2024-05-05 07:02] LABS: Blood Urea Nitrogen 14 mg/dl (7-17)
[2024-05-05 07:03] LABS: Alanine Aminotransferase 37 U/L (12-78); Albumin/Globulin Ratio 1.4 (1.1-1.8); Alkaline Phosphatase 87 U/L (38-126); Anion Gap 7.5 mEq/L (5-15); Aspartate Amino Transferase 45 U/L (14-36); Bilirubin,Total 0.3 mg/dl (0.2-1.3); Calcium 8.3 mg/dl (8.4-10.2); Carbon Dioxide 28 mmol/L (22.0-30.0); Creatinine Clearance Estimated 133 mL/min (50-200); Estimated Glomerular Filt Rate 90 ml/min (>60); GFR (African American) 109 ML/MIN (>60); Globulin 2.5 g/dL (1.3-3.2); Glucose 106 mg/dl (74-100); Magnesium 1.9 mg/dl (1.6-2.3)
[2024-05-05 07:44] LABS: Basophils # 0.1 K/mm3 (0-0.2); Basophils % 1.1 % (0.1-2.0); Eosinophils # 0.3 K/mm3 (0.0-0.4); Eosinophils % 3.4 % (0.1-12.0); Hematocrit 35.9 % (37.0-47.0); Hemoglobin 12.2 g/dL (12.2-16.2); Lymphocytes # 4.3 K/mm3 (0.7-4.5); Lymphocytes % 50.9 % (10-50); Mean Corpuscular HGB Conc 33.9 g/dL (31.8-35.4); Mean Corpuscular Volume 85.6 fl (81-99); Mean Platelet Volume 7.8 fl (7.4-10.4); Monocytes # 0.6 K/mm3 (0.1-1.0); Monocytes % 6.8 % (1.7-9.3); Neutrophils # 3.2 K/mm3 (1.8-7.8); Neutrophils % 37.8 % (37.0-80.0); Platelet Count 332 K/mm3 (142-424); Red Blood Count 4.19 M/mm3 (4.20-5.40); Red Cell Distribution Width 14.6 % (11.5-17.5); White Blood Count 8.5 K/mm3 (4.8-10.8)
[2024-05-05 07:55] LABS: MANUAL DIFFERENTIAL MANUAL DIFFERENTIAL (MANUAL DIFF)
[2024-05-05 08:24] VITALS: BP 158/82; PULSE 63; RESP 18; TEMP 36.6; O2SAT 94
[2024-05-05] MEDS: AMLODIPINE 5MG TABLET 5 MG PO (08:25)
[2024-05-05] MEDS: PANTOPRAZOLE 40MG TABLET 40 MG PO (08:25)
[2024-05-05] MEDS: ASPIRIN EC 81MG TABLET 81 MG PO (08:25)
[2024-05-05] MEDS: TIZANIDINE 4MG TABLET 2 MG PO (08:26)
[2024-05-05] MEDS: METOPROLOL SUCCINATE XL 25MG TABLET 25 MG PO (08:26)
--- NOTE | 2024-05-05 08:57 | HMH.PHAINT1 ---
Pharmacy Intervention Comments: MEDICATION RECONCILIATION COMPLETED ON PATIENT USING EXTERNAL FILL HISTORY FROM PHARMACY, GISEL REPORT, AND PATIENT INTERVIEW. -BERRY VIZCAINOD
[2024-05-05 09:32] LABS: Eosinophils % 2 % (0-3); Lymphocytes % 65 % (10-50); Monocytes % 2 % (2-9); Neutrophils % 31 % (42-76); RBC Morphology Normal; Total Cells Counted 100
[2024-05-05 09:33] LABS: Platelet Estimate Normal
[2024-05-05] MEDS: GABAPENTIN 400MG CAPSULE 400 MG PO ×3 (11:04→20:36)
[2024-05-05] MEDS: ACYCLOVIR 400MG TAB 800 MG PO ×3 (13:26→20:36)
[2024-05-05 16:00] VITALS: BP 131/74; PULSE 72; RESP 16; TEMP 36.7; O2SAT 95
--- NOTE | 2024-05-05 17:59 | PC.NURSE ---
Patient complaining of pain that starts on right side of back and radiates to front right side of abdomen, no lesions visible. Medicated with pain medication per mar, Patient sleeping off and on for most of the day. VS stable and patient remained on room air.
[2024-05-05] MEDS: ATORVASTATIN 40MG TABLET 80 MG PO (20:36)
[2024-05-05 21:15] VITALS: BP 111/64; PULSE 76; RESP 16; TEMP 36.6; O2SAT 96
[2024-05-05] MEDS: LORazepam 1MG TABLET 1 MG PO (23:13)
[2024-05-06 04:00] VITALS: BMI 29.5
[2024-05-06] MEDS: ACYCLOVIR 400MG TAB 800 MG PO ×2 (04:40→08:47)
--- NOTE | 2024-05-06 04:43 | PC.NURSE ---
Alert and oriented. Patient in a lot of pain in right side at beginning of shift, unrelieved by PRN pain meds given, ativan one time dose given per orders and helped patient relax. Patient has rested well since and slept through end of night. Ambulates in the restroom standby assist. Pt has had no other complaints. Call light in reach.
[2024-05-06 05:44] VITALS: BP 123/68; PULSE 69; RESP 16; TEMP 36.6; O2SAT 95
[2024-05-06 07:26] LABS: Basophils # 0.1 K/mm3 (0-0.2); Basophils % 0.8 % (0.1-2.0); Eosinophils # 0.5 K/mm3 (0.0-0.4); Eosinophils % 8.2 % (0.1-12.0); Hematocrit 38.4 % (37.0-47.0); Hemoglobin 12.3 g/dL (12.2-16.2); Lymphocytes # 2.8 K/mm3 (0.7-4.5); Lymphocytes % 49.5 % (10-50); Mean Corpuscular HGB Conc 32.1 g/dL (31.8-35.4); Mean Corpuscular Hemoglobin 28.3 pg (27.0-31.2); Mean Corpuscular Volume 88.4 fl (81-99); Mean Platelet Volume 7.4 fl (7.4-10.4); Monocytes # 0.3 K/mm3 (0.1-1.0); Monocytes % 4.8 % (1.7-9.3); Neutrophils # 2.1 K/mm3 (1.8-7.8); Neutrophils % 36.6 % (37.0-80.0); Platelet Count 300 K/mm3 (142-424); Red Blood Count 4.34 M/mm3 (4.20-5.40); Red Cell Distribution Width 14.3 % (11.5-17.5); White Blood Count 5.7 K/mm3 (4.8-10.8)
[2024-05-06 07:28] LABS: Albumin Level 3.3 g/dl (3.5-5.0); Chloride 105 mmol/L (98-107)
[2024-05-06 07:31] LABS: Alanine Aminotransferase 33 U/L (12-78); Albumin/Globulin Ratio 1.3 (1.1-1.8); Blood Urea Nitrogen 10 mg/dl (7-17); Creatinine Clearance Estimated 103 mL/min (50-200); Estimated Glomerular Filt Rate 67 ml/min (>60); GFR (African American) 82 ML/MIN (>60); Globulin 2.5 g/dL (1.3-3.2); Total Protein,Serum 5.8 g/dl (6.3-8.2)
[2024-05-06 07:32] LABS: Calcium 8.3 mg/dl (8.4-10.2); Magnesium 1.9 mg/dl (1.6-2.3)
[2024-05-06 07:47] LABS: Potassium 3.4 mmoL/L (3.5-5.1); Sodium 139 mmol/L (136-145)
[2024-05-06 07:50] LABS: Alkaline Phosphatase 79 U/L (38-126); Anion Gap 8.4 mEq/L (5-15); Aspartate Amino Transferase 36 U/L (14-36); Bilirubin,Total 0.3 mg/dl (0.2-1.3); Carbon Dioxide 29 mmol/L (22.0-30.0); Glucose 136 mg/dl (74-100)
[2024-05-06 08:00] VITALS: BP 132/79; PULSE 70; RESP 18; TEMP 36.6; O2SAT 96
--- NOTE | 2024-05-06 08:18 | P.DS_ITS ---
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 About a week ago she began to have discomfort in her right flank starting in her back that then started to run around to the front.. She denies ever having a rash but the pain has increased to where it is on tolerable. She was seen in the emergency room approximately 24 hours ago for this treated and sent home. She talked with her provider they could do nothing for her and said she just needed to come back to the ER. ER physician was consulted on this and he felt that this probably could be an eruption of shingles with no outward lesions. The lady's pain is significant she has been given opioid pain medicines and ketamine with some relief. Due to the uncontrolled pain do agree with the emergency room physician will admit for pain control Hospital Course Hospital Course Hospital Course: 48-year-old female with significant anxiety, presented with intractable pain on her right side. Follows dermatomal pattern. Inability to control pain in the ER, admitted for further management. Discussed case with ER physician, request admission for pain control. Medicine agreed to admit for further management. I nitiated pain regimen with gabapentin and hydrocodone. Showing improvement during admission. Stable to discharge home with further management as an outpatient. Recommend follow-up with PCP and pain management if symptoms do not improve. Problems addressed as follows: Neuropathy concerning for shingles - Right-sided back pain radiating into the dermis to the abdomen, patient has been given several things for pain which has relieved her from 10 of 10 to about 7 of 10. Initiated gabapentin 4 mg 3 times a day and hydrocodone 10. Achieved good pain control. Has an anxiety component as she became histrionic at night both nights of admission. Treated with a dose of Ativan. Continue home regimen. Seeing improvement with gabapentin for nerve pain. Also initiated on acyclovir given concern for shingles with no rash. Will complete 7 days of antiviral therapy empirically. Scheduled follow-up with pain management in the next 2 weeks, if symptoms not improving, may necessitate nerve block or further interventions. Differential includes shingles, radiculopathy with pinched thoracic nerve, or psychosomatic condition. Patient's pain does appear real on exam. Overall doing well, tolerating p.o. intake, ambulating independently. -Medically stable for discharge Anxiety/ depression: Responded well to Ativan. Continue per home regimen. Initiated on Paxil 10 mg daily for mood. Recommend follow-up with PCP and further adjustment in the outpatient setting. Exam Data for Last 24 hours Vital signs and Labs for Last 24 Hours: Temp Pulse Resp BP Pulse Ox O2 Del Method 97.8 F 69 16 123/68 95 Room Air 05/06/24 05:44 05/06/24 05:44 05/06/24 05:44 05/06/24 05:44 05/06/24 05:44 05/06/24 06:45 Laboratory Results - last 24 hr 05/05/24 05:56: Total Counted 100, Neutrophils % (Manual) 31 L, Lymphocytes % (Manual) 65 H, Monocytes % (Manual) 2, Eosinophils % (Manual) 2, Platelet Estimate Normal, RBC Morphology Normal 05/06/24 06:15: WBC 5.7 D, RBC 4.34, Hgb 12.3, Hct 38.4, MCV 88.4, MCH 28.3, MCHC 32.1, RDW 14.3, Plt Count 300, MPV 7.4, Neut % (Auto) 36.6 L, Lymph % (Auto) 49.5, [place] % (Auto) 4.8, Eos % (Auto) 8.2, Baso % (Auto) 0.8, Neut # (Auto) 2.1, Lymph # (Auto) 2.8, [place] # (Auto) 0.3, Eos # (Auto) 0.5 H, Baso # (Auto) 0.1, Sodium 139, Potassium 3.4 L, Chloride 105, Carbon Dioxide 29, Anion Gap 8.4, BUN 10 D, Creatinine 0.90 D, Estimated Creat Clear 103, Estimated GFR 67, Est GFR ( Amer) 82 D, Glucose 136 H, Calcium 8.3 L, Magnesium 1.9, Total Bilirubin 0.3, AST 36, ALT 33, Alkaline Phosphatase 79, Total Protein 5.8 L, Albumin 3.3 L, Globulin 2.5, Albumin/Globulin Ratio 1.3 I & O for Last 24 hours: Intake & Output 05/03/24 05/04/24 05/05/24 05/06/24 23:59 23:59 23:59 23:59 Intake Total 1440 / 2040 600 / 600 Output Total 0 / 0 0 / 0 Balance 1440 / 0 600 / 600 Weight 83.915 kg 83.915 kg 83.5 kg Constitutional Constitutional: no acute distress and cooperative *Routine HEENT Exam Head: Present normocephalic Eye: Present EOMI and PERRL ENT: Present mucous membranes moist *Routine Neck Exam Neck: Present supple; Absent lymphadenopathy *Routine Respiratory Exam Respiratory: Present CTA bilaterally *Routine Cardiovascular Exam Cardiovascular: Present RRR *Routine Abdominal Exam Abdominal: Present soft, normoactive bowel sounds and tenderness (Tender with light touch along right side of abdomen in dermatomal distribution. No distention.) *Routine Extremities Exam Extremities: Absent cyanosis, clubbing or edema *Routine Skin Exam Skin: Present intact and warm; Absent rash Comments: Exquisitely tender in dermatomal distribution right lower abdomen T10-L1 *Routine Neurological Exam Neurological: Present alert, oriented X3 and moving all extremities; Absent altered mental status Results Data Completed and Pending Labs on day of discharge: Labs from last 24 hours 05/06/24 05/05/24 06:15 05:56 WBC 5.7 D RBC 4.34 Hgb 12.3 Hct 38.4 MCV 88.4 MCH 28.3 MCHC 32.1 RDW 14.3 Plt Count 300 MPV 7.4 Neut % (Auto) 36.6 L Lymph % (Auto) 49.5 [place] % (Auto) 4.8 Eos % (Auto) 8.2 Baso % (Auto) 0.8 Neut # (Auto) 2.1 Lymph # (Auto) 2.8 [place] # (Auto) 0.3 Eos # (Auto) 0.5 H Baso # (Auto) 0.1 Total Counted 100 Neutrophils % (Manual) 31 L Lymphocytes % (Manual) 65 H Monocytes % (Manual) 2 Eosinophils % (Manual) 2 Platelet Estimate Normal RBC Morphology Normal Sodium 139 Potassium 3.4 L Chloride 105 Carbon Dioxide 29 Anion Gap 8.4 BUN 10 D Creatinine 0.90 D Estimated Creat Clear 103 Estimated GFR 67 Est GFR ( Amer) 82 D Glucose 136 H Calcium 8.3 L Magnesium 1.9 Total Bilirubin 0.3 AST 36 ALT 33 Alkaline Phosphatase 79 Total Protein 5.8 L Albumin 3.3 L Globulin 2.5 Albumin/Globulin Ratio 1.3 DS: Diagnosis Discharge Diagnosis (1) Intractable pain: Status: Acute Code(s): R52 - Pain, unspecified Problem details: Uncontrolled flank pain (2) Zoster sine herpete: Status: Acute Code(s): B02.8 - Zoster with other complications Problem details: Was exposed to a patient in her office setting that had shingles (3) Anxiety and depression: Status: Chronic Code(s): F41.9 - Anxiety disorder, unspecified; F32.A - Depression, unspecified Problem details: On Effexor (4) HTN (hypertension): Status: Chronic Code(s): I10 - Essential (primary) hypertension Qualifiers: Hypertension type: primary hypertension Qualified Code(s): I10 - Essential (primary) hypertension Meds Home Medications and Allergies Home Medications ?Medication ?Instructions ?Recorded ?Confirmed ?Type albuterol sulfate 90 mcg/actuation 2 puff inhalation BIDP PRN 01/05/22 05/05/24 History aerosol inhaler (ProAir HFA) Shortness Of Breath aspirin 81 mg tablet,delayed 81 mg PO DAILY #30 tabs 02/01/23 05/05/24 Rx release metoprolol succinate 25 mg 25 mg PO DAILY #30 tabs 02/09/23 05/05/24 Rx tablet,extended release 24 hr atorvastatin 40 mg tablet (Lipitor) 80 mg PO DAILY 06/16/23 05/05/24 History ondansetron 8 mg disintegrating 8 mg PO TIDP PRN Nausea And 06/16/23 05/05/24 History tablet Vomiting tizanidine 2 mg tablet 2 mg PO DAILY 06/16/23 05/05/24 History cyclobenzaprine 10 mg tablet 10 mg PO BID 08/09/23 05/05/24 History lorazepam 1 mg tablet 1 mg PO HS 08/09/23 05/05/24 History promethazine 25 mg tablet 25 mg PO BIDP PRN Nausea 08/09/23 05/05/24 History rimegepant 75 mg disintegrating 75 mg PO NEEDED PRN Migraine 08/09/23 05/05/24 History tablet (Nurtec ODT) Headache amlodipine 5 mg tablet (Norvasc) 5 mg PO DAILY #30 tabs 11/03/23 05/05/24 Rx fezolinetant 45 mg tablet (Veozah) 45 mg PO DAILY 05/05/24 05/05/24 History semaglutide 0.25 mg or 0.5 mg (2 0.25 mg SQ WEEKLY 05/05/24 05/05/24 History mg/3 mL) subcutaneous pen injector (Ozempic) acyclovir 400 mg tablet 800 mg (2 x 400 mg) PO 5XDAY 5 05/06/24 Rx days #50 tabs atogepant 60 mg tablet 60 mg PO DAILY #0 tabs 05/06/24 Rx gabapentin 400 mg capsule 400 mg PO TID 15 days #45 caps 05/06/24 Rx paroxetine HCl 10 mg tablet 10 mg PO DAILY 30 days #30 tabs 05/06/24 Rx New Prescriptions to Start Prescriptions: acyclovir Greyson Hernández gabapentin Greyson Hernández paroxetine HCl Greyson Hernández Allergies Allergy/AdvReac Type Severity Reaction Status Date / Time fentanyl Allergy Severe Anxiety Verified 03/13/24 10:10 ciprofloxacin [From Cipro] Allergy Mild Verified 03/13/24 10:10 morphine Allergy Verified 03/13/24 10:10 Discharge Plan Disposition Patient Disposition: Home, Self-Care Condition: Fair Follow up Plan Follow up with: Izabela Otero APRN [Nurse Practitioner] - 05/24/24 10:00 am Cinda Ring APRN [Primary Care Provider] - 05/12/24 8:30 am Prescriptions/Medication Reconciliation: New paroxetine HCl 10 mg Tablet 10 mg PO DAILY 30 Days Qty: 30 0RF gabapentin 400 mg Capsule 400 mg PO TID 15 Days Qty: 45 0RF acyclovir 400 mg Tablet 800 mg PO 5XDAY 5 Days Qty: 50 0RF atogepant 60 mg Tablet 60 mg PO DAILY Qty: 0 0RF Continued albuterol sulfate [ProAir HFA] 90 mcg/actuation HFA aerosol inhaler 2 puff INHALATION BIDP PRN (Reason: Shortness Of Breath) metoprolol succinate 25 mg tablet extended release 24 hr 25 mg PO DAILY Qty: 30 5RF ondansetron 8 mg tablet,disintegrating 8 mg PO TIDP PRN (Reason: Nausea And Vomiting) atorvastatin [Lipitor] 40 mg tablet 80 mg PO DAILY tizanidine 2 mg tablet 2 mg PO DAILY lorazepam 1 mg tablet 1 mg PO HS promethazine 25 mg tablet 25 mg PO BIDP PRN (Reason: Nausea) cyclobenzaprine 10 mg tablet 10 mg PO BID amlodipine [Norvasc] 5 mg tablet 5 mg PO DAILY Qty: 30 5RF Nurtec ODT 75 mg tablet,disintegrating 75 mg PO NEEDED PRN (Reason: Migraine Headache) aspirin 81 mg Tablet,Delayed Release (Dr/Ec) 81 mg PO DAILY Qty: 30 0RF Ozempic 0.25 mg or 0.5 mg (2 mg/3 mL) Pen Injector 0.25 mg SQ WEEKLY Veozah 45 mg tablet 45 mg PO DAILY Discontinued hydrocodone-acetaminophen 10-325 mg tablet 1 tab PO Q6HP PRN (Reason: Severe Pain (Scale Score 7-10)) gabapentin 400 mg capsule 400 mg PO BID Problem Reconciliation Problems Reviewed?: Yes Patient Discharge Instructions ACTIVITY: Continue current activity DIET: continue same diet Patient Instructions: DI for Shingles Print Language: Azeri Providers Primary Care Provider: Cinda Ring Admit Provider: Greyson Hernández Attending Provider: Greyson Hernández
[2024-05-06] MEDS: METOPROLOL SUCCINATE XL 25MG TABLET 25 MG PO (08:46)
[2024-05-06] MEDS: ASPIRIN EC 81MG TABLET 81 MG PO (08:46)
[2024-05-06] MEDS: GABAPENTIN 400MG CAPSULE 400 MG PO (08:46)
[2024-05-06] MEDS: AMLODIPINE 5MG TABLET 5 MG PO (08:46)
[2024-05-06] MEDS: PANTOPRAZOLE 40MG TABLET 40 MG PO (08:47)
[2024-05-06] MEDS: CYCLOBENZAPRINE 10MG TABLET 10 MG PO (08:47)
[2024-05-06] MEDS: TIZANIDINE 4MG TABLET 2 MG PO (08:47)
--- NOTE | 2024-05-09 16:04 | CARE MANAGER ---
Called and spoke with patient regarding recent discharge. She stated that she is doing much better and has returned to work. She plans to cancel her f/u appt with Branden and did not picker medications prescribed at discharge r/t already having those at home and does not plan to start paxil.
== END 2024-05-06 11:34 | disposition home or self-care (01) ==
LOC: ER 23:25 → 2ND 05-05 00:12
PROVIDERS: Nurse Practitioner Family; Admitting Provider Internal Medicine Adolescent Medicine; Emergency Provider Emergency Medicine; PCP Nurse Practitioner; Visit Provider Internal Medicine Adolescent Medicine
DX: B02.8 Zoster with other complications (principal); Z79.899 Other long term (current) drug therapy; I10 Essential (primary) hypertension; F41.9 Anxiety disorder, unspecified; F32.A Depression, unspecified; B02.29 Other postherpetic nervous system involvement
CPT/HCPCS: 36415; 80053; 83735; 85007; 85025; 85027; 99285; G0378; J1170; J1885

== ENCOUNTER 2025-04-09 18:11 | Emergency (ER) | payer BC, OTHER, SELFPAY ==
[2025-04-09] VITALS (19 sets, daily range): BP systolic 115–148; BP diastolic 60–106; PULSE 68–90; RESP 16–20; TEMP 36.8; O2SAT 93–100; BMI 30.7
--- OUTSIDE RECORDS SUMMARY | 2025-04-09 18:58 | XMS_ITS | Encounter Summary ---
Author Organization [employer] ([place], [place], [place], [place]) Address [address] [place] [address] Care Team Providers Care Sales Receptionist Name Role Phone Pankaj De MD Primary Care Provider [phone] Judith Barnes MD Primary Care Provider [phone] Encounter Details Date Type Department Care Team (Late st Contact Info) Description 10/24/2018 Transcribed Document [facility] – [place] Family Medicine [address] [place] [address] ProviderGurjit MD [address] [place], [place] [id number] Social History Tobacco Use Types Packs/Day Years Used Date Smoking Tobacco: Never Assessed Comments Unknown Sex and Gender Information Value Date Recorded Sex Assigned at Not on file Legal Sex Female 5:23 PM CDT Gender Identity Not on file Sexual Orientation Not on file documented as of this encounter Miscellaneous Notes * Cerner Conversion Note - Historical ProviderMD - 10/24/2018 11:31 AM SALES REPRESENTATIVE EDUCATION COURSES DATE OF PROCEDURE: 10/24/2018 PROCEDURE: Lumbar epidural steroid injection. LEVEL: L4-5. SEDATION: We did not give any sedation. DIAGNOSIS: Lumbosacral radiculopathy. PROCEDURE SUMMARY: After explaining the risks and benefits of the procedure, an informed consent was obtained. The patient was transferred to the procedure room and placed on the table in the prone position. Noninvasive monitors were applied by the procedural room nurse and monitored per standard protocol. Prior to beginning procedure, a time out was performed. The lumbar area was then prepped and draped in sterile fashion. The skin and tissues overlying the specific target levels were anesthetized with 1% Lidocaine mixed with Bicarbonate, using a 25-gauge needle. An 18 gauge Tuohy needle was advanced by the loss -of -resistance technique under direct fluoroscopic guidance into the posterior epidural space without difficulties. Aspiration was negative for blood and/or CSF. The epidural needle position was confirmed in the lateral view and also with injection of 2 mL of Isovue which showed good cephalad and caudad spread in the epidural space. Intravascular and intrathecal injection was excluded. There was no paresthesia during needle placement. A total of 10 mL of volume was injected containing 80 mg of Triamcinolone and 1 mL of Bupivacaine 0.25%. The remaining volume includes preservative free normal saline. The needle was then withdrawn and a dressing was used to cover the injection site. The patient tolerated the procedure well and without incident. Upon completion of the procedure, the patient was transferred to the recovery area in stable condition. The patient was monitored per protocol and discharged from the clinic neurologically intact and with appropriate discharge instructions. The patient has been instructed to contact my office with any questions or difficulties. Preprocedure pain level, 6/10. Postprocedure pain level, 2/10. 1. We are going to continue with baclofen, take it twice a day. 2. I am going to see the patient after two weeks to re-evaluate her. Norma Nielsen M.D., [facility] Pain Certified Dict: 10/24/2018 11:31:42 Trans: 10/24/2018 13:17:51 CC1: Norma Nielsen M.D., [facility] Pain Certified documented in this encounter Plan of Treatment Upcoming Encounters Date Type Department Care Team (Late st Contact Info) Description 05/02/2025 3:45 PM EDT Office Visit [facility] Primary Care [address] [place] [address] Judith Barnes MD [address] [place] [address] documented as of this encounter Visit Diagnoses Not on filedocumented in this encounter Care Teams Sales Receptionist Relationship Specialty Start Date End Date Pankaj De MD [address] [place] [address] PCP - General Family Medicine 08/29/24 09/11/24 Judith Barnes MD [address] [place] [address] PCP - General Internal Medicine 09/12/24 documented as of this encounter
--- OUTSIDE RECORDS SUMMARY | 2025-04-09 18:58 | XMS_ITS | Encounter Summary ---
Author Organization Healthcare Address [address] [place] [address] Care Team Providers Care Therapist Respiratory Name Role Phone Karlie Hannon APRN Primary Care Provider [phone] Tonya Ring APRN Primary Care Provider [phone] Karlie Hannon APRN Unavailable [phone] Encounter Details Date Type Department Care Team (Late st Contact Info) Description 07/07/2023 Lab Requisition [facility] [address] [place] [address] Dimitry Ferris MD [address] [facility] [address] [place] [address] Encounter for general adult medical examination without abnormal findings Social History Tobacco Use Types Packs/Day Years Used Date Smoking Tobacco: Never Passive Smoke Exposure: Never Smokeless Tobacco: Never CAGE ASSESSMENT Answer Date Recorded Cage unable to access Not on file 07/09/2023 Cage max number of drinks Not on file 2022 Cage Beverages a week Not on file 07/09/2023 Have you ever felt you should CUT down on your d rinking? 0 07/09/2023 Have you been ANNOYED by people criticizing your drinking? 0 07/09/2023 Cage questionnaire guilty Not on file 2022 Have you had a drink first t tony in the morning ([employer]) to steady your nerves or to get rid of a hangover? 0 07/09/2023 Cage Overall score Not on file 07/09/2023 Comments Unknown Sex and Gender Information Value Date Recorded Sex Assigned at Not on file Legal Sex Female 8:54 PM EDT Gender Identity Not on file Sexual Orientation Not on file documented as of this encounter Functional Status * Calculated C-SSRS Risk Score (Lifetime/Recent) Answer Date of Assessment Author No Risk Indicated 07/09/2023 8:00 AM EDT Alayna Basilio RN * Question Answer Date of Assessment Author 1. Wish to be (Past 1 Month) No 07/09/2023 8:00 AM EDT Alayna Loco RN 2. Non-Specific Active Suici pamella Thoughts (Past 1 Month) No 07/09/2023 8:00 AM EDT José Loco RN 6. Suicidal Behavior (Lifetime) No 8:00 AM EDT Alayna Loco RN documented as of this encounter Plan of Treatment Not on file documented as of this encounter Procedures Procedure Name Priority Date/Time Associated Diagnosis Comments YOLANDA AURIS SURVEILLANCE BY PCR Routine 07/07/2023 4:00 PM EDT Encounter for general adult medical examination without abnormal findings documented in this encounter Results * Yolanda auris Surveillance by PCR (07/07/2023 4:00 PM EDT) Yolanda auris PCR Result Not Detected Not Detected 07/09/2023 8:12 AM EDT [facility] Swab (Axilla and Groin) 07/07/2023 4:00 PM EDT 07/07/2023 5:07 PM EDT Narrative [facility] - 07/09/2023 8:12 AM EDT This PCR assay was developed and its performance characteristics determined by [facility] as appropriate for clinical purposes. This assay has not been cleared or approved by the FDA, but is performed in a CLIA regulated laboratory that is qualified to perform high-complexity testing. Dimitry Ferris MD LAB MICROBIOLOGY - GEN ERAL ORDERABLES Final Result [facility] [address] [place] [id number] documented in this encounter Visit Diagnoses Diagnosis Encounter for general adult medical examination without abnormal findings documented in this encounter Care Teams Therapist Respiratory Relationship Specialty Start Date End Date Karlie Hannon APRN [address] [place] [id number] PCP - General 06/09/23 07/08/23 Tonya Ring APRN [address] [place] [address] PCP - General 07/09/23 Karlie Hannon APRN [address] [place], [place] [id number] 06/09/23 documented as of this encounter
--- OUTSIDE RECORDS SUMMARY | 2025-04-09 18:58 | XMS_ITS | Encounter Summary ---
Author Organization [employer] ([place], [place], [place], [place]) Address [address] [place] [address] Care Team Providers Care Manufacturing Job Titles Name Role Phone Pankaj De MD Primary Care Provider [phone] Judith Barnes MD Primary Care Provider [phone] Encounter Details Date Type Department Care Team (Late st Contact Info) Description 10/17/2018 Transcribed Document [facility] Family Medicine [address] [place] [address] ProviderGurjit MD [address] [place] [address] Social History Tobacco Use Types Packs/Day Years Used Date Smoking Tobacco: Never Assessed Comments Unknown Sex and Gender Information Value Date Recorded Sex Assigned at Not on file Legal Sex Female 5:23 PM CDT Gender Identity Not on file Sexual Orientation Not on file documented as of this encounter Miscellaneous Notes * Cerner Conversion Note - Historical ProviderMD - 10/17/2018 3:41 PM SHOT PEENING OPERATOR DATE OF ADMISSION: 10/17/2018 HISTORY OF PRESENT ILLNESS: This is a 43-year-old female with a chief complaint of chronic lower back pain that radiates into her left hip. The patient presents today for a re-evaluation. The patient was last seen in this clinic in January 2018. The patient states at that time she was given injections in her lower back. She states they did provide her with excellent relief and she is here to see if she can have those repeated. The patient states that over the last six months she has had constant pain in the left hip and it occasionally does go down her leg. The patient states she is having difficulty lying down and sitting for any extended periods of time. She states she is unable to do housework due to the pain. The patient states that she has not been able to be seen in this clinic since that time because she switched jobs and due to insurance issues she was unable to come. The patient describes her pain as spasm, aching, tender, throbbing. Her current pain level is 7/10. She states the tolerable pain level is 9/10. Her average pain level is a 6/10. She states sitting, bending forward, bending backwards, moving from sitting to standing, lifting, driving, lying, twisting, sexual activity all make her pain worse. She states that pain medication, TENS unit, ibuprofen injections, all make her pain better. She states that she has previously used a TENS unit, heat, cold, physical therapy, massage therapy, traction, pain clinic, all give her moderate relief. As previously mentioned, the patient did have previous lumbar epidural steroid injections with this clinic and stated that she was able to get really good relief. The patient states that she has been taken tizanidine. She states it does make her sleepy, so she has been unable to take that while she has been working. She states that she previously took baclofen and was able to continue to work because it did not make her drowsy. ALLERGIES: 1. MORPHINE. 2. FENTANYL. 3. CIPRO. CURRENT MEDICATIONS: 1. Tizanidine. 2. Ibuprofen. PAST SURGICAL HISTORY: The patient states this is unchanged since her last office visit with this clinic in 01/2018. PAST MEDICAL HISTORY: The patient states this is unchanged since her last office visit in 01/2018. FAMILY HISTORY: The patient states this is unchanged since her last office visit with this clinic in 01/2018. 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 She states she started there about two months ago. She states that she is on her feet for long periods of time due to her job. The patient states she does occasionally drink alcohol maybe once every one to two months. She denies any history or current use of any illegal drugs or substances. The patient states she has completed some college. She is with two children. She states that she does help to take care of her grandchild. She states that she also attributes this to some of her pain as her grandchild is very active. She states she has friends for emotional support. She denies any stressors or situations at home that may interfere with her ability to cope her function normally. REVIEW OF SYSTEMS: CONSTITUTIONAL: Admits weight gain. EYES: Admits decreased vision. EARS, NOSE, AND THROAT: Admits sinus pressure and drainage. NEUROLOGICAL: Admits headaches. HEMATOLOGIC/LYMPHATIC: Denies. FUNCTIONAL STATUS: Can attend basic daily routines without needing assistance. RESPIRATORY: Denies. GASTROINTESTINAL: Admits nausea and vomiting along with diarrhea. MUSCULOSKELETAL: Admits joint pain, muscle aches, joint stiffness. PSYCHIATRIC: Admits depression, sadness, anxiety, sleep disturbance. CARDIOVASCULAR: Denies. GENITOURINARY: Denies. INTEGUMENTARY: Denies. ENDOCRINE: Admits fatigue. PHYSICAL EXAMINATION: VITAL SIGNS: Blood pressure 145/85, pulse 98, temperature 96.8, respiratory rate 16, O2 saturation 97% on room air. Height 5 feet 6 inches. Weight 210 pounds. Visual analog score 6/10. The patient is alert and oriented to person, place, and time. She does have mild behavior and discomfort. The rest of the physical exam to include HEENT, heart, lungs, abdomen were all unremarkable. DIRECTED PHYSICAL EXAM: She does have an antalgic gait. She does have problems with heels and toes, specifically noted on the left side. The patient did have some pain noted with the extension and flexion of her trunk. Palpation of her lumbosacral facet joints revealed tenderness. The patient did have positive facet loading. The patient also had positive straight leg raise on the left side. She also had pain noted with palpation of the left SI joint and hip. NEUROLOGICAL EXAM: Cranial nerves 2 through 12 are unremarkable. She does motor 5/5 bilaterally and symmetrically in the upper and lower extremities. Sensory was grossly decreased specifically on the left L4, L5, and S1. Deep tendon reflexes were positive 2/4 bilaterally and symmetrically in the upper and lower extremities. Straight leg raise was positive on the left, negative on the right. The nurse's notes and GISEL were reviewed and evaluated. We did do a chronic pain psychological evaluation in our clinic with SOAPP-R. The patient showed mild to moderate risk to continue any opioid medication. DIAGNOSTIC STUDIES: The patient states she has had no new imaging since her last office visit with this clinic. ASSESSMENT: 1. 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 2. Her symptoms do correlate with lumbosacral radiculopathy. 3. Left sacroiliac dysfunction. PLAN: 1. Schedule the patient for a lumbar epidural steroid injection at L5-S1. 2. The patient is going to follow up in two weeks after that procedure for re-evaluation. 3. Start baclofen 10 mg twice a day. 4. I have encouraged the patient to continue doing her home exercises to include walking, stretching, and range of motion exercises. 5. The assessment and plan for today's visit was reviewed by Dr. Nielsen. However, I did prescribe all medications for this patient's treatment plan. 6. Thank you for allowing me to participate in the management of this patient. I will keep you informed of her progress. If you have any questions or you need further information, please do not hesitate to contact our clinic. Dictated By: Izabela Pimentel APRN For Norma Nielsen M.D., [facility] Pain Certified I spent time to evaluate and examine the patient, review chart, consultation notes, medication, vital signs, lab, Imaging, discuss in details with nurse practitioner, and I agree with the plan. Norma Nielsen M.D., [facility] Pain Certified Dict: 10/17/2018 15:41:34 Trans: 10/17/2018 21:27:40 CC1: Norma Nielsen M.D., [facility] Pain Certified CC2: Dr. Tonya Burks documented in this encounter Plan of Treatment Upcoming Encounters Date Type Department Care Team (Late st Contact Info) Description 05/02/2025 3:45 PM EDT Office Visit [facility] Primary Care [address] [facility] [address] [place] [address] Judith Barnes MD [address] [facility] [address] [place] [address] documented as of this encounter Visit Diagnoses Not on filedocumented in this encounter Care Teams Manufacturing Job Titles Relationship Specialty Start Date End Date Pankaj De MD [address] [place] [address] PCP - General Family Medicine 08/29/24 09/11/24 Judith Barnes MD [address] [facility] [address] [place] [address] PCP - General Internal Medicine 09/12/24 documented as of this encounter
--- OUTSIDE RECORDS SUMMARY | 2025-04-09 18:58 | XMS_ITS | Encounter Summary ---
Author Organization [employer] ([place], [place], [place], [place]) Address [address] [place] [address] Care Team Providers Care Medical Administrative Technician Name Role Phone Pankaj De MD Primary Care Provider [phone] Judith Barnes MD Primary Care Provider [phone] Encounter Details Date Type Department Care Team (Late st Contact Info) Description 01/18/2020 Transcribed Document [facility] Family Medicine [address] [place] [address] ProviderGurjit MD [address] [place] [address] Social History Tobacco Use Types Packs/Day Years Used Date Smoking Tobacco: Never Assessed Comments Unknown Sex and Gender Information Value Date Recorded Sex Assigned at Not on file Legal Sex Female 5:23 PM CDT Gender Identity Not on file Sexual Orientation Not on file documented as of this encounter Miscellaneous Notes * Cerner Conversion Note - Gurjit ProviderMD - 01/18/2020 10:31 AM CDT DATE OF SERVICE: 01/17/2020 GXT MYOVIEW STRESS TEST INDICATIONS: Chest pain, hypertension, shortness of air. DESCRIPTION OF PROCEDURE: After informed consent, patient walked 7 minutes and 31 seconds on a standard Abhijit protocol, stopping due to fatigue. No chest pain reproduced. Heart rate from 59 to 153, surpassing target heart rate of 151 beats per minute. Blood pressure went from 145/80 to 150/72. Baseline EKG shows sinus bradycardia. Peak exercise EKG shows sinus tachycardia. No ischemic ST-T wave changes or arrhythmia induced. Heart rate recovery time was 2 minutes and workload achieved was 8.4 METs. Nuclear tomographic images shows normal perfusion of left ventricle with no stress-induced perfusion defect nor stress-induced LV cavity dilatation with TID calculated at 0.8. Nuclear ventriculogram revealed normal perfusion LV wall motion. Ejection fraction calculated at 74%. IMPRESSION: Low risk GXT Myoview stress test for ischemia and preserved left ventricular systolic function. Average functional tolerance. /[id number] Tiffanie Blue MD SMLorena/AQ / NEFTALY / MODL /[id number] Electronically signed by Interface, [facility] Conversion Affiliate Marketing Specialist Cerner at 01/21/2023 2:01 PM CDT documented in this encounter Plan of Treatment Upcoming Encounters Date Type Department Care Team (Late st Contact Info) Description 05/02/2025 3:45 PM EDT Office Visit [facility] Primary Care [address] [address] Judith Barnes MD [address] [address] documented as of this encounter Visit Diagnoses Not on filedocumented in this encounter Care Teams Medical Administrative Technician Relationship Specialty Start Date End Date Pankaj De MD [address] [place] [address] PCP - General Family Medicine 08/29/24 09/11/24 Judith Barnes MD [address] [address] PCP - General Internal Medicine 09/12/24 documented as of this encounter
--- OUTSIDE RECORDS SUMMARY | 2025-04-09 18:58 | XMS_ITS | Clinical Summary ---
Author Organization [facility] Address [address] [place] [address] Care Team Providers Care Australian Rules Footballer Name Role Phone Tonya Ring APRN Primary Care Provider [phone] Karlie Hannon SERVICES MANAGER Unavailable [phone] Allergies Active Allergy Reactions Criticality Noted Date Comments Ciprofloxacin Other - please docum ent in the comment field Low 07/07/2023 BLE cramping Fentanyl Hives Medium 07/07/2023 and nervousness Morphine Hives Medium 07/07/2023 and nervousness Medications * This document contains information received from the source organization and may not represent a complete record from that organization. metoprolol succinate XL (Toprol-XL) 25 MG 24 hr tablet Take 1 tablet (25 mg) by mouth 1 (one) time each day. Do not crush or chew. Active atorvastatin (Lipitor) 80 MG tablet Take 1 tablet (80 mg) by mouth 1 (one) time each day. Active LORazepam (Ativan) 1 MG tablet Take 1 tablet (1 mg) by mouth 2 (two) times a day. Active topiramate (Topamax) 25 MG tablet Take 1 tablet (25 mg) by mouth 2 (two) times a day. Active metFORMIN (Glucophage) 500 MG tablet Take 1 tablet (500 mg) by mouth 1 (one) time each day. Active Rimegepant Sulfate (Nurtec) 75 MG tablet dispersible Take 1 tablet (75 mg) by mouth every other day if needed (headache). Active Atogepant (Qulipta) 60 MG tablet Take 60 mg by mouth 1 (one) time each day. Active HYDROcodone-acet aminophen (Sentinel) 10-325 MG tablet Take 1 tablet (10 mg of hydrocodone ) by mouth every 6 (six) hours if needed for severe pain. Active Active Problems Problem Noted Date Diagnosed Date Migraine with aura, intractable, with status justin rainosus 07/07/2023 Right sided weakness Encounters * This document contains information received from the source organization and may not represent a complete record from that organization. Date Type Department Care Team Description 01/17/2025 Travel from Last 3 Months Immunizations Immunization Administration Dates Next Due Hep B, adult 01/09/2014,12/07/2013 Influenza, Injectable, MDCK, trivalent, PF 08/02 Influenza, injectable, quadrivalent 07/11/2019 MMR 01/17/2025,12/05/2024 PPD Skin Test (TB Skin Test) 05/09/2019 Tdap 12/04/2024,12/07/2013 Family History Medical History Relation Name Comments Alcohol abuse Father Arthritis Other 1 Asthma Other 2 Cancer Other 3 Conversions - Other Other 4 Colitis Epilepsy Other 5 Hypertension Other 6 Stroke Other 7 Relation Name Status Comments Father Other 1 Other 2 Other 3 Other 4 Other 5 Other 6 Other 7 Social History Tobacco Use Types Packs/Day Years Used Date Smoking Tobacco: Never Passive Smoke Exposure: Never Smokeless Tobacco: Never Tobacco Cessation:Counseling Given: No Alcohol Use Standard Drinks/Week Comments Yes 0 (1 standard drink = 0.6 oz pur e alcohol) CAGE ASSESSMENT Answer Date Recorded Cage unable [...] drink first t tony in the morning (EYE-LOAN COLLECTOR) to steady your nerves or to get rid of a hangover? 0 07/09/2023 Cage Overall score Not on file 07/09/2023 Comments Unknown Sex and Gender Information Value Date Recorded Sex Assigned at Not on file Legal Sex Female 8:54 PM EDT Gender Identity Not on file Sexual Orientation Not on file Last Filed Vital Signs Vital Sign Reading Time Taken Comments Blood Pressure 115/84 12/05/2024 3:07 PM EST Pulse 93 12/05/2024 2:52 PM EST Temperature 36.7 C (98 F) 07/09/2023 12:00 PM EDT Respiratory Rate 18 07/09/2023 12:00 PM EDT Oxygen Saturation 99% 12/05/2024 2:52 PM EST Inhaled Oxygen Concentration - - Weight 87.7 kg (193 lb 5.5 oz) 07/09/2023 11:02 AM EDT Height 167.6 cm (5' 6 ) 07/09/2023 11:02 AM EDT Body Mass Index 31.21 07/09/2023 11:02 AM EDT Plan of Treatment Health Maintenance Due Date Last Done Comments [facility]-Depression Screening 1977 [facility]-/Child/Adol SDOH Screenings 1977 Diabetes: Dental Exam 1987 [facility]- SDOH Screenings 1995 [facility]-Adult SDOH Screenings 1995 [facility]-Pneumococcal Vaccine: Pediatrics (0 to 5 Years) and At-Risk Patients (6 to 49 Years) (1 of 2 - PCV) 1996 [facility]-Pap Smear 1998 [facility]-Cervical Cancer Screening 2007 [facility]-HPV/Cotest 2007 [facility]-Hepatitis B Vaccines (3 of 3 - 19+ 3-dose series) 06/09/2014 01/09/2014, 12/07/2013 CT Colonography 2022 Colonoscopy 2022 FIT-DNA 2022 FIT 2022 FOBT 2022 Sigmoidoscopy 2022 [facility]-Colorectal Cancer Screening 2022 DPF-[id number]-07 Vaccine ( season) 2024 [facility]-Influenza Vaccine (#1) 2025 08/02/2024, [facility]-Diabetes: Hemoglobin A1C 06/26/2025, 07/07/2023, 12/03/2021 [facility]-Zoster Vaccines (1 of 2) 2027 [facility]-DTaP,Tdap,and Td Vaccines (3 - Td or Tdap) 12/04/2034 12/04/2024, 12/07/2013 [facility]-HIV Screening Completed 07/07/2023 [facility]-Hepatitis C Screening Completed 07/07/2023 [facility]-Obesity Intervention Completed 025, 12/05/2024, 12/05/2024, Additional history exists HPV Vaccines Aged Out No longer eligi ble based on patient's age to complete this topic [facility]-HIB Vaccines Aged Out No longer e ligible based on patient's age to complete this topic [facility]-Hepatitis A Vaccines Aged Out No longer eligible based on patient's age to complete this topic [facility]-IPV Vaccines Aged Out No longer e ligible based on patient's age to complete this topic [facility]-Rotavirus Vaccines Aged Out No lo nger eligible based on patient's age to complete this topic Procedures Procedure Name Priority Date/Time Associated Diagnosis Comments HEMOGLOBIN A1C Routine 12/27/2024 10:44 AM EDT Type 2 diabetes mellitus without complication, unspecified whether long term care administrator insulin use (CMS/HCC) Essential hypertension, malignant Occlusion of left carotid artery Mixed hyperlipidemia HEPATITIS C ANTIBODY - ED W/REFLEX TO HCV QUANT PCR Routine 07/07/2023 1:12 PM EDT ED HIV 1/2 ANTIBODY/ANTIGEN SCREEN WITH REFLEX TO HIV I/II DIFFERENTIATION Routine 07/07/2023 1:12 PM EDT from Last 3 Months or Most Recently Relevant to Health Maintenance Results * (ABNORMAL) Hemoglobin A1c (12/27/2024 10:44 AM EDT) Hemoglobin A1c 6.2(H) <5.7 % 12/27/2024 1:31 PM EDT [facility] Blood Venous blood specimen / Unknown Venipuncture / Unknown 12/27/2024 10:44 AM EDT 12/27/2024 10:44 AM EDT Narrative [facility] - 12/27/2024 1:31 PM EDT HA1C Interpretive Data: Diagnosis of Diabetes: Diabetic > or = 6.5% Pre-diabetic 5.7 to 6.4% Non-diabetic < or = 5.6% Glycemic Targets for Type I and Type II Diabetics: Non- Adults <7.0% Adults <6.0% Children and Adolescents <7.5% Source: [place] [employer]. Standards of medical care in diabetes,2017. Diabetes Care.2017:40 (suppl 1):S1-S135. HbA1c assay performed by an ion-exchange chromatography method that is certified traceable to the DCCT. us Judith Barnes MD LAB BLOOD ORDERABLES Final Res ult [facility] [address] [place] [address] * ED HIV 1/2 Antibody/Antigen Screen w/Reflex to HIV 1/2 Differentiation (07/07/2023 1:12 PM EDT) Pathologist [facility] HIV 1 & 2 Antibody/Antigen Screen Non Reactive Non Reactive 07/07/2023 2:13 PM EDT [facility] Comment:Screening for HIV 1 & 2 antibodies, and P24 antigen is NONREACTIVE. No confirmatory testing is required. Blood Venous blood specimen / Unknown Venipuncture / Unknown 07/07/2023 1:12 PM EDT 07/07/2023 1:32 PM EDT us Rex Neville MD LAB BLOOD ORDERABLES Final Result Performing Organization Address City/[facility] Co de Phone Number [facility] [address] [place] [address] * Hepatitis C Antibody - ED (07/07/2023 1:12 PM EDT) Hepatitis C Antibody Negative Negative 07/07/2023 2:13 PM EDT [facility] Blood Venous blood specimen / Unknown Venipuncture / Unknown 07/07/2023 1:12 PM EDT 07/07/2023 1:32 PM EDT us Rex Neville MD LAB BLOOD ORDERABLES Final Result Performing Organization Address City/[facility]/ZIP Co de Phone Number [facility] [address] [place] [address] from Last 3 Months or Most Recently Relevant to Health Maintenance Insurance [employer] [facility] MEDICAID Advance Directives * Full Code (Latest Code Status on File) Date Activated Date Inactivated Comments 07/07/2023 12:59 PM 07/09/2023 7:24 PM Question Answer Comments Patient has decision-making capacity? Yes Care Teams Australian Rules Footballer Relationship Specialty Start Date End Date Tonya Ring APRN [facility] [place] [address] PCP - General 07/09/23 Karlie Hannon APRN [address] [place] [address] 06/09/23
--- OUTSIDE RECORDS SUMMARY | 2025-04-09 18:58 | XMS_ITS | Encounter Summary ---
Author Organization [employer] ([place], [place], [place], [place]) Address [address] [place] [address] Care Team Providers Care Chief Deputy Sheriff Name Role Phone Pankaj De MD Primary Care Provider [phone] Judith Barnes MD Primary Care Provider [phone] Reason for Visit * Reason Onset Date Comments Appointment 08/18/2024 Encounter Details Date Type Department Care Team (Late st Contact Info) Description 08/18/2024 Telephone [facility] Primary Care [address] [facility] [address] [place] [address] Judith Barnes MD [address] [facility] [address] [place] [address] Appointment Social History Tobacco Use Types Packs/Day Years Used Date Smoking Tobacco: Never Assessed Comments Unknown Sex and Gender Information Value Date Recorded Sex Assigned at Not on file Legal Sex Female 5:23 PM CDT Gender Identity Not on file Sexual Orientation Not on file documented as of this encounter Miscellaneous Notes * Telephone Encounter - Mahesh Russb - 08/18/2024 10:05 AM EST Appointment Type: New Patient Reason for appointment request: No Appointment Available Within PSR Guidelines Next available appointment scheduled: Visit date not found Last Visit: Visit date not found Additional information: Pt is calling would like to est with states her and discussed. 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 Caller name: Poncho, Tatyana Relation to patient: Best Call Back OK to leave message on voicemail: yes TENDER documented in this encounter Plan of Treatment Upcoming Encounters Date Type Department Care Team (Late st Contact Info) Description 05/02/2025 3:45 PM EDT Office Visit [facility] Primary Care [address] [phone] Judith Barnes MD [address] [address] documented as of this encounter Visit Diagnoses Not on filedocumented in this encounter Care Teams Chief Deputy Sheriff Relationship Specialty Start Date End Date Paknaj De MD [address] [place] [id number] PCP - General Family Medicine 08/29/24 09/11/24 Judith Barnes MD [address] [address] PCP - General Internal Medicine 09/12/24 documented as of this encounter
--- OUTSIDE RECORDS SUMMARY | 2025-04-09 18:58 | XMS_ITS | Encounter Summary ---
Author Organization [employer] ([place], [place], [place], [place]) Address [address] [place] [address] Care Team Providers Care Healthcare Applications Analyst Name Role Phone Judith Barnes MD Primary Care Provider Encounter Details Date Type Department Care Team (Late st Contact Info) Description 02/05/2025 Abstract [facility] Care [address] [facility] [address] [place] [address] Heather Ang CMA Social History Tobacco Use Types Packs/Day Years Used Date Smoking Tobacco: Never Smokeless Tobacco: Never Alcohol Use Standard Drinks/Week Comments Not Asked 0 (1 standard drink = 0.6 oz pur e alcohol) occasionally Comments No Sex and Gender Information Value Date Recorded Sex Assigned at Not on file Legal Sex Female 5:23 PM CDT Gender Identity Not on file Sexual Orientation Not on file documented as of this encounter Plan of Treatment Upcoming Encounters Date Type Department Care Team (Late st Contact Info) Description 05/02/2025 3:45 PM EDT Office Visit [facility] Care [address] [facility] [address] [place] [address] Judith Barnes MD [address] [facility] [address] [place] [address] documented as of this encounter Visit Diagnoses Not on filedocumented in this encounter Care Teams Healthcare Applications Analyst Relationship Specialty Start Date End Date Judith Barnes MD [address] [facility] [address] [place] [address] PCP - General Internal Medicine 09/12/24 documented as of this encounter
--- OUTSIDE RECORDS SUMMARY | 2025-04-09 18:58 | XMS_ITS | Patient Health Record ---
Author Organization [facility] Address [address] [place] [address] Care Team Providers Care Public Finance Specialist Name Role Phone Ruma TRINH, Son Primary Care Provider Reason For Referral No Information Immunizations Vaccine Route Administration Date Status Comme nts Influenza (Fluecelvax Single Dose) trivalent (ccIIV3), derived from cell cultures, subunit, antibiotic free, 0.5-mL dosage, for intramuscular use IM Intramuscular 08/02/2024 Administered Social History Sex Assigned At : Social History Observation Description Sex Assigned At Female Encounters Encounter Location Date Provider Diagnosis [facility] [address] [place] [address] 08/02/2024 Abad Hendrix Encounter for immunization Z23 Assessments Encounter Date Diagnosis (ICD Code) Assessment Notes Treatment Notes Treatment Clinical Notes Section Notes 08/02/2024 Encounter for immunization (ICD-10 - Z23) Plan Of Treatment No Information Insurance Providers Payer Name Payer Address Payer Phone Subscriber Number Group Number Insured Name Patient Relationship to Insured Coverage Start Date Coverage End Date MARGARITA WALKER FFS MCR ADV PPO [address] [place] [address] [id number] Self - patient is the insured 4
--- OUTSIDE RECORDS SUMMARY | 2025-04-09 18:59 | XMS_ITS | Referral Summary ---
Author Organization [employer] ([place], [place], [place], [place]) Address [address] [place] [address] Care Team Providers Care Injection Molding Engineer Name Role Phone Judith Barnes MD Primary Care Provider [phone] Encounters Date Type Department Care Team Description 02/05/2025 Abstract [facility] [address] [facility] [facility] [address] [place] [address] Heather Ang CMA 01/26/2025 Travel 01/26/2025 3:45 PM EDT Office Visit [facility] [address] [facility] [facility] [address] [place] [address] Judith Barnes MD Type 2 diabetes mellitus without complication, without long-term current use of insulin (HCC) (Primary Dx); History of stroke; Primary hypertension; Mixed hyperlipidemia; Menopausal symptoms from Last 3 Months Allergies Active Allergy Reactions Criticality Noted Date Comments Ciprofloxacin Other (See Comments) 08/28/2024 Body aches Fentanyl Other (See Comments) 08/28/2024 Makes me crazy Morphine 08/28/2024 Makes me crazy Medications cyclobenzaprine (FLEXERIL) 10 MG tablet Take 1 tablet (10 mg total) by mouth every 8 (eight) hours as needed for muscle spasms. Active HYDROcodone-clyde taminophen (NORCO) 10-325 mg per tablet Take 1 tablet by mouth daily. Active linaCLOtide (Linzess) 72 mcg cap Take 1 capsule (72 mcg total) by mouth daily as needed. Active ondansetron (ZOFRAN) 4 MG tablet Take 1 tablet (4 mg total) by mouth every 6 (six) hours as needed for nausea or vomiting. Active tiZANidine (ZANAFLEX) 4 MG tablet Take 1 tablet (4 mg total) by mouth once. Active aspirin 81 MG chewable tablet Take 1 tablet (81 mg total) by mouth daily. Active metFORMIN (FORTAMET) 500 MG (OSM) 24 hr tablet Take 1 tablet (500 mg total) by mouth 2 (two) times daily with breakfast and dinner. 180 tablet 1 5 Active pravastatin (PRAVACHOL) 20 MG tablet Take 1 tablet (20 mg total) by mouth nightly. 90 tablet 1 5 01/27/20 26 Active metoprolol succinate (TOPROL-XL) 25 MG 24 hr tablet Take 1 tablet (25 mg total) by mouth daily. 90 tablet 1 5 Active fezolinetant (Veozah) 45 mg tab Take 45 mg by mouth daily. 90 tablet 1 5 Active ezetimibe (ZETIA) 10 mg tablet Take 1 tablet (10 mg total) by mouth nightly. 90 tablet 1 5 Active amLODIPine (NORVASC) 5 MG tablet Take 1 tablet (5 mg total) by mouth daily. 90 tablet 1 5 Active semaglutide (Ozempic) 0.25 mg or 0.5 mg(2 mg/1.5 mL) pnijIndications :Type 2 diabetes mellitus without complication, without long-term current use of insulin (HCC) Inject 0.1875 mLs (0.25 mg total) under the skin every 7 days for 28 days, THEN 0.375 mLs (0.5 mg total) every 7 days for 56 days. Please dispense pen needles qs 90 day. 4.5 mL 5 04/20/20 25 Active Active Problems Problem Noted Date Diagnosed Date Menopausal symptoms 01/29/2025 CAD (coronary artery disease) 09/12/2024 Overview (09/12/2024): She's had 2 MN's (one time had takosubo and another where she had post surgical EF down to 30%). She's had 2 heart caths that did not show blockages but she had elevated trop and abnormal echo. Assessment & Plan (09/12/2024 10:40 AM EST): Follows with cardiology at , Dr Eugene. Tension headache, chronic 09/12/2024 Overview (09/12/2024): Sees neurology and pain mgmt. Gets epidurals. Nothing much has helped. Mixed anxiety depressive disorder 09/12/2024 Overview (09/12/2024): Chronic and somewhat related to her chronic pain issues. She's been on multiple meds in the past and never been really helpful. Assessment & Plan (09/12/2024 10:37 AM EST): She prefers to stay off meds for now. Feels like her mood is stable. Not open to seeing a therapist currently. IBS (irritable bowel syndrome) 09/12/2024 Aseptic meningitis 09/12/2024 Overview (09/16/2024): Thought to be possibly related to COVID by neurology. Had negative workup for immunosuppressing conditions. 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 Back to baseline pretty quickly. Takes ASA 81mg daily. She was on pradaxa for a while, stopped by neuro after 6 mos. Assessment & Plan (09/12/2024 10:46 AM EST): Continues on daily baby ASA, following with neuro. Stenosis of left carotid artery 07/20/2023 Overview (09/12/2024): CT angiogram neck (07/08/2023): Approximately 50% stenosis in the proximal left internal carotid artery just at its origin. No significant stenosis is seen in the right cervical carotid artery or the vertebral arteries. Assessment & Plan (09/12/2024 10:30 AM EST): She has repeat imaging at least yearly, being followed by neurosurg (Given) Migraine with aura, intractable, with status justin rainosus 07/07/2023 Cerebral aneurysm, nonruptured 09/22/2021 Overview (09/12/2024): 2 mm right ICA cerebral aneurysm found incidentally when MRI ordered for chronic headache Status post embolization of right ICA cerebral aneurysm with Dr. Gautam tamayo on 12/03/2021 CTA Head (07/08/2023): A flow diverting stent is in situ in the intracranial right internal carotid artery; no aneurysm is seen. Assessment & Plan (09/12/2024 10:35 AM EST): Follows with NS, s/p coiling. Now at yearly f/u. Type 2 diabetes mellitus wit hout complication, without long-term current use of insulin 04/10/2020 Overview (09/12/2024): Pt reports last A1c was 6.8, treated with metformin Assessment & Plan (01/29/2025 7:39 AM EDT): Trial of add ozempic Assessment & Plan (09/12/2024 10:27 AM EST): Check A1c today Insomnia 04/10/2020 Primary hypertension 04/10/2020 Overview (09/12/2024): Reports is very labile. Currently on metoprolol and norvasc. Reports norvasc was started to treat artery spasms that lead to chest pain. Assessment & Plan (09/12/2024 10:28 AM EST): Good control today on current. Hyperlipidemia 01/23/2020 Overview (09/12/2024): High intensity statin therapy indicated due to the presence of carotid disease Assessment & Plan (01/29/2025 7:40 AM EDT): Tolerating lower intensity statin along with zetia. Most recent LDL 92 Assessment & Plan (09/12/2024 10:31 AM EST): Stopped statin 2 mos ago d/t body (atorvastatin 80mg). Also takes zetia. Today will try lower intensity statin - pravastatin and try to increase as tolerated. Resolved Problems Problem Noted Date Diagnosed Date Resolved Date Hypothyroidism 09/12/2024 09/12/2024 Pneumonia due to COVID-19 virus 09/12/2024 09/12/2024 Myocardial infarct 09/12/2024 Takotsubo cardiomyopathy 12/22/202107/2024 Overview (09/12/2024): Acute onset of chest pain and anterior wall motion abnormality on echo immediately following coiling of cerebral aneurysm, 12/03/2021 Cardiac catheterization (12/03/2021): Minimal CAD. Normal thoracic aorta Echo (12/03/2021): LVEF 50%. LV wall segments hypokinetic in anterior and anterior septal area. No significant valvular abnormality. Cardiac MR (12/05/2021): Focal wall motion abnormality in the mid anterior wall with no gadolinium enhancement to suggest edema, scar. Recurrent CP with normal troponin and non-specific EKG, 12/21/2021 Cardiac catheterization for chest pain 4 days following hysterectomy (01/21/2023): Normal coronary arteries. LVEF 35% with mid anterior and inferior hypokinesis. Scenario consistent with atypical stress-induced cardiomyopathy Echo at (01/30/2023): LVEF 30-35%. Mild MR. Echo at (07/09/2023): LVEF 63%. Mild TR. Social History Tobacco Use Types Packs/Day Years Used Date Smoking Tobacco: Never Smokeless Tobacco: Never Tobacco Cessation:Counseling Given: Not Answered Alcohol Use Standard Drinks/Week Comments Not Asked 0 (1 standard drink = 0.6 oz pur e alcohol) occasionally Comments No Sex and Gender Information Value Date Recorded Sex Assigned at Not on file Legal Sex Female 5:23 PM CDT Gender Identity Not on file Sexual Orientation Not on file Last Filed Vital Signs Vital Sign Reading Time Taken Comments Blood Pressure 125/80 01/26/2025 3:51 PM EDT Pulse 87 01/26/2025 3:51 PM EDT Temperature 36.4 C (97.5 F) 01/26/2025 3:51 PM EDT Respiratory Rate 17 08/29/2024 11:02 AM EST Oxygen Saturation 97% 01/26/2025 3:51 PM EDT Inhaled Oxygen Concentration - - Weight 94.3 kg (208 lb) 01/26/2025 3:51 PM EDT Height 167.6 cm (5' 6 ) 01/26/2025 3:51 PM EDT Body Mass Index 33.57 01/26/2025 3:51 PM EDT Plan of Treatment Upcoming Encounters Date Type Department Care Team (Late st Contact Info) Description 05/02/2025 3:45 PM EDT Office Visit [facility] [address] [facility] [address] [place] [address] Judith Barnes MD [address] [facility] [facility] [address] [place] [address] Procedures Procedure Name Priority Date/Time Associated Diagnosis Comments POCT GLYCATED HEMOGLOBIN, TOTAL Routine 01/26/2025 4:02 PM EDT Type 2 diabetes mellitus without complication, without long-term current use of insulin (HCC) from Last 3 Months Results * POCT(A1c) glycated hemoglobin, total (01/26/2025 4:02 PM EDT) Hemoglobin A1C 6.4 % 01/26/2025 4:02 PM EDT Judith Barnes MD POINT OF CARE TEST ORDERABLES Final Result from Last 3 Months Insurance [employer] [facility] BLUE CROSS/BLUE SHIELD Care Teams Injection Molding Engineer Relationship Specialty Start Date End Date Judith Barnes MD [address] [place] [address] [address] [place] [address] PCP - General Internal Medicine 09/12/24
--- OUTSIDE RECORDS SUMMARY | 2025-04-09 18:59 | XMS_ITS | Clinical Summary ---
Author Organization [employer] ([place], [place], [place], [place]) Address [address] [place] [address] Care Team Providers Care Briquette Operator Name Role Phone Judith Barnes MD Primary Care Provider [phone] Allergies Active Allergy Reactions Criticality Noted Date [...] with breakfast and dinner. 180 tablet 1 Active pravastatin (PRAVACHOL) 20 MG tablet Take [...] disease) 09/12/2024 Overview (09/12/2024): She's had 2 AZ's (one time had takosubo and another where [...] Echo at (07/09/2023): LVEF 63%. Mild TR. Encounters Date Type Department Care Team Description 02/05/2025 Abstract [facility] [address] [facility] [address] [place] [address] Heather Ang CMA 01/26/2025 3:45 PM EDT Office Visit [facility] [address] [facility] [address] [place] [address] Judith Barnes MD Type 2 diabetes mellitus without complication, without long-term current use of insulin (HCC) (Primary Dx); History of stroke; Primary hypertension; Mixed hyperlipidemia; Menopausal symptoms 01/26/2025 Travel from Last 3 Months Social History Tobacco Use Types Packs/Day Years [...] Description 05/02/2025 3:45 PM EDT Office Visit [facility] [address] [facility] [address] [place] [address] Judith Barnes MD [address] [facility] [address] [place] [address] Health Maintenance Due Date Last Done Comments CT Colonography 1977 Colonoscopy 1977 Colorectal Cancer Screening 1977 Diabetic Kidney Health Evalu ation (KED) 1977 FOBT/FIT 1977 Fit-DNA (Cologuard) 1977 Sigmoidoscopy 1977 Diabetic Eye Exam 1987 HIV Screening 1992 Hepatitis C Screening 1995 Pneumococcal Vaccine: 0-49 Y ears (1 of 2 - PCV) 1996 Pap Smear 1998 Breast Cancer Screening 2017 COVID-19 VACCINE (1 - season) 2024 Influenza Vaccine (#1) 2025 Hemoglobin A1C 07/28/2025 01/26/2025 Tobacco Cessation Counseling and Screening (12+) 01/29/2026 01/29/2025 Lipid Panel 12/28/2027 12/27/2024, 10/0 02/2023, 12/22/2021 DTAP/TDAP/TD VACCINES (3 - T d or Tdap) 12/04/2034 12/04/2024, 12/07/2013 Procedures Procedure Name Priority Date/Time Associated Diagnosis [...] Final Result from Last 3 Months [facility] Care Teams Briquette Operator Relationship Specialty Start Date End Date Judith Barnes MD [address] [facility] [address] [place] [address] PCP - General Internal Medicine 09/12/24
[2025-04-09] MEDS: KETOROLAC 30MG/ML VIAL 30 MG IV (19:36)
[2025-04-09] MEDS: ORPHENADRINE CITRATE 60MG/2ML VIAL 60 MG IV (19:36)
[2025-04-09] MEDS: HYDROMORPHONE 2MG/ML SYRINGE 0.5 MG IV (19:37)
[2025-04-09] MEDS: LIDOCAINE 5% TRANSDERMAL PATCH 1 EACH TD (19:38)
--- NOTE | 2025-04-09 20:00 | HMH.EDGENADL ---
Discharge Plan Disposition Patient Disposition: Home, Self-Care Prescriptions Prescriptions: No Action albuterol sulfate [ProAir HFA] 90 mcg/actuation HFA aerosol inhaler 2 puff INHALATION BIDP PRN (Reason: Shortness Of Breath) metoprolol succinate 25 mg tablet extended release 24 hr 25 mg PO DAILY Qty: 30 5RF ondansetron 8 mg tablet,disintegrating 8 mg PO TIDP PRN (Reason: Nausea And Vomiting) atorvastatin [Lipitor] 40 mg tablet 80 mg PO DAILY tizanidine 2 mg tablet 2 mg PO DAILY lorazepam 1 mg tablet 1 mg PO HS promethazine 25 mg tablet 25 mg PO BIDP PRN (Reason: Nausea) cyclobenzaprine 10 mg tablet 10 mg PO BID amlodipine [Norvasc] 5 mg tablet 5 mg PO DAILY Qty: 30 5RF Nurtec ODT 75 mg tablet,disintegrating 75 mg PO NEEDED PRN (Reason: Migraine Headache) aspirin 81 mg Tablet,Delayed Release (Dr/Ec) 81 mg PO DAILY Qty: 30 0RF Ozempic 0.25 mg or 0.5 mg (2 mg/3 mL) Pen Injector 0.25 mg SQ WEEKLY Veozah 45 mg tablet 45 mg PO DAILY paroxetine HCl 10 mg Tablet 10 mg PO DAILY 30 Days Qty: 30 0RF gabapentin 400 mg Capsule 400 mg PO TID 15 Days Qty: 45 0RF acyclovir 400 mg Tablet 800 mg PO 5XDAY 5 Days Qty: 50 0RF atogepant 60 mg Tablet 60 mg PO DAILY Qty: 0 0RF Referrals Follow up/Referrals: Tonya Ring APRN [Primary Care Provider, Medical] - See instructions Activity Restrictions/Add. Instructions Additional Instructions/Restrictions: Follow-up with your pain management team tomorrow. Continue your pain regimen at home as prescribed. Clinical Impressions Clinical Impression: Radiculopathy, Back muscle spasm Instructions Patient Instructions: DI for Back Spasm Print Language Print Language: Syrian Discharge ED Provider: Agapito Corona Adult HPI <Tonya Ring (ED), MARIYA - Last Filed: 04/09/25 22:04> General Chief complaint: Back Pain/Injury Stated complaint: Muscle spasms in back,no injury Time Seen by Provider: 04/09/25 19:13 Mode of Arrival: Ambulatory Source of Information: Patient Description of Symptoms (Recalled from ER Triage Doc. by RN): pt is here for muscle spasms she has them chronic, todays episodes started at 1500, pt took a muscle relaxer got in hot tub and used massage gun and has had no relief, pt has seen pain mgmt in the past and hasnt follow up with them in several months as well as pt states insurance stopped covering her pain pills and they wont let her buy them out right with [facility] History of Present Illness HPI narrative: 49-year-old female presents to the ED today for complaint of muscle spasm in the center of her back. She says that this is a chronic pain for the last 28 years. She says these episodes started about 3:00 today when she was finished mowing. States that she has been seeing pain management to do Botox injections for this pain. But she saw them 2 weeks ago and they are still waiting on insurance approval for the Botox injections. She says these do help when they are able to do them. But insurance is not covering them. Patient states that her medication has not been covered recently and she has having to buy them without insurance. Patient is having difficulty even moving her arms at this time due to the pain. She has tried heat, the hot tub she has used a massager to try to help. She says it is along her bra line to the right of her spine around to where her lung is. No chest pain or shortness of breath. No nausea vomiting or diarrhea. No other symptoms at this time. Related Data Home Medications ?Medication ?Instructions ?Recorded ?Confirmed albuterol sulfate 90 mcg/actuation 2 puff inhalation BIDP PRN 01/05/22 05/05/24 aerosol inhaler (ProAir HFA) Shortness Of Breath atorvastatin 40 mg tablet (Lipitor) 80 mg PO DAILY 06/16/23 05/05/24 ondansetron 8 mg disintegrating 8 mg PO TIDP PRN Nausea And 06/16/23 05/05/24 tablet Vomiting tizanidine 2 mg tablet 2 mg PO DAILY 06/16/23 05/05/24 cyclobenzaprine 10 mg tablet 10 mg PO BID 08/09/23 05/05/24 lorazepam 1 mg tablet 1 mg PO HS 08/09/23 05/05/24 promethazine 25 mg tablet 25 mg PO BIDP PRN Nausea 08/09/23 05/05/24 rimegepant 75 mg disintegrating 75 mg PO NEEDED PRN Migraine 08/09/23 05/05/24 tablet (Nurtec ODT) Headache fezolinetant 45 mg tablet (Veozah) 45 mg PO DAILY 05/05/24 05/05/24 semaglutide 0.25 mg or 0.5 mg (2 0.25 mg SQ WEEKLY 05/05/24 05/05/24 mg/3 mL) subcutaneous pen injector (Ozempic) Previous Rx's ?Medication ?Instructions ?Recorded aspirin 81 mg tablet,delayed 81 mg PO DAILY #30 tabs 02/01/23 release metoprolol succinate 25 mg 25 mg PO DAILY #30 tabs 02/09/23 tablet,extended release 24 hr amlodipine 5 mg tablet (Norvasc) 5 mg PO DAILY #30 tabs 11/03/23 acyclovir 400 mg tablet 800 mg (2 x 400 mg) PO 5X 5 05/06/24 days #50 tabs atogepant 60 mg tablet 60 mg PO DAILY #0 tabs 05/06/24 gabapentin 400 mg capsule 400 mg PO TID 15 days #45 caps 05/06/24 paroxetine HCl 10 mg tablet 10 mg PO DAILY 30 days #30 tabs 05/06/24 Allergies Allergy/AdvReac Type Severity Reaction Status Date / Time fentanyl Allergy Severe Anxiety Verified 03/13/24 10:10 ciprofloxacin (From Cipro) Allergy Mild Verified 03/13/24 10:10 morphine Allergy Verified 03/13/24 10:10 [facility] <Tonya Ring (SERINA), ASSOCIATE DIRECTOR FINANCE - Last Filed: 04/09/25 22:04> [facility] Disclaimer: The information contained in this section may have been updated after the patient was seen, as this information can be updated by other users. Medical History 2nd degree AV block History of stroke Takotsubo cardiomyopathy Brain aneurysm H/O chronic meningitis Abnormal uterine bleeding Pelvic pain Asthma Endometriosis Migraine Anxiety Irritable bowel syndrome (IBS) History of heart attack History of anemia Menorrhagia Angina pectoris syndrome Headache Depression HLD (hyperlipidemia) HTN (hypertension) History of meningitis Brain aneurysm Dizziness Dyspnea Myocardial infarct Sacroiliitis Surgical History S/P laparoscopic hysterectomy History of endometrial ablation History of cholecystectomy H/O tubal ligation Hx of cholecystectomy History of arthroscopy of right shoulder H/O cerebral aneurysm repair Family History Mother Ovarian cancer Family history of stroke Grandmother Lung cancer Other Family history of diabetes mellitus type II Family history of myocardial infarction No significant family history Social History Smoking Status: Former smoker alcohol intake: never substance use type: denies use current occupational status: employed Travel in the last 8 weeks?: None household members: significant other and children housing: house lives independently: Yes marital status: education level: other current occupational exposures/hazards: No caffeine: Yes do you feel safe at home: Yes victim of physical abuse: No victim of emotional abuse: No victim of sexual abuse: No Have you lived/traveled outside [place] in past 30 days?: No Contact w/someone who lives/traveled outside US past 30 days?: No Exposure to someone with infectious disease in past 14 days?: No Do you have a fever (greater than 100.4 F or 38 C)?: No Have you tested positive for COVID-19?: No Exposed to someone with COVID-19 in past 14 days?: No Do you have a sore throat?: No Do you have a cough?: No Do you have any weakness?: No Do you have any diarrhea?: No Are you experiencing any unusual bleeding?: No Do you have any muscle aches/pain?: No Do you have any abdominal pain?: No Are you experiencing loss of taste or smell?: No Other Medical History Have you received the Flu Vaccine for this season: No Have you received the Pneumonia Vaccine: No <Tonya Ring (ED), ASSOCIATE DIRECT[employer] - Last Filed: 04/09/25 22:04> ROS Obtained: Yes Systems reviewed as appropriate & no additional complaints except as documented Constitutional Constitutional: Reports as per HPI Physical Exam <Tonya Ring (ED), ASSOCIATE DIRECT[employer]ANCE - Last Filed: 04/09/25 22:04> General General appearance: alert and in distress Head Head exam: atraumatic and normocephalic Eye Eye exam: Present normal appearance, PERRL and EOMI ENT ENT exam: Present normal oropharynx and mucous membranes moist Neck Neck exam: Present full ROM and trachea midline Respiratory Respiratory exam: Present normal lung sounds bilaterally Cardiovascular Cardiovascular exam: Present regular rate, normal rhythm, normal heart sounds, +S1 and +S2 Extremities Exam Extremities exam: Present normal inspection, full ROM and normal capillary refill Back Exam Back exam: Present muscle spasm and paraspinal tenderness Neurological Exam Neurological exam: Present alert and oriented X3 Skin Skin exam: Present warm, dry and intact Medical Decision Making <Tonya Ring (ED), ASSOCIATE DIRECTOR FINANCE - Last Filed: 04/09/25 22:04> Medical Records Screening: Per USPSTF and CDC recommendations, given the prevalence of disease in our region, it is our hospital?s policy to screen for HIV and viral Hepatitis for all patients aged 18 and over and those with ongoing risk factors. Tim Inquiry Pt receiving controlled substance: No Tim was queried for this patient: No Vital Signs: 04/09/25 18:58 04/09/25 19:00 04/09/25 19:15 Temperature 98.3 F Temperature Source Oral Pulse Rate 90 87 Pulse Rate [Left Radial] 90 Respiratory Rate 20 Blood Pressure 137/84 144/80 H Blood Pressure [Right Arm] 130/91 H Blood Pressure Mean Blood Pressure Mean [Right Arm] 104 Blood Pressure Source Blood Pressure Position 02 Sat by Pulse Oximetry 100 100 99 Oxygen Delivery Method Room Air 04/09/25 19:16 04/09/25 19:30 04/09/25 19:31 Temperature Temperature Source Pulse Rate 84 88 84 Pulse Rate [Left Radial] Respiratory Rate 16 16 Blood Pressure 132/84 139/82 124/78 Blood Pressure [Right Arm] Blood Pressure Mean Blood Pressure Mean [Right Arm] Blood Pressure Source Automatic Cuff Automatic Cuff Blood Pressure Position Sitting Sitting 02 Sat by Pulse Oximetry 99 98 99 Oxygen Delivery Method Room Air Room Air 04/09/25 19:42 04/09/25 20:00 04/09/25 20:15 Temperature Temperature Source Pulse Rate 88 Pulse Rate [Left Radial] Respiratory Rate Blood Pressure 137/82 137/82 146/75 H Blood Pressure [Right Arm] Blood Pressure Mean 104 110 Blood Pressure Mean [Right Arm] Blood Pressure Source Blood Pressure Position 02 Sat by Pulse Oximetry 100 Oxygen Delivery Method 04/09/25 20:30 04/09/25 20:45 04/09/25 21:00 Temperature Temperature Source Pulse Rate 69 Pulse Rate [Left Radial] Respiratory Rate Blood Pressure 137/79 148/106 H 119/68 Blood Pressure [Right Arm] Blood Pressure Mean 98 111 Blood Pressure Mean [Right Arm] Blood Pressure Source Blood Pressure Position 02 Sat by Pulse Oximetry 96 Oxygen Delivery Method 04/09/25 21:15 04/09/25 21:30 04/09/25 21:45 Temperature Temperature Source Pulse Rate 80 81 76 Pulse Rate [Left Radial] Respiratory Rate Blood Pressure 127/77 127/77 128/79 Blood Pressure [Right Arm] Blood Pressure Mean Blood Pressure Mean [Right Arm] Blood Pressure Source Blood Pressure Position 02 Sat by Pulse Oximetry 96 96 96 Oxygen Delivery Method 04/09/25 22:00 04/09/25 22:15 04/09/25 22:30 Temperature Temperature Source Pulse Rate 85 76 84 Pulse Rate [Left Radial] Respiratory Rate Blood Pressure 115/72 121/60 118/66 Blood Pressure [Right Arm] Blood Pressure Mean Blood Pressure Mean [Right Arm] Blood Pressure Source Blood Pressure Position 02 Sat by Pulse Oximetry 96 93 L 94 L Oxygen Delivery Method Orders (Tests/Meds): ED MEDICATIONS Discontinued Medications Generic Name Dose Route Start Last Admin Trade Name Freq PRN Reason Stop Dose Admin Diazepam 5 mg 04/09/25 20:26 04/09/25 20:53 Diazepam 10mg/2ml Syringe IV 04/09/25 20:27 5 mg ONCE ONE Administration Hydromorphone HCl 0.5 mg 04/09/25 19:18 04/09/25 19:37 Hydromorphone 2mg/Ml Syringe IV 04/09/25 19:19 0.5 mg ONCE ONE Administration Hydromorphone HCl 1 mg 04/09/25 20:26 04/09/25 20:57 Hydromorphone 2mg/Ml Syringe IV 04/09/25 20:27 1 mg ONCE ONE Administration Ketorolac Tromethamine 30 mg 04/09/25 19:18 04/09/25 19:36 Ketorolac 30mg/Ml Vial IV 04/09/25 19:19 30 mg ONCE ONE Administration Lidocaine 1 each 04/09/25 19:18 04/09/25 19:38 Lidocaine 5% Transdermal Patch TD 04/09/25 19:19 1 each ONCE ONE Administration Midazolam HCl 3 mg 04/09/25 21:51 04/09/25 21:59 Midazolam Hcl 1mg/Ml 5ml Vial IV 04/09/25 21:52 3 mg ONCE ONE Administration Orphenadrine Citrate 60 mg 04/09/25 19:18 04/09/25 19:36 Orphenadrine Citrate 60mg/2ml Vial IV 04/09/25 19:19 60 mg ONCE ONE Administration Medical Decision Narrative: patient is a 49-year-old female presenting to the emergency department for evaluation of chronic pain that is in her back along her bra line in the right side of her spine around her lung on the right. She has no shortness of breath. She has had this pain chronically for 28 years. She says that she sees Dr. Bender at the pain clinic and gets Botox injections typically. She has not had 1 recently because insurance will not approve them but this is the only thing that really helps. Last time she was here she ended up getting Dilaudid, Versed, pain dose ketamine to finally calm down the pain. Patient is hemodynamically stable and appears to be in pain, afebrile. Differential diagnosis includes chronic back pain usually relieved by Botox injections that she cannot get at this time. Patient has had imaging several times in the past and says that it typically does not reveal anything. She is seeing pain management and had imaging as well. She says this is muscle pain and she has had no trauma. Says that she was mowing the yard and using a 0 turn and this exacerbated the pain. Patient initially given Norflex, 0.5 of Dilaudid, and Toradol. When I checked on her she is in tears so I ordered 1 of Dilaudid, 5 of Valium to try to help. Patient continues to have pain in her mid back despite the pain medications given so far. Discussed with Dr. Corona and we discussed doing a dose of 3 mg Versed to see if this helped her pain. <Agapito Corona MD - Last Filed: 04/09/25 22:52> Vital Signs: 04/09/25 18:58 04/09/25 19:00 04/09/25 19:15 Temperature 98.3 F Temperature Source Oral Pulse Rate 90 87 Pulse Rate [Left Radial] 90 Respiratory Rate 20 Blood Pressure 137/84 144/80 H Blood Pressure [Right Arm] 130/91 H Blood Pressure Mean Blood Pressure Mean [Right Arm] 104 Blood Pressure Source Blood Pressure Position 02 Sat by Pulse Oximetry 100 100 99 Oxygen Delivery Method Room Air 04/09/25 19:16 04/09/25 19:30 04/09/25 19:31 Temperature Temperature Source Pulse Rate 84 88 84 Pulse Rate [Left Radial] Respiratory Rate 16 16 Blood Pressure 132/84 139/82 124/78 Blood Pressure [Right Arm] Blood Pressure Mean Blood Pressure Mean [Right Arm] Blood Pressure Source Automatic Cuff Automatic Cuff Blood Pressure Position Sitting Sitting 02 Sat by Pulse Oximetry 99 98 99 Oxygen Delivery Method Room Air Room Air 04/09/25 19:42 04/09/25 20:00 04/09/25 20:15 Temperature Temperature Source Pulse Rate 88 Pulse Rate [Left Radial] Respiratory Rate Blood Pressure 137/82 137/82 146/75 H Blood Pressure [Right Arm] Blood Pressure Mean 104 110 Blood Pressure Mean [Right Arm] Blood Pressure Source Blood Pressure Position 02 Sat by Pulse Oximetry 100 Oxygen Delivery Method 04/09/25 20:30 04/09/25 20:45 04/09/25 21:00 Temperature Temperature Source Pulse Rate 69 Pulse Rate [Left Radial] Respiratory Rate Blood Pressure 137/79 148/106 H 119/68 Blood Pressure [Right Arm] Blood Pressure Mean 98 111 Blood Pressure Mean [Right Arm] Blood Pressure Source Blood Pressure Position 02 Sat by Pulse Oximetry 96 Oxygen Delivery Method 04/09/25 21:15 04/09/25 21:30 04/09/25 21:45 Temperature Temperature Source Pulse Rate 80 81 76 Pulse Rate [Left Radial] Respiratory Rate Blood Pressure 127/77 127/77 128/79 Blood Pressure [Right Arm] Blood Pressure Mean Blood Pressure Mean [Right Arm] Blood Pressure Source Blood Pressure Position 02 Sat by Pulse Oximetry 96 96 96 Oxygen Delivery Method 04/09/25 22:00 04/09/25 22:15 04/09/25 22:30 Temperature Temperature Source Pulse Rate 85 76 84 Pulse Rate [Left Radial] Respiratory Rate Blood Pressure 115/72 121/60 118/66 Blood Pressure [Right Arm] Blood Pressure Mean Blood Pressure Mean [Right Arm] Blood Pressure Source Blood Pressure Position 02 Sat by Pulse Oximetry 96 93 L 94 L Oxygen Delivery Method Orders (Tests/Meds): ED MEDICATIONS Discontinued Medications Generic Name Dose Route Start Last Admin Trade Name Freq PRN Reason Stop Dose Admin Diazepam 5 mg 04/09/25 20:26 04/09/25 20:53 Diazepam 10mg/2ml Syringe IV 04/09/25 20:27 5 mg ONCE ONE Administration Hydromorphone HCl 0.5 mg 04/09/25 19:18 04/09/25 19:37 Hydromorphone 2mg/Ml Syringe IV 04/09/25 19:19 0.5 mg ONCE ONE Administration Hydromorphone HCl 1 mg 04/09/25 20:26 04/09/25 20:57 Hydromorphone 2mg/Ml Syringe IV 04/09/25 20:27 1 mg ONCE ONE Administration Ketorolac Tromethamine 30 mg 04/09/25 19:18 04/09/25 19:36 Ketorolac 30mg/Ml Vial IV 04/09/25 19:19 30 mg ONCE ONE Administration Lidocaine 1 each 04/09/25 19:18 04/09/25 19:38 Lidocaine 5% Transdermal Patch TD 04/09/25 19:19 1 each ONCE ONE Administration Midazolam HCl 3 mg 04/09/25 21:51 04/09/25 21:59 Midazolam Hcl 1mg/Ml 5ml Vial IV 04/09/25 21:52 3 mg ONCE ONE Administration Orphenadrine Citrate 60 mg 04/09/25 19:18 04/09/25 19:36 Orphenadrine Citrate 60mg/2ml Vial IV 04/09/25 19:19 60 mg ONCE ONE Administration Medical Decision Narrative: patient is a 49-year-old female presenting to the emergency department for evaluation of chronic pain that is in her back along her bra line in the right side of her spine around her lung on the right. She has no shortness of breath. She has had this pain chronically for 28 years. She says that she sees Dr. Bender at the pain clinic and gets Botox injections typically. She has not had 1 recently because insurance will not approve them but this is the only thing that really helps. Last time she was here she ended up getting Dilaudid, Versed, pain dose ketamine to finally calm down the pain. Patient is hemodynamically stable and appears to be in pain, afebrile. Differential diagnosis includes chronic back pain usually relieved by Botox injections that she cannot get at this time. Patient has had imaging several times in the past and says that it typically does not reveal anything. She is seeing pain management and had imaging as well. She says this is muscle pain and she has had no trauma. Says that she was mowing the yard and using a 0 turn and this exacerbated the pain. Patient initially given Norflex, 0.5 of Dilaudid, and Toradol. When I checked on her she is in tears so I ordered 1 of Dilaudid, 5 of Valium to try to help. Patient continues to have pain in her mid back despite the pain medications given so far. Discussed with Dr. Corona and we discussed doing a dose of 3 mg Versed to see if this helped her pain. On reassessment, patient reported improvement in her pain after the Versed. She states is not completely gone but has improved significantly. She wants to go home at this time as she has worked in the morning. Given this, is felt that she is appropriate for discharge at this time. She plans on talking to her insurance tomorrow to see if she can get approved for Botox injections again. Return precautions were given. All questions were answered. She demonstrated understanding and was agreement this plan. She was then discharged from the emergency department in stable condition. Critical Care <Tonya Ring (ED), ASSOCIATE DIRECTOR FINANCE - Last Filed: 04/09/25 22:04> Critical Care Time Critical Care Time: No
[2025-04-09] MEDS: diazePAM 10MG/2ML SYRINGE 5 MG IV (20:53)
[2025-04-09] MEDS: HYDROMORPHONE 2MG/ML SYRINGE 1 MG IV (20:57)
[2025-04-09] MEDS: MIDAZOLAM HCL 1MG/ML 5ML VIAL 3 MG IV (21:59)
== END 2025-04-09 23:00 | disposition home or self-care (01) ==
PROVIDERS: Emergency Provider Student in an Organized Health Care Education/Training Program; PCP Nurse Practitioner
DX: M54.14 Radiculopathy, thoracic region (principal); M62.830 Muscle spasm of back
CPT/HCPCS: 96374; 96375; 96376; 99285; J1171; J1885; J2250; J2360; J3360